=== PATIENT | female | born 1980 | race Caucasian/White ===

== ENCOUNTER → 2020-08-19 10:02 | Outpatient (BNVA) | payer OTHER, SELFPAY | PROVIDERS: Visit Provider Obstetrics & Gynecology | DX: Z76.89 Persons encountering health services in other specified circumstances (principal) ==

== ENCOUNTER → 2021-01-02 08:04 | Outpatient (BNVA) | payer OTHER, SELFPAY | PROVIDERS: PCP Internal Medicine; Visit Provider Obstetrics & Gynecology | DX: N92.1 Excessive and frequent menstruation with irregular cycle (principal); Z79.899 Other long term (current) drug therapy | CPT/HCPCS: 81025 ==

== ENCOUNTER 2021-07-26 09:00 | Outpatient (REF) | payer OTHER, SELFPAY ==
[2021-07-26 09:15] LABS: MANUAL DIFF FLAG NO
[2021-07-26 10:28] LABS: Basophils Absolute Auto 0.1 X10*3/uL (0.0-0.2); Basophils Percent Auto 1.2 % (0-2); Eosinophils Absolute Auto 0.1 X10*3/uL (0.0-0.4); Eosinophils Percent Auto 1.6 % (0-4); Hematocrit 44.8 % (37.0-47.0); Hemoglobin 15.2 g/dl (12.0-16.0); Imm Gran Abs Auto 0.02 X10*3/uL (0.00-0.03); Imm Gran Pct Auto 0.3 % (0.0-0.4); Lymphocytes Absolute Auto 2.2 X10*3/uL (1.2-4.9); Lymphocytes Percent Auto 30.9 % (20-40); Mean Corpuscular HGB Conc 33.9 g/dl (31.0-35.0); Mean Corpuscular Hemoglobin 30.1 pg (27.0-33.0); Mean Corpuscular Volume 88.7 fL (80.0-98.0); Mean Platelet Volume 9.6 fL (9.4-12.3); Monocytes Absolute Auto 0.6 X10*3/uL (0.1-1.2); Monocytes Percent Auto 8.8 % (2-11); Neutrophils Percent Auto 57.2 % (45-73); Platelet Count 526 X10*3/uL (160-400); Red Blood Count 5.05 X10*6/uL (4.20-5.50); Red Cell Distribution Width 13.1 % (11.0-16.0)
[2021-07-26 11:08] LABS: Free T4 (Free Thyroxine) 1.09 ng/dL (0.71-1.85); Thyroid Stimulating Hormone 1.23 uIU/mL (0.32-4.0); Vitamin D 25-OH Total 26.5 ng/mL (>30)
[2021-07-26 11:24] LABS: Alanine Aminotransferase 27 U/L (0-31); Albumin Level 4.5 g/dL (3.5-5.0); Alkaline Phosphatase 80 U/L (39-117); Anion Gap 16 (12-20); Aspartate Amino Transferase 25 U/L (5-31); Bilirubin Total 0.4 mg/dL (0.0-1.0); Blood Urea Nitrogen 13 mg/dL (9-16); Calcium 9.4 mg/dL (8.4-10.2); Carbon Dioxide 26 mmol/L (22-29); Chloride 101 mmol/L (96-108); Cholesterol 258 mg/dL; Estimated Glomerular Filt Rate > 60; Glucose Random 85 mg/dL (60-115); HDL Cholesterol 89 mg/dL; LDL Cholesterol Calculated 153 mg/dl; Potassium 3.8 mmol/L (3.3-5.1); Sodium 139 mmol/L (135-145); Total Protein 8.3 g/dL (6.5-8.0); Triglycerides 82 mg/dL
[2021-07-28 08:29] LABS: HBS Num1 47.78 mIU/mL (0-7.99); Hepatitis B Surface Antigen Negative (Negative); ~HepC Num1 0.08 S/CO (0.00-0.79); ~Hepatitis B Surface Antibody REACTIVE (Nonreactive); ~Hepatitis C Antibody Nonreactive (Nonreactive)
[2021-07-28 08:42] LABS: HBc Num1 0.05 S/CO (0.00-0.79); Hepatitis B Core Antibody Nonreactive (Nonreactive)
[2021-07-28 09:40] LABS: Folate > 20.0 ng/mL (> or = 4.0); Vitamin B12 374 pg/mL (200-900)
== END 2021-07-26 09:01 | disposition home or self-care (01) ==
LOC: HO.LAB 09:00
PROVIDERS: PCP Internal Medicine; Visit Provider Internal Medicine
DX: D75.839 Thrombocytosis, unspecified (principal); E78.00 Pure hypercholesterolemia, unspecified; R79.89 Other specified abnormal findings of blood chemistry; R94.5 Abnormal results of liver function studies; I10 Essential (primary) hypertension
CPT/HCPCS: 36415; 80053; 80061; 82306; 82607; 82746; 84439; 84443; 85025; 86704; 86706; 86803; 87340

== ENCOUNTER 2021-10-18 09:52 | Outpatient (REF) | payer OTHER, SELFPAY ==
[2021-10-18 10:17] LABS: MANUAL DIFF FLAG NO
[2021-10-18 11:59] LABS: Basophils Absolute Auto 0.1 X10*3/uL (0.0-0.2); Basophils Percent Auto 0.8 % (0-2); Eosinophils Absolute Auto 0.4 X10*3/uL (0.0-0.4); Eosinophils Percent Auto 4.5 % (0-4); Hematocrit 43.3 % (37.0-47.0); Hemoglobin 13.9 g/dl (12.0-16.0); Imm Gran Abs Auto 0.02 X10*3/uL (0.00-0.03); Imm Gran Pct Auto 0.3 % (0.0-0.4); Lymphocytes Absolute Auto 2.1 X10*3/uL (1.2-4.9); Lymphocytes Percent Auto 27.7 % (20-40); Mean Corpuscular HGB Conc 32.1 g/dl (31.0-35.0); Mean Corpuscular Hemoglobin 30.1 pg (27.0-33.0); Mean Corpuscular Volume 93.7 fL (80.0-98.0); Mean Platelet Volume 10.1 fL (9.4-12.3); Monocytes Absolute Auto 0.7 X10*3/uL (0.1-1.2); Monocytes Percent Auto 8.8 % (2-11); Neutrophils Absolute Auto 4.5 x10*3/uL (2.0-8.3); Neutrophils Percent Auto 57.9 % (45-73); Platelet Count 390 X10*3/uL (160-400); Red Blood Count 4.62 X10*6/uL (4.20-5.50); Red Cell Distribution Width 13.3 % (11.0-16.0); White Blood Count 7.7 X10*3/uL (4.8-10.8)
[2021-10-18 12:18] LABS: Alanine Aminotransferase 20 U/L (0-31); Alkaline Phosphatase 81 U/L (39-117); Anion Gap 12 (12-20); Aspartate Amino Transferase 21 U/L (5-31); Bilirubin Direct 0.2 mg/dL (0.0-0.5); Bilirubin Total 0.6 mg/dL (0.0-1.0); Blood Urea Nitrogen 13 mg/dL (9-16); Calcium 9.1 mg/dL (8.4-10.2); Carbon Dioxide 28 mmol/L (22-29); Chloride 103 mmol/L (96-108); Cholesterol 254 mg/dL; Estimated Glomerular Filt Rate > 60; Glucose Fasting 77 mg/dL (60-99); HDL Cholesterol 84 mg/dL; LDL Cholesterol Calculated 144 mg/dl; Potassium 4.5 mmol/L (3.3-5.1); Sodium 138 mmol/L (135-145); Total Protein 7.5 g/dL (6.5-8.0); Triglycerides 131 mg/dL
== END 2021-10-18 09:53 | disposition home or self-care (01) ==
LOC: HO.LAB 09:52
PROVIDERS: PCP Internal Medicine; Visit Provider Nurse Practitioner Family
DX: Z00.00 Encounter for general adult medical examination without abnormal findings (principal); E78.5 Hyperlipidemia, unspecified; R79.89 Other specified abnormal findings of blood chemistry; I10 Essential (primary) hypertension; E78.00 Pure hypercholesterolemia, unspecified; D75.839 Thrombocytosis, unspecified
CPT/HCPCS: 36415; 80048; 80061; 80076; 85025

== ENCOUNTER 2021-11-24 10:16 | Outpatient (REF) | payer OTHER, SELFPAY ==
[2021-11-27 11:00] LABS: HPV mRNA E6/E7 rflx Not Detected (Not Detected)
== END 2021-11-24 10:17 | disposition home or self-care (01) ==
LOC: HO.LNP 10:16
PROVIDERS: PCP Internal Medicine; Visit Provider Obstetrics & Gynecology
DX: Z01.419 Encounter for gynecological examination (general) (routine) without abnormal findings (principal)
CPT/HCPCS: 87624; 88142

== ENCOUNTER 2021-12-04 07:34 | Outpatient (REF) | payer OTHER, SELFPAY ==
--- NOTE | ~2021-12-04 | MM_ITS ---
EXAMINATION: MM SCREENING DIGITAL BREAST TOMOSYNTHESIS, BILATERAL CLINICAL INFORMATION: Screening. Asymptomatic. The lifetime risk of breast cancer based on the Tyrer-Cuzick Model is 11.2%. COMPARISON: Mammography: 06/12/2020 and 09/07/2018 TECHNIQUE: Digital breast tomosynthesis is performed in both the craniocaudal and mediolateral oblique views along with computer-aided detection (CAD). Synthesized 2D images are generated from the tomosynthesis. FINDINGS: The breasts are heterogeneously dense, which may obscure small masses (ACR BI-RADS breast composition Category c). There is a stable parenchymal pattern of the right breast without new abnormal dominant mass or suspicious grouping of microcalcifications. Within the left breast inferiorly approximately 3.5 cm from the nipple, without definite correlation on craniocaudal view is a region of architectural distortion for which spot compression film in mediolateral oblique projection and 90-degree mediolateral view are recommended. MM/MM tomosynthesis screening BI IMPRESSION: Left breast density for further evaluation, as described. ASSESSMENT: BI-RADS 0: Incomplete - Need Additional Imaging Evaluation. RECOMMENDATION: 1. Additional views of the left breast. 2. Targeted ultrasound if warranted after review of the additional views. 3. Radiology department staff will contact the patient for additional imaging. This patient's information was entered into a reminder system with a target due date for their next mammogram.
== END 2021-12-04 07:35 | disposition home or self-care (01) ==
LOC: HO.MAMMO 07:34
PROVIDERS: Visit Provider Obstetrics & Gynecology
DX: Z12.31 Encounter for screening mammogram for malignant neoplasm of breast (principal)
CPT/HCPCS: 77063; 77067

== ENCOUNTER 2021-12-22 13:26 | Outpatient (REF) | payer OTHER, SELFPAY ==
--- NOTE | ~2021-12-22 | MM_ITS ---
EXAMINATION: MM DIAGNOSTIC DIGITAL BREAST TOMOSYNTHESIS, LEFT CLINICAL INFORMATION: Recall from screening for question of architectural changes on synthesized left MLO view. COMPARISON: Mammography: 12/04/2021, 06/12/2020, 09/07/2018 (baseline). TECHNIQUE: Digital breast tomosynthesis is performed. 2D images are generated from the tomosynthesis. The following views are obtained: Spot MLO, standard ML. FINDINGS: There are scattered areas of fibroglandular density (ACR BI-RADS breast composition Category b). Breast tissue composition borders on heterogeneously dense. The additional views show no architectural changes in the area of recent concern. There is no developing density or mass. No significant changes from prior studies. Results are discussed with the patient at time of visit. MM/MM tomosynthesis added views L IMPRESSION: Additional views show no architectural abnormality or other interval changes from prior studies. ASSESSMENT: BI-RADS 1: Negative RECOMMENDATION: Routine annual mammography screening. This patient's information was entered into a reminder system with a target due date for their next mammogram.
== END 2021-12-22 13:27 | disposition home or self-care (01) ==
LOC: HO.MAMMO 13:26
PROVIDERS: PCP Internal Medicine; Visit Provider Internal Medicine
DX: N64.89 Other specified disorders of breast (principal)
CPT/HCPCS: 77061; 77065

== ENCOUNTER 2022-01-07 14:45 | Outpatient (REF) | payer OTHER, SELFPAY ==
[2022-01-07 16:26] LABS: Hematocrit 38.2 % (37.0-47.0); Hemoglobin 12.7 g/dl (12.0-16.0); Mean Corpuscular HGB Conc 33.2 g/dl (31.0-35.0); Mean Corpuscular Hemoglobin 30.4 pg (27.0-33.0); Mean Corpuscular Volume 91.4 fL (80.0-98.0); Mean Platelet Volume 10.1 fL (9.4-12.3); Platelet Count 433 X10*3/uL (160-400); Red Blood Count 4.18 X10*6/uL (4.20-5.50); Red Cell Distribution Width 13.1 % (11.0-16.0); White Blood Count 7.7 X10*3/uL (4.8-10.8)
[2022-01-07 17:22] LABS: HCG Quantitative < 2 mIU/mL; TSH reflex Free T4 1.37 uIU/mL (0.32-4.0)
[2022-01-08 05:14] LABS: CT PCR NOT DETECTED (Not Detect.); NG PCR NOT DETECTED (Not Detect.)
== END 2022-01-07 14:46 | disposition home or self-care (01) ==
LOC: HO.LAB 14:45
PROVIDERS: PCP Internal Medicine; Visit Provider Obstetrics & Gynecology
DX: N93.9 Abnormal uterine and vaginal bleeding, unspecified (principal)
CPT/HCPCS: 36415; 58100; 84443; 84702; 85027; 87491; 87591; 88305

== ENCOUNTER 2022-01-27 15:41 | Outpatient (REF) | payer OTHER, SELFPAY ==
--- NOTE | ~2022-01-27 | US_ITS ---
EXAMINATION: US PELVIS CLINICAL INFORMATION: Abnormal uterine and vaginal bleeding COMPARISON: Previous pelvic ultrasound February 2020 TECHNIQUE: Ultrasound of the pelvis is performed using both transabdominal and transvaginal transducers along with Doppler. Transvaginal imaging is performed due to inadequate visualization transabdominally. FINDINGS: The uterus is anteverted and measures 11.3 x 5.6 x 6 cm in dimension. This is increased in size from 8.3 x 4.7 x 4.9 cm on prior 2019 exam. Uterine echotexture is heterogeneous. The endometrium is difficult to define. Appearance is questionable for adenomyomatosis. Endometrial thickness is estimated at 0.6 cm. There are 2 focal lesions in the uterine fundus measuring 3.6 x 3.6 x 2.9 cm and 2.6 x 2.6 x 2.3 cm on questionable for fibroids or adenomyomas. These measure 2.4 x 2.1 x 2.3 cm and 1.8 x 1.9 x 2.1 cm and appear increased in size. The right ovary measures 2.2 x 1.7 x 1.3 cm. There is a small complex cyst in the right ovary measuring 7 x 8 mm. The left ovary is not seen. There is a small amount of fluid in the pelvis. US/US pelvic and transvaginal IMPRESSION: Enlarged heterogeneous uterus with ill-defined endometrium. Findings are questionable for adenomyomatosis. The uterus appears increased in size from previous exam. 2 focal fundal uterine lesions questionable for fibroids versus adenomyomas.
== END 2022-01-27 15:42 | disposition home or self-care (01) ==
LOC: HO.US 15:41
PROVIDERS: Visit Provider Obstetrics & Gynecology
DX: N93.9 Abnormal uterine and vaginal bleeding, unspecified (principal)
CPT/HCPCS: 76830; 76856

== ENCOUNTER → 2022-02-11 08:45 | Outpatient (BNVA) | payer OTHER, SELFPAY | PROVIDERS: PCP Internal Medicine; Visit Provider Obstetrics & Gynecology | DX: Z13.89 Encounter for screening for other disorder (principal) ==

== ENCOUNTER 2022-03-28 15:30 | Outpatient (REF) | payer OTHER, SELFPAY | END 2022-03-28 15:31 | disposition home or self-care (01) | LOC: HO.LNP 15:30 | PROVIDERS: Visit Provider Physician Assistant Medical | DX: L03.032 Cellulitis of left toe (principal) | CPT/HCPCS: 87071; 87205 ==

== ENCOUNTER 2022-04-22 17:12 | Emergency (ER) | payer OTHER, SELFPAY ==
[2022-04-22 17:56] VITALS: BP 146/93; PULSE 77; RESP 18; TEMP 37.3; O2SAT 98; BMI 25.9
[2022-04-22 20:10] LABS: MANUAL DIFF FLAG NO
[2022-04-22 20:14] LABS: UPreg QC Valid YES; Urine Pregnancy NEGATIVE (NEGATIVE)
[2022-04-22 20:15] LABS: Basophils Absolute Auto 0.1 X10*3/uL (0.0-0.2); Basophils Percent Auto 0.3 % (0-2); Hematocrit 42.9 % (37.0-47.0); Hemoglobin 14.4 g/dl (12.0-16.0); Imm Gran Abs Auto 0.06 X10*3/uL (0.00-0.03); Imm Gran Pct Auto 0.3 % (0.0-0.4); Lymphocytes Absolute Auto 1.1 X10*3/uL (1.2-4.9); Lymphocytes Percent Auto 5.8 % (20-40); Mean Corpuscular HGB Conc 33.6 g/dl (31.0-35.0); Mean Corpuscular Hemoglobin 29.1 pg (27.0-33.0); Mean Corpuscular Volume 86.8 fL (80.0-98.0); Mean Platelet Volume 9.2 fL (9.4-12.3); Monocytes Absolute Auto 0.9 X10*3/uL (0.1-1.2); Monocytes Percent Auto 4.7 % (2-11); Neutrophils Absolute Auto 17.2 x10*3/uL (2.0-8.3); Neutrophils Percent Auto 88.9 % (45-73); Platelet Count 425 X10*3/uL (160-400); Red Blood Count 4.94 X10*6/uL (4.20-5.50); Red Cell Distribution Width 14.1 % (11.0-16.0); White Blood Count 19.3 X10*3/uL (4.8-10.8)
[2022-04-22 20:27] LABS: Alanine Aminotransferase 14 U/L (0-31); Albumin Level 4.4 g/dL (3.5-5.0); Alkaline Phosphatase 104 U/L (39-117); Anion Gap 16 (12-20); Aspartate Amino Transferase 18 U/L (5-31); Bilirubin Total 0.5 mg/dL (0.0-1.0); Blood Urea Nitrogen 13 mg/dL (9-16); Calcium 9.4 mg/dL (8.4-10.2); Carbon Dioxide 22 mmol/L (22-29); Chloride 102 mmol/L (96-108); Creatinine Clr Calc Pharmacy 70.5; Estimated Glomerular Filt Rate > 60; Glucose Random 124 mg/dL (60-115); Potassium 4.2 mmol/L (3.3-5.1); Sodium 136 mmol/L (135-145); Total Protein 8.3 g/dL (6.5-8.0)
== END 2022-04-23 00:47 | disposition left against medical advice (07) ==
LOC: HO.ED 04-23 00:45
PROVIDERS: Emergency Provider Emergency Medicine; PCP Obstetrics & Gynecology
DX: R10.30 Lower abdominal pain, unspecified (principal)
CPT/HCPCS: 36415; 80053; 81025; 85025; 99281; 99283

== ENCOUNTER 2022-04-30 08:48 | Outpatient (REF) | payer OTHER, SELFPAY ==
[2022-04-30 09:01] LABS: MANUAL DIFF FLAG NO
[2022-04-30 09:30] LABS: Basophils Absolute Auto 0.1 X10*3/uL (0.0-0.2); Basophils Percent Auto 1.5 % (0-2); Eosinophils Absolute Auto 0.2 X10*3/uL (0.0-0.4); Eosinophils Percent Auto 3.1 % (0-4); Imm Gran Abs Auto 0.03 X10*3/uL (0.00-0.03); Imm Gran Pct Auto 0.5 % (0.0-0.4); Lymphocytes Absolute Auto 2.1 X10*3/uL (1.2-4.9); Lymphocytes Percent Auto 31.6 % (20-40); Mean Corpuscular HGB Conc 32.7 g/dl (31.0-35.0); Mean Corpuscular Hemoglobin 29.3 pg (27.0-33.0); Mean Corpuscular Volume 89.4 fL (80.0-98.0); Mean Platelet Volume 9.5 fL (9.4-12.3); Monocytes Absolute Auto 0.6 X10*3/uL (0.1-1.2); Monocytes Percent Auto 8.7 % (2-11); Neutrophils Absolute Auto 3.6 x10*3/uL (2.0-8.3); Neutrophils Percent Auto 54.6 % (45-73); Platelet Count 530 X10*3/uL (160-400); Red Blood Count 3.69 X10*6/uL (4.20-5.50); Red Cell Distribution Width 13.7 % (11.0-16.0); White Blood Count 6.5 X10*3/uL (4.8-10.8)
[2022-04-30 09:35] LABS: Hemoglobin 10.8 g/dl (12.0-16.0)
[2022-04-30 09:57] LABS: Alanine Aminotransferase 14 U/L (0-31); Alkaline Phosphatase 77 U/L (39-117); Anion Gap 14 (12-20); Aspartate Amino Transferase 16 U/L (5-31); Bilirubin Direct < 0.2 mg/dL (0.0-0.5); Bilirubin Total < 0.2 mg/dL (0.0-1.0); Blood Urea Nitrogen 16 mg/dL (9-16); Carbon Dioxide 24 mmol/L (22-29); Chloride 106 mmol/L (96-108); Cholesterol 219 mg/dL; Estimated Glomerular Filt Rate > 60; Glucose Random 94 mg/dL (60-115); HDL Cholesterol 66 mg/dL; LDL Cholesterol Calculated 132 mg/dl; Potassium 4.9 mmol/L (3.3-5.1); Sodium 139 mmol/L (135-145); Total Protein 7.1 g/dL (6.5-8.0); Triglycerides 105 mg/dL
[2022-05-05 08:32] LABS: CA-125 193 U/mL (<35)
== END 2022-04-30 08:49 | disposition home or self-care (01) ==
LOC: HO.LAB 08:48
PROVIDERS: Nurse Practitioner Family; PCP Internal Medicine; Visit Provider Obstetrics & Gynecology
DX: I10 Essential (primary) hypertension (principal); D75.839 Thrombocytosis, unspecified; E78.00 Pure hypercholesterolemia, unspecified; E78.5 Hyperlipidemia, unspecified
CPT/HCPCS: 36415; 80048; 80061; 80076; 85025; 86304

== ENCOUNTER 2022-05-19 11:03 | Outpatient (REF) | payer OTHER, SELFPAY ==
--- NOTE | ~2022-05-19 | MR_ITS ---
EXAMINATION: MR PELVIS WITHOUT AND WITH CONTRAST CLINICAL INFORMATION: Elevated CA 125. Ovarian cyst. COMPARISON: Previous pelvic ultrasounds most recent 01/27/2022. TECHNIQUE: Sagittal, axial and coronal sequences through the pelvis with and without contrast. The patient received 5.5 mL intravenous Gadavist contrast. FINDINGS: The uterus is enlarged measuring 11.3 x 7.5 x 8 cm in AP, transverse and longitudinal dimension. The endometrium does not appear thickened measuring 4-5 mm. The junctional zone is difficult to define. There are small high T2 foci seen centrally in the uterus surrounding the endometrium. Appearance is suggestive of adenomyomatosis. A focal uterine lesion is not appreciated. The left ovary measures 3.8 x 2.7 x 3.4 cm and contains a 2.3 x 3.2 x 2.9 cm simple cyst. The right ovary is not well visualized. No right adnexal mass is seen. The cervix is normal appearing. There is trace fluid in the pelvis. No ascites or adenopathy. Vascular structures are normal. No hernia. Bony structures are normal. MR/MR pelvis wo/w con IMPRESSION: Enlarged heterogeneous uterus suggestive of adenomyosis. No focal uterine lesion is seen. 2.3 x 3.2 x 2.9 cm simple left ovarian cyst. Trace fluid in the pelvis.
== END 2022-05-19 11:04 | disposition home or self-care (01) ==
LOC: HO.MRI 11:03
PROVIDERS: Visit Provider Obstetrics & Gynecology
DX: R97.1 Elevated cancer antigen 125 [CA 125] (principal)
CPT/HCPCS: 72197; A9585

== ENCOUNTER 2022-06-05 07:53 | Outpatient (REF) | payer OTHER, SELFPAY ==
[2022-06-11 09:02] LABS: CA-125 105 U/mL (<35)
== END 2022-06-05 07:54 | disposition home or self-care (01) ==
LOC: HO.LAB 07:53
PROVIDERS: PCP Internal Medicine; Visit Provider Obstetrics & Gynecology
DX: R97.1 Elevated cancer antigen 125 [CA 125] (principal)
CPT/HCPCS: 36415; 86304

== ENCOUNTER 2022-06-11 13:41 | Outpatient (REF) | payer OTHER, SELFPAY ==
--- NOTE | ~2022-06-11 | US_ITS ---
EXAMINATION: US PELVIS CLINICAL INFORMATION: Ovarian cyst and elevated labs. COMPARISON: None. TECHNIQUE: Ultrasound of the pelvis is performed using both transabdominal and transvaginal transducers along with Doppler. Transvaginal imaging is performed due to inadequate visualization transabdominally. FINDINGS: Uterus: The uterus is anteverted, anteflexed and measures 11.2 cm in length, 6.3 mL in AP and 6.9 cm in transverse dimension. The double wall endometrial thickness is 0.3 x 0.5 cm. The uterus is smooth in contour and heterogeneous. No visible fibroid. Previously visualized fibroid is not seen at this time. Adnexa: Both ovaries are visualized. There is normal color flow to the adnexa. There is no ovarian torsion. There is no pelvic ascites or fluid collection. Right ovary measures 2.2 x 1.4 x 1.1 cm and volume 1.8 mL. There is trace fluid surrounding the right ovary. Previously, the ovary measured 2.2 x 1.7 x 1.3 cm and volume 2.5 mL. Left ovary measures 2.2 x 1.8 x 1.6 cm and volume 3.3 mL; previously it measured 1.7 x 1.5 x 1.2 cm. Complex-appearing cyst measures 1.3 x 1.4 x 1.3 cm. There is minimal free fluid seen in cul-de-sac. US/US pelvic and transvaginal IMPRESSION: Heterogeneous enlarged uterus with no fibroids seen. Complex-appearing cyst left ovary measuring 1.4 c.m There is trace fluid surrounding right ovary and in the cul-de-sac.
== END 2022-06-11 13:42 | disposition home or self-care (01) ==
LOC: HO.US 13:41
PROVIDERS: Visit Provider Obstetrics & Gynecology
DX: N83.292 Other ovarian cyst, left side (principal); R78.9 Finding of unspecified substance, not normally found in blood
CPT/HCPCS: 76830; 76856

== ENCOUNTER 2022-07-08 08:21 | Outpatient (REF) | payer OTHER, SELFPAY ==
[2022-07-08 08:36] LABS: MANUAL DIFF FLAG NO
[2022-07-08 09:03] LABS: Basophils Absolute Auto 0.1 X10*3/uL (0.0-0.2); Basophils Percent Auto 1.5 % (0-2); Eosinophils Absolute Auto 0.5 X10*3/uL (0.0-0.4); Eosinophils Percent Auto 7.8 % (0-4); Hematocrit 32.8 % (37.0-47.0); Hemoglobin 10.4 g/dl (12.0-16.0); Imm Gran Abs Auto 0.02 X10*3/uL (0.00-0.03); Imm Gran Pct Auto 0.3 % (0.0-0.4); Lymphocytes Absolute Auto 1.9 X10*3/uL (1.2-4.9); Lymphocytes Percent Auto 29.8 % (20-40); Mean Corpuscular HGB Conc 31.7 g/dl (31.0-35.0); Mean Corpuscular Hemoglobin 25.9 pg (27.0-33.0); Mean Corpuscular Volume 81.6 fL (80.0-98.0); Mean Platelet Volume 9.6 fL (9.4-12.3); Monocytes Absolute Auto 0.6 X10*3/uL (0.1-1.2); Monocytes Percent Auto 9.2 % (2-11); Neutrophils Absolute Auto 3.3 x10*3/uL (2.0-8.3); Neutrophils Percent Auto 51.4 % (45-73); Platelet Count 485 X10*3/uL (160-400); Red Blood Count 4.02 X10*6/uL (4.20-5.50); Red Cell Distribution Width 15.3 % (11.0-16.0); White Blood Count 6.5 X10*3/uL (4.8-10.8)
[2022-07-08 09:27] LABS: Iron 31 mcg/dL (30-160); Percent Iron Saturation 6 % (15-50); Total Iron Binding Capacity 536 mcg/dL (228-428); Unsaturated Iron Binding 505 ug/dL
== END 2022-07-08 08:22 | disposition home or self-care (01) ==
LOC: HO.LAB 08:21
PROVIDERS: PCP Internal Medicine; Visit Provider Internal Medicine
DX: D64.9 Anemia, unspecified (principal)
CPT/HCPCS: 36415; 83540; 85025

== ENCOUNTER 2022-07-24 09:06 | Outpatient (REF) | payer OTHER, SELFPAY ==
[2022-07-24 09:38] LABS: Hematocrit 35.8 % (37.0-47.0); Hemoglobin 10.6 g/dl (12.0-16.0); Mean Corpuscular HGB Conc 29.6 g/dl (31.0-35.0); Mean Corpuscular Hemoglobin 24.2 pg (27.0-33.0); Mean Corpuscular Volume 81.7 fL (80.0-98.0); Mean Platelet Volume 9.3 fL (9.4-12.3); Platelet Count 591 X10*3/uL (160-400); Red Blood Count 4.38 X10*6/uL (4.20-5.50); Red Cell Distribution Width 17.2 % (11.0-16.0)
== END 2022-07-24 09:07 | disposition home or self-care (01) ==
LOC: HO.LAB 09:06
PROVIDERS: Visit Provider Obstetrics & Gynecology
DX: N93.9 Abnormal uterine and vaginal bleeding, unspecified (principal)
CPT/HCPCS: 36415; 85027

== ENCOUNTER → 2022-08-17 08:40 | Outpatient (BNV) | payer OTHER, SELFPAY | PROVIDERS: PCP Internal Medicine; Referring Provider Internal Medicine; Visit Provider Internal Medicine Medical Oncology | DX: D50.0 Iron deficiency anemia secondary to blood loss (chronic) (principal) | CPT/HCPCS: 99213 ==

== ENCOUNTER 2022-10-08 14:46 | Outpatient (REF) | payer OTHER, SELFPAY ==
--- NOTE | ~2022-10-08 | US_ITS ---
EXAMINATION: US PELVIS CLINICAL INFORMATION: Ovarian cysts. COMPARISON: Ultrasound pelvis 06/11/2022. TECHNIQUE: Ultrasound of the pelvis is performed using both transabdominal and transvaginal transducers along with Doppler. Transvaginal imaging is performed due to inadequate visualization transabdominally. FINDINGS: UTERUS: The uterus is anteverted, anteflexed and measures 11.1 cm in length, 6.4 cm AP and 6.5 cm in transverse dimension. The double wall endometrial thickness is 0.9 cm. The uterus is smooth in contour and has heterogeneous myometrium question adenomyomatosis. No visible fibroid. ADNEXA: Both ovaries are visualized. There is normal color flow to the adnexa. There is no ovarian torsion. There is no pelvic ascites or fluid collection. Right ovary measures 3.1 x 1.4 x 2.0 cm. Volume 4.5 mL. There is a dominant follicle measuring 1.1 x 1.5 cm. Previously right ovary measured 2.2 x 1.4 x 1.1 cm. Left ovary measures 2.8 x 1.6 x 2.0 cm and volume 4.7 mL. Previously left ovary measured 2.2 x 1.8 x 1.6 cm. There is no free fluid in the cul-de-sac. US/US pelvic and transvaginal IMPRESSION: Slightly heterogeneous uterine myometrium but no focal lesion seen. Endometrial thickness is 0.9 cm. 2.2 cm dominant follicle right ovary. The left ovary is unremarkable. There is no free fluid in the cul-de-sac.
== END 2022-10-08 14:47 | disposition home or self-care (01) ==
LOC: HO.US 14:46
PROVIDERS: PCP Internal Medicine; Visit Provider Obstetrics & Gynecology
DX: N83.299 Other ovarian cyst, unspecified side (principal)
CPT/HCPCS: 76830; 76856

== ENCOUNTER → 2022-11-25 09:59 | Outpatient (BNVA) | payer OTHER, SELFPAY | PROVIDERS: PCP Internal Medicine; Visit Provider Obstetrics & Gynecology | DX: Z13.89 Encounter for screening for other disorder (principal) ==

== ENCOUNTER 2022-12-10 08:07 | Outpatient (REF) | payer OTHER, SELFPAY ==
--- NOTE | ~2022-12-10 | MM_ITS ---
EXAMINATION: MM SCREENING DIGITAL BREAST TOMOSYNTHESIS, BILATERAL CLINICAL INFORMATION: Screening. Asymptomatic. The lifetime risk of breast cancer based on the Tyrer-Cuzick Model is 11.0%. COMPARISON: Mammography: December 22, 2021 and studies dating back to September 07, 2018 TECHNIQUE: Digital breast tomosynthesis is performed in both the craniocaudal and mediolateral oblique views along with computer-aided detection (CAD). Synthesized 2D images are generated from the tomosynthesis. FINDINGS: The breasts are heterogeneously dense, which may obscure small masses (ACR BI-RADS breast composition Category c). There are no significant masses, abnormal calcifications, or other abnormalities. MM/MM tomosynthesis screening BI IMPRESSION: No significant changes ASSESSMENT: BI-RADS 1: Negative RECOMMENDATION: Routine annual mammography screening. This patient's information was entered into a reminder system with a target due date for their next mammogram.
== END 2022-12-10 08:08 | disposition home or self-care (01) ==
LOC: HO.MAMMO 08:07
PROVIDERS: PCP Internal Medicine; Visit Provider Internal Medicine
DX: Z12.31 Encounter for screening mammogram for malignant neoplasm of breast (principal)
CPT/HCPCS: 77063; 77067

== ENCOUNTER 2023-02-02 08:01 | Outpatient (REF) | payer OTHER, SELFPAY ==
[2023-02-02 08:27] LABS: MANUAL DIFF FLAG NO
[2023-02-02 09:10] LABS: Basophils Absolute Auto 0.1 X10*3/uL (0.0-0.2); Basophils Percent Auto 1.3 % (0-2); Eosinophils Absolute Auto 0.2 X10*3/uL (0.0-0.4); Eosinophils Percent Auto 2.5 % (0-4); Hematocrit 41.7 % (37.0-47.0); Hemoglobin 13.7 g/dl (12.0-16.0); Imm Gran Abs Auto 0.02 X10*3/uL (0.00-0.03); Imm Gran Pct Auto 0.3 % (0.0-0.4); Lymphocytes Absolute Auto 2.1 X10*3/uL (1.2-4.9); Lymphocytes Percent Auto 27.5 % (20-40); Mean Corpuscular HGB Conc 32.9 g/dl (31.0-35.0); Mean Corpuscular Hemoglobin 30.2 pg (27.0-33.0); Mean Corpuscular Volume 91.9 fL (80.0-98.0); Mean Platelet Volume 9.5 fL (9.4-12.3); Monocytes Absolute Auto 0.7 X10*3/uL (0.1-1.2); Monocytes Percent Auto 8.7 % (2-11); Neutrophils Absolute Auto 4.6 x10*3/uL (2.0-8.3); Neutrophils Percent Auto 59.7 % (45-73); Platelet Count 618 X10*3/uL (160-400); Red Blood Count 4.54 X10*6/uL (4.20-5.50); Red Cell Distribution Width 13.1 % (11.0-16.0); White Blood Count 7.7 X10*3/uL (4.8-10.8)
[2023-02-02 10:04] LABS: Alanine Aminotransferase 20 U/L (0-31); Alkaline Phosphatase 84 U/L (39-117); Anion Gap 12 (12-20); Aspartate Amino Transferase 17 U/L (5-31); Bilirubin Total 0.3 mg/dL (0.0-1.0); Blood Urea Nitrogen 15 mg/dL (9-16); Calcium 9.1 mg/dL (8.4-10.2); Carbon Dioxide 24 mmol/L (22-29); Chloride 107 mmol/L (96-108); Cholesterol 202 mg/dL; Estimated Glomerular Filt Rate > 60; Glucose Fasting 92 mg/dL (60-99); HDL Cholesterol 66 mg/dL; Iron 63 mcg/dL (30-160); LDL Cholesterol Calculated 117 mg/dl; Percent Iron Saturation 19 % (15-50); Potassium 4.8 mmol/L (3.3-5.1); Sodium 138 mmol/L (135-145); Total Iron Binding Capacity 329 mcg/dL (228-428); Total Protein 7.1 g/dL (6.5-8.0); Triglycerides 96 mg/dL; Unsaturated Iron Binding 266 ug/dL
[2023-02-02 10:33] LABS: Folate 14.1 ng/mL (> or = 4.0); Vitamin B12 676 pg/mL (200-900); Vitamin D 25-OH Total 26.1 ng/mL (>30)
[2023-02-03 04:22] LABS: HBS Num1 35.87 mIU/mL (0-7.99); HBc Num1 0.07 S/CO (0.00-0.79); HBsAGNum1 0.27 S/CO (0.00-0.99); Hepatitis B Core Antibody Nonreactive (Nonreactive); Hepatitis B Surface Antigen Negative (Negative); ~Hepatitis B Surface Antibody REACTIVE (Nonreactive)
[2023-02-04 05:33] LABS: Mumps Virus IgG Antibody <9.00 AU/mL; Rubella IgG Antibody 2.22 Index; Varicella IgG Antibody <135.00 index
[2023-02-04 22:33] LABS: TS Negative Control Passed; TS Panel A 6; TS Panel B 7; TS Positive Control Passed; TSpotTB Borderline (Negative)
== END 2023-02-02 08:02 | disposition home or self-care (01) ==
LOC: HO.LAB 08:01
PROVIDERS: PCP Internal Medicine; Visit Provider Internal Medicine
DX: Z01.84 Encounter for antibody response examination (principal); E55.9 Vitamin D deficiency, unspecified; E53.8 Deficiency of other specified B group vitamins; E78.00 Pure hypercholesterolemia, unspecified; D64.9 Anemia, unspecified; Z11.1 Encounter for screening for respiratory tuberculosis
CPT/HCPCS: 36415; 80053; 80061; 82306; 82607; 82746; 83540; 85025; 86481; 86704; 86706; 86735; 86762; 86765; 86787; 87340

== ENCOUNTER → 2023-03-04 09:06 | Outpatient (BNVA) | payer OTHER, SELFPAY | PROVIDERS: PCP Internal Medicine; Visit Provider Obstetrics & Gynecology ==

== ENCOUNTER 2023-03-10 14:40 | Outpatient (REF) | payer OTHER, SELFPAY ==
--- NOTE | ~2023-03-10 | US_ITS ---
EXAMINATION: US PELVIS CLINICAL INFORMATION: Uterine hypertrophy; the last menstrual period was on 03/10/2023. COMPARISON: None available. TECHNIQUE: Ultrasound of the pelvis is performed using both transabdominal and transvaginal transducers along with Doppler. Transvaginal imaging is performed due to inadequate visualization transabdominally. FINDINGS: Uterus: The uterus is anteverted and anteflexed. The uterus measures 11.7 x 6.2 x 6.4 cm. The double wall endometrial thickness is 0.6 mm. The uterus is smooth in contour and again has heterogeneous myometrial echogenicity. No visible fibroid. Adnexa: Both ovaries are visualized. There is normal color flow to the adnexa. There is no ovarian torsion. There is no pelvic ascites or fluid collection. There is a small amount of nonspecific free fluid in the cul-de-sac. Right ovary measures 2.1 x 1.0 x 1.1 cm, volume 1.2 mL. Left ovary measures 2.0 x 0.8 x 1.3 cm, volume 1.1 mL. US/US pelvic and transvaginal IMPRESSION: 1. Again, there is a heterogeneous uterine myometrium, without focal lesion demonstrated. 2. There is a small amount of nonspecific free fluid within the cul-de-sac.
== END 2023-03-10 14:41 | disposition home or self-care (01) ==
LOC: HO.US 14:40
PROVIDERS: PCP Internal Medicine; Visit Provider Obstetrics & Gynecology
DX: N85.2 Hypertrophy of uterus (principal)
CPT/HCPCS: 76830; 76856

== ENCOUNTER 2023-04-07 12:17 | Outpatient (AMB) | payer OTHER, SELFPAY ==
[2023-04-07 12:24] VITALS: BP 114/70; BMI 26.4
--- NOTE | 2023-04-07 12:24 | A.OFFVIS_ITS ---
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 Pelvic ultrasound showed the following: Uterus: The uterus is anteverted and anteflexed. The uterus measures 11.7 x 6.2 x 6.4 cm. The double wall endometrial thickness is 0.6 mm.? The uterus is smooth in contour and again has heterogeneous myometrial echogenicity. ? No visible fibroid. Adnexa: Both ovaries are visualized. There is normal color flow to the adnexa. There is no ovarian torsion. There is no pelvic ascites or fluid collection. There is a small amount of nonspecific free fluid in the cul-de-sac. Right ovary measures 2.1 x 1.0 x 1.1 cm, volume 1.2 mL. Left ovary measures 2.0 x 0.8 x 1.3 cm, volume 1.1 mL. [facility] Medical History Asthma Endometrial hyperplasia History of anemia Hypercholesterolemia Pure hyperglyceridemia Rash due to allergy Vitamin D insufficiency Surgical History No pertinent past surgical history Family History Paternal Uncle Myocardial infarct Bipolar 1 disorder Mental health disorder Paternal Grandfather Stomach cancer Maternal Grandfather Lung cancer Mother Pancreatic cancer Father Essential hypertension Social History Household Members: Family Housing: Apartment Alcohol intake: current Alcohol intake frequency: holidays/special occasions only Patient Tobacco Use Status: Never used Tobacco e-Cigarette/Vaping Use: Never Used Second Hand Smoke Exposure: No service: No Current occupational status: employed Current occupational exposures/hazards: No Sexual orientation: Straight/Heterosexual Gender identity: Female Cognitive needs: No Hearing needs: No Vision needs: Yes (glasses) Female Reproductive History Menstrual Age of Menarche: 9 Date of last menstrual period: 03/18/23 Date of last pap smear: 11/25/21 Review of Systems Const All systems reviewed & are unremarkable except as noted in HPI and below Reports as per HPI and Reports no additional complaints GI Reports no additional complaints Reports no additional complaints Physical Exam Vital Signs: Last Vital Signs BP 114/70 04/07/23 12:24 BMI result Body Mass Index 26.4 Assessment & Plan Assessment & Plan (1) Enlarged uterus: Code(s): N85.2 - Hypertrophy of uterus Plan: Discussed with the patient the results ultrasound showing no evidence of any pathology the patient was reassured. All questions answered, the patient verbalized understanding Coding Level of Care Code Est Pt Level 3 (09549) Diagnoses Enlarged uterus N85.2
== END 2023-04-07 14:44 | disposition home or self-care (01) ==
LOC: HO.HWS 12:19
PROVIDERS: PCP Internal Medicine; Visit Provider Obstetrics & Gynecology
DX: N85.2 Hypertrophy of uterus (principal)
CPT/HCPCS: 99213

== ENCOUNTER → 2023-04-07 12:17 | Outpatient (BNVA) | payer OTHER, SELFPAY | PROVIDERS: PCP Internal Medicine; Visit Provider Obstetrics & Gynecology ==

== ENCOUNTER 2023-06-07 06:35 | Day surgery (SDC) | payer OTHER, SELFPAY ==
--- NOTE | 2023-06-04 08:57 | HO.ANESPROP2 ---
Documented by User: Kasia Quiros NP 06/04/23 08:59 HPI - Anesthesia Eval Consult details Narrative: 43yo F for Upper Endoscopy and Colonoscopy PMFSH Active Problems Active Problems: All Active Problems (Updated 06/04/23 @ 06:33 by Vibha Minaya RN) Enlarged uterus (Acute) Immunization due (Acute) Family history of pancreatic cancer (Acute) Iron deficiency anemia (Acute) Normocytic anemia (Acute) Elevated CA-125 (Acute) Iron deficiency anemia due to chronic blood loss (Acute) Microscopic hematuria (Acute) Seasonal allergic reaction (Acute) Tinea pedis (Acute) Complex ovarian cyst (Acute) Abnormal uterine bleeding (AUB) (Acute) Hyperlipidemia (Acute) Physical exam (Acute) Breast cancer screening by mammogram (Acute) Hypertension (Acute) LFT elevation (Acute) Thrombocytosis (Acute) Metrorrhagia (Acute) Well woman exam (Acute) Asthma (Acute) Hypercholesterolemia (Acute) Rash due to allergy (Acute) Past Medical History Medical History HTN (hypertension) GERD (gastroesophageal reflux disease) Endometrial hyperplasia Hypercholesterolemia Rash due to allergy History of anemia Pure hyperglyceridemia Vitamin D insufficiency Asthma Family History Family History Paternal Uncle Myocardial infarct Bipolar 1 disorder Mental health disorder Paternal Grandfather Stomach cancer Maternal Grandfather Lung cancer Mother Pancreatic cancer Father Essential hypertension Surgical History Surgical History No pertinent past surgical history Social History Social History Household Members: Family Housing: Apartment Alcohol intake: current Alcohol intake frequency: holidays/special occasions only Patient Tobacco Use Status: Never used Tobacco e-Cigarette/Vaping Use: Never Used Second Hand Smoke Exposure: No Use of substances other than those prescribed or required for medical reasons: No Advance Directives: No Advance Directives Information Provided: Yes service: No Current occupational status: employed Current occupational exposures/hazards: No Sexual orientation: Straight/Heterosexual Gender identity: Female Cognitive needs: No Hearing needs: No Vision needs: Yes (glasses) Meds Allergies Allergy/AdvReac Type Severity Reaction Status Date / Time pravastatin AdvReac Unknown myalgias Verified 05/20/23 08:57 Home Medications Medication Instructions Recorded Confirmed Last Taken Type multivitamin 1 tab PO DAILY 08/17/22 05/20/23 Unknown History famotidine 20 mg tablet 20 mg PO DAILY 01/28/23 05/20/23 Unknown History Exam Exam Date and Time: June 04, 2023 0857 Pertinent Lab Results Pertinent Lab Results: Laboratory Tests 05/20/23 08:50 WBC 6.6 Hgb 14.4 Hct 43.5 Plt Count 405 H D Sodium 137 Potassium 4.2 Chloride 104 Carbon Dioxide 27 BUN 15 Creatinine 0.78 Assessment and Plan Assessment Anesthesia Assessment: Chart Reviewed Documented by User: Zena Dexter MD 06/07/23 07:46 PMFSH Active Problems Active Problems: All Active Problems (Updated 06/07/23 @ 07:20 by Zena Dexter MD) Enlarged uterus (Acute) Immunization due (Acute) Family history of pancreatic cancer (Acute) Elevated CA-125 (Acute) Iron deficiency anemia due to chronic blood loss (Acute) Microscopic hematuria (Acute) Seasonal allergic reaction (Acute) Tinea pedis (Acute) Complex ovarian cyst (Acute) Abnormal uterine bleeding (AUB) (Acute) Hyperlipidemia (Acute) Breast cancer screening by mammogram (Acute) Hypertension (Acute) ?H/o LFT elevation (Acute)- last LFTs 05/20/23 wnl Thrombocytosis (Acute) Metrorrhagia - on medroxyprogesterone Asthma - no attacks for over 5 years Rash due to allergy (Acute) GERD controlled with meds HTN Past Medical History Medical History HTN (hypertension) GERD (gastroesophageal reflux disease) Endometrial hyperplasia Hypercholesterolemia Rash due to allergy History of anemia Pure hyperglyceridemia Vitamin D insufficiency Asthma Family History Family History Paternal Uncle Myocardial infarct Bipolar 1 disorder Mental health disorder Paternal Grandfather Stomach cancer Maternal Grandfather Lung cancer Mother Pancreatic cancer Father Essential hypertension Family history of problems with anesthesia: No Surgical History Surgical History No pertinent past surgical history History of Problems with Anesthesia: No Social History Social History Household Members: Family Housing: Apartment Alcohol intake: current Alcohol intake frequency: holidays/special occasions only Patient Tobacco Use Status: Never used Tobacco e-Cigarette/Vaping Use: Never Used Second Hand Smoke Exposure: No Use of substances other than those prescribed or required for medical reasons: No Advance Directives: No Advance Directives Information Provided: Yes service: No Current occupational status: employed Current occupational exposures/hazards: No Sexual orientation: Straight/Heterosexual Gender identity: Female Cognitive needs: No Hearing needs: No Vision needs: Yes (glasses) Meds Allergies Allergy/AdvReac Type Severity Reaction Status Date / Time pravastatin AdvReac Unknown myalgias Verified 05/20/23 08:57 Home Medications Medication Instructions Recorded Confirmed Last Taken Type multivitamin 1 tab PO DAILY 08/17/22 05/20/23 Unknown History famotidine 20 mg tablet 20 mg PO DAILY 01/28/23 05/20/23 Unknown History Exam Height,Weight and Vital Signs: Height 4 ft 9 in Weight 55.338 kg Vital Signs Temp Pulse Resp BP Pulse Ox O2 Del Method 06/07/23 07:05 98.3 F 85 16 134/87 97 Room Air Pertinent Lab Results Pertinent Lab Results: Laboratory Tests 05/20/23 08:50 WBC 6.6 Hgb 14.4 Hct 43.5 Plt Count 405 H D Sodium 137 Potassium 4.2 Chloride 104 Carbon Dioxide 27 BUN 15 Creatinine 0.78 Lab Results 06/07/23 Range/Units 06:47 Urine Test NEGATIVE (NEGATIVE) Airway Mallampati Class: II TM Dist: >3cm Neck ROM: Full Loose/Missing/Broken Teeth: No (Notches on top incisors. Denies cracked, broken, loose or missing teeth) Heart: RRR Lungs: CTAB Assessment and Plan Assessment Anesthesia Assessment: Anesthesia Plan Discussed Final Anesthetic Review Family History of Problems with Anesthesia: No History of Problems with Anesthesia: No NPO: Yes ASA Class: II Final Preanesthetic Review: No Changes in Pt Med Stat, Meds/Allgs Chart Reviewed, Consent Obtained/Reviewed and Anes Risks/Benef Reviewed Patient Risk: Low Procedure Risk: Low Assessment/Block/Sedation in SS: Assess/Block/Sedation-SS Anesthetic Plan Anesthetic Plan: MAC: Disposition: Standard PACU
--- OUTSIDE RECORDS SUMMARY | 2023-06-07 06:37 | XMS_ITS | Patient Health Record ---
Author Name Unknown Organization [facility] Address [address] [place] [id number] Care Team Providers Care Plastic Surgery Technician Name Role Phone Shanta Arthur Primary Care Provider Kayode Mathew Unavailable [phone] ALLERGIES Allergen (clinical drug ingredient) Drug/Non Drug Allergy documented on EMR Reaction Allergy Type Onset Date Status pravastatin Pravastatin Unknown Drug Allergy Act gladys REASON FOR REFERRAL No Information MEDICATIONS Medication SIG (Take, Route, Frequency, Duration) Notes Start Date End Date Status Famotidine 20 MG 1 Orally Every morning and every evening for 30 day(s) Active Multivitamin Active Loratadine 10 MG TAKE 1 TABLET BY MOUTH EVERY DAY Oral for 90 Active medroxyPROGESTERone Acetate 10 MG TAKE 1 TABLET DAILY FROM DAY 15 TO 24 OF CYCLE EVERY MONTH,DAY 1 BEING 1ST DAY OF MENSES Oral for 90 Active Ferrous Sulfate 325 (65 Fe) MG TAKE 1 TA BLET BY MOUTH TWICE DAILY Oral for 90 Active Vitamin D Active Vitamin C 500 MG TAKE 1 TABLET BY MOUTH TWICE DAILY Oral for 30 Active amLODIPine Besylate 5 MG TAKE 1 TABLET B Y MOUTH EVERY DAY Oral for 90 Active SOCIAL HISTORY Tobacco Use: Social History Observation Description Date Details (start date - stop date) Never Smoker NA - NA Sex Assigned At : Social History Observation Description Sex Assigned At Unknown Tobacco Use/Smoking Question Answer Notes Patient is a nonsmoker Alcohol Screen Question Answer Notes Did you have a drink contain ing alcohol in the past year? Yes How often did you have a dri nk containing alcohol in the past year? Never (0 point) How many drinks did you have on a typical day when you were drinking in the past year? 1 or 2 drinks (0 point) How often did you have 6 or more drinks on one occasion in the past year? Never (0 point) Points 0 Interpretation Negative PROBLEMS Problem Type ICD Code Onset Dates Problem Status W/U Status Risk SNOMED Code Notes Problem Gastroesophageal reflux disease, unspecified whether esophagitis present (K21.9) Active confirmed 208466019 Problem Screening for colon cancer (Z12.11) Active confirmed [id number] Encounters Encounter Location Date Provider Diagnosis [facility] [address] [place] [phone] 06/07/2023 Kayode Paz [facility] [address] [place] [address] 12/03/2022 Kayode Paz Gastroesophageal ref lux disease, unspecified whether esophagitis present K21.9 and Screening for colon cancer Z12.11 ASSESSMENTS Encounter Date Diagnosis Assessment Notes Treatment Notes Treatment Clinical Notes 12/03/2022 Gastroesophageal ref lux disease, unspecified whether esophagitis present (ICD-10 - K21.9) 12/03/2022 Screening for colon cancer (ICD-10 - Z12.11) Stop the Iron(Ferrous sulfate) for 1 week before the procedures. PLAN OF TREATMENT Future Test Test Name Order Date UPPER GI ENDOSCOPY 12/03/2022 COLONOSCOPY 12/03/2022 Next Appt Details Provider Name:Kayode Paz , 06/07/2023 07:30:00 AM, [address] [place] [address] , [place], [place], [phone], Insurance Providers Payer Name Payer Address Payer Phone Subscriber Number Group Number Insured Name Patient Relationship to Insured Coverage Start Date Coverage End Date [facility] [address] [place] [phone] [id number] CANO YEISON Self - patient is the insured MEDICAL (GENERAL) HISTORY Medical History History ICD Code Denies CO,DM,CVA,Lung disease,renal dise ase Hypertension Hypercholesterolemia GERD Anemia due to her menses-sees Dr. Moses and Dr. Wagner Surgical History Surgery Date(Month/Year)
--- OUTSIDE RECORDS SUMMARY | 2023-06-07 06:37 | XMS_ITS | Continuity of Care Document ---
Author Name Unknown Organization [facility] Address [address] [place] [id number]- Care Team Providers Care Tax Examining Technician Name Role Phone Ayana Sargent MD Primary Care Physician [phone] Encounter [facility] Date(s): 06/24/22 - 07/24/22 [facility] Oncology [address] [place] [id number] Attending Physician: Harshad Sullivan Admitting Physician: Harshad Sullivan Referring Physician: AdmtrHarshad Allergies, Adverse Reactions, Alerts No Known Medication Allergies Medications acetaminophen-oxyCODONE 325 mg-5 mg oral tablet 1, tablet, By Mouth, Every 6 hours, PRN, # 7 tablet, Refills 0, Tot. Refills 0, Maintenance, Pain ,Severe, 04/23/22 19:28:00 EDT, Route to Pharmacy Electronically, [facility]/pharmacy #[id number] Tablet, Partialfill upon patient request if the prescription is fo... Start Date: 04/23/22 Status: Ordered Amlodipine By Mouth, Daily, 0 Refills, Maintenance, 04/23/22 12:26:00 EDT, Partial fill upon patient request if the prescription is for a schedule II opioid drug. Start Date: 04/23/22 Status: Ordered famotidine 20 mg oral tablet 20 mg, 1, tablet, By Mouth, Daily, as needed, Refills 0, Maintenance, 06/24/22 8:40:00 EDT, Partialfill upon patient request if the prescription is for a schedule II opioid drug. Start Date: 06/24/22 Status: Ordered ibuprofen 400 mg oral tablet 400 mg, 1, tablet, By Mouth, Every 6 hours, PRN, # 12 tablet, Refills 0, Tot. Refills 0, Maintenance, Pain , Moderate, 04/23/22 19:28:00 EDT, Route to Pharmacy Electronically, [facility]/pharmacy #[id number], Partial fill upon patient request if the prescription i... Start Date: 04/23/22 Status: Ordered loratadine 10 mg oral tablet 10 mg, 1, tablet, By Mouth, Daily, # 90 tablet, Refills 0, Maintenance, 06/24/22 8:38:00 EDT, Partial fill upon patient request if the prescription is for a schedule II opioid drug. Start Date: 06/24/22 Status: Ordered Progesterone See Instructions, 10mg x 10 days, 0 Refills, Maintenance, 06/24/22 8:43:00 EDT, Partial fill upon patient request if the prescription is for a schedule II opioid drug. Start Date: 06/24/22 Status: Ordered Problem List Condition Confirmation Course Effective Dates Status Health Status Informant Anemia Confirmed Active Asthma Confirmed Active Endometrial hyperplasia Confirmed Active Hypercholesterolemia Confirmed Active Pure hyperglyceridemia Confirmed Active Vitamin D deficiency Confirmed Active Social History Social History Type Response Smoking Status Never (less than 100 in lifetime) entered on: 06/24/22 Sex Note * Event Display: Ultrasound Pelvis, Non-BH Authored Date: * Event Display: Ultrasound Pelvis, Non-BH Authored Date: * Event Display: Non BH Lab Results Authored Date: * Event Display: Non BH Lab Results Authored Date: * Event Display: MRI Pelvis, Non- BH Authored Date: * Event Display: MRI Pelvis, Non- BH Authored Date: * Event Display: MRI Pelvis, Non- BH Authored Date: * Event Display: Laboratory Result Scanned Authored Date: * Event Display: Ultrasound Pelvis, Non-BH Authored Date: * Event Display: Ultrasound Pelvis, Non-BH Authored Date: US Pelvis * Event Display: Ultrasound Pelvis Authored Date: Patient Care team information Care Team Related Persons Name: BENEDICT CANO Address: home [address] [place] [address]
--- OUTSIDE RECORDS SUMMARY | 2023-06-07 06:37 | XMS_ITS | Continuity of Care Document ---
Author Name Unknown Organization [facility] Address [address] [place] [address]- Care Team Providers Care Sales Apprentice Name Role Phone Ayana Sargent MD Primary Care Physician [phone] Encounter [facility] Date(s): 05/06/22 - 06/05/22 [facility] [address] [place] [id number] Allergies, Adverse Reactions, Alerts No Known Medication Allergies Medications acetaminophen-oxyCODONE 325 mg-5 mg oral tablet 1, tablet, By Mouth, Every 6 hours, PRN, # 7 tablet, Refills 0, Tot. Refills 0, Maintenance, Pain ,Severe, 04/23/22 19:28:00 EDT, Route to Pharmacy Electronically, [facility]/pharmacy #[id number] Tablet, Partialfill upon patient request if the prescription is fo... Start Date: 04/23/22 Status: Ordered Amlodipine By Mouth, Daily, 0 Refills, Maintenance, 04/23/22 12:26:00 EDT, Partial fill upon patient request if the prescription is for a schedule II opioid drug. Start Date: 04/23/22 Status: Ordered ibuprofen 400 mg oral tablet 400 mg, 1, tablet, By Mouth, Every 6 hours, PRN, # 12 tablet, Refills 0, Tot. Refills 0, Maintenance, Pain , Moderate, 04/23/22 19:28:00 EDT, Route to Pharmacy Electronically, [facility]/pharmacy #[id number], Partial fill upon patient request if the prescription i... Start Date: 04/23/22 Status: Ordered Care Team Personnel Name: Ayana Sargent MD Address: [address] [place] [id number]
--- OUTSIDE RECORDS SUMMARY | 2023-06-07 06:37 | XMS_ITS | Continuity of Care Document ---
Author Name Unknown Organization [facility] Address [address] [place] [address]- Care Team Providers Care Occupational Therapy Program Director Name Role Phone Ayana Sargent MD Primary Care Physician [phone] Encounter [facility] Date(s): 05/06/22 - 06/24/22 [facility] [address] [place] [id number] Attending Physician: Rosalinda Villasenor MD Admitting Physician: Rosalinda Villasenor MD Referring Physician: Juan Jose Wagner MD Allergies, Adverse Reactions, Alerts No Known Medication Allergies Medications acetaminophen-oxyCODONE 325 mg-5 mg oral tablet 1, tablet, By Mouth, Every 6 hours, PRN, # 7 tablet, Refills 0, Tot. Refills 0, Maintenance, Pain ,Severe, 04/23/22 19:28:00 EDT, Route to Pharmacy Electronically, [facility]/pharmacy #[id number] Tablet, Partialfill upon patient request if the [...] 04/23/22 19:28:00 EDT, Route to Pharmacy Electronically, [facility]/pharmacy #[id number], Partial fill upon patient request if the [...] 100 in lifetime) entered on: 06/24/22 Sex Patient Care team information Personnel Name: Ayana Sargent MD Address: Address: [address] [place] [id number]
[2023-06-07 07:05] VITALS: BP 134/87; PULSE 85; RESP 16; TEMP 36.8; O2SAT 97; BMI 26.4
[2023-06-07 07:13] LABS: UPreg QC Valid YES; Urine Pregnancy NEGATIVE (NEGATIVE)
[2023-06-07 08:31] VITALS: BP 125/78; PULSE 98; RESP 16; TEMP 36.3; O2SAT 99
--- NOTE | 2023-06-07 08:35 | P.BOP_ITS ---
Brief Operative Note Date of Service: 06/07/23 Pre-op diagnosis: GERD, Screening Post-op diagnosis: other (Small hiatal hernia, Internal hemorrhoids) Procedure: EGD with biopsies, Colonoscopy to the cecum Surgeon: Kayode Paz Anesthesia: MAC Was an Doper Operator used for this Procedure?: No Estimated blood loss (mL): 2.0 Pathology: other (A. EG Junction at 35cm) Condition: stable Disposition: PACU
[2023-06-07 08:46] VITALS: BP 137/71; PULSE 70; RESP 16; TEMP 36.3; O2SAT 99
[2023-06-07 08:59] VITALS: BP 137/84; PULSE 71; RESP 16; TEMP 36.3; O2SAT 98
--- NOTE | 2023-06-07 09:16 | OP_ITS ---
DATE OF SERVICE: 06/07/2023 SURGEON: Kayode Paz MD INDICATIONS: The patient presents for evaluation of gastroesophageal reflux and colorectal cancer screening. Full consent has been obtained from her for this, including risks of bleeding and perforation. PREOPERATIVE DIAGNOSIS: POSTOPERATIVE DIAGNOSIS: PROCEDURE PERFORMED: ESTIMATED BLOOD LOSS: COMPLICATIONS: ANESTHESIA: Monitored anesthesia care. ASSISTANTS: SPECIMENS: PREOPERATIVE DIAGNOSES: 1. Gastroesophageal reflux. 2. Colorectal cancer screening. POSTOPERATIVE DIAGNOSES: 1. Gastroesophageal reflux. 2. Colorectal cancer screening. 3. Small hiatal hernia. 4. Internal hemorrhoids. PROCEDURES PERFORMED: 1. Esophagogastroduodenoscopy with biopsies. 2. Colonoscopy to the cecum. DESCRIPTION OF PROCEDURE: Patient was placed in the left lateral decubitus position. The Olympus video gastroscope was passed in the posterior oropharynx and upper esophagus under direct vision. The scope was passed slowly into the distal esophagus. The gastroesophageal junction appeared at 35 cm. There was some minimal irregularity consistent with reflux, but no esophagitis nor definitive Sanders mucosa. The scope entered the stomach. There was a small hiatal hernia. The scope was advanced to the pylorus and the duodenum was cannulated to the descending portion. The duodenum including the bulb appeared normal without mass or ulceration. The scope was withdrawn back to the stomach. The gastric antrum and body appeared normal with good peristalsis. The scope was retroflexed visualizing the proximal stomach carefully, which appeared normal, without any sign of mass or ulceration. Scope was straightened and withdrawn back in the esophagus. Biopsies were obtained the EG junction at 35 cm. Proximal to this, the esophageal mucosa appeared normal. The scope was withdrawn from the patient. She was turned around for the colonoscopy. The digital rectal exam revealed no abnormalities. The Olympus video pediatric colonoscope was entered into the rectum and advanced easily to the cecum. Once in the cecum, I did identify normal-appearing cecal pouch with appendiceal orifice and a normal-appearing ileocecal valve. The entire cecum and ileocecal valve appeared normal. There was transillumination of light deep in the right lower quadrant. The scope was slowly withdrawn assessing all mucosal surfaces carefully. Preparation was excellent. I did not visualize any sign of polyps, colitis, nor angiodysplasia. In the rectum, scope was retroflexed, visualizing small internal hemorrhoids, but no other pathology. The rectal mucosa appeared normal. The scope was straightened and withdrawn the patient. She tolerated both procedures well and was returned to the recovery area in stable condition. IMPRESSION: 1. Small hiatal hernia, gastroesophageal reflux. 2. Internal hemorrhoids. PLAN: The results of the biopsies will be checked. I would recommend a repeat colonoscopy in 10 years for further screening. She currently reports she is using famotidine twice a day and is doing well with that without any significant heartburn or reflux symptoms. She will see me on a p.r.n. basis. MD STEPHEN Ortiz/LONG / [id number]
== END 2023-06-07 09:29 | disposition home or self-care (01) ==
PROVIDERS: Nurse Practitioner; PCP Internal Medicine; Visit Provider Internal Medicine
PROC: (CPT 45378; principal; 2023-06-07 07:30)
DX: Z12.11 Encounter for screening for malignant neoplasm of colon (principal); K64.8 Other hemorrhoids; K21.9 Gastro-esophageal reflux disease without esophagitis; K44.9 Diaphragmatic hernia without obstruction or gangrene; R23.4 Changes in skin texture; I10 Essential (primary) hypertension; E78.00 Pure hypercholesterolemia, unspecified; Z79.899 Other long term (current) drug therapy
CPT/HCPCS: 45378; 43239; 81025; 88305

== ENCOUNTER 2023-06-15 16:12 | Outpatient (AMB) | payer OTHER, SELFPAY ==
[2023-06-15 16:16] VITALS: BP 126/84; BMI 27.0
--- NOTE | 2023-06-15 16:16 | MHC.PC.OV ---
Vital Signs 06/15/23 16:16 Height 4 ft 9 in Weight 125 lb BMI 27.0 BP 126/84 Blood Pressure Location Lt brachial Position Sitting Intake Visit Reasons: 4M follow up Intake Note: Patient here for a 4 month follow up Stainless Steel Finisher Required: No Accompanied by: Self / Same As Patient Allergies pravastatin Adverse Reaction (Unknown, Verified 06/15/23 16:52) myalgias Medication List - Last Reconciled 06/15/23 by Shanta Garcia MD amlodipine 5 mg PO DAILY 90 days ascorbic acid (vitamin C) (Vitamin C) 500 mg PO BID famotidine 20 mg PO DAILY ferrous sulfate (Iron (ferrous sulfate)) 325 mg PO BID loratadine 10 mg PO DAILY medroxyprogesterone (Provera) 10 mg PO DAILY 10 days multivitamin 1 tab PO DAILY Tobacco use date assessed: 01/28/23 Dental Screening Dental Screen Date: 06/15/23 Did you have a dental visit in the last 12 months?: Yes Did you have a dental problem in the last 6 months where you did not have access to dental care?: No Was dental information given to patient?: Patient has dentist HPI HPI Comments History of Present Illness Details This is a 43-year-old female with hypertension and GERD that comes today for follow-up on her conditions. Blood pressure stable. GERD stable with medications. He has T spot borderline and chest x-ray will be order. Denies any night sweats, fever or cough. Does not recall being exposed to tuberculosis. [facility] Medical History (Updated 06/16/23 @ 07:53 by Shanta Garcia MD) HTN (hypertension) GERD (gastroesophageal reflux disease) Endometrial hyperplasia Hypercholesterolemia Rash due to allergy History of anemia Pure hyperglyceridemia Vitamin D insufficiency Asthma Surgical History No pertinent past surgical history Family History Paternal Uncle Myocardial infarct Bipolar 1 disorder Mental health disorder Paternal Grandfather Stomach cancer Maternal Grandfather Lung cancer Mother Pancreatic cancer Father Essential hypertension Social History Household Members: Family Housing: Apartment Alcohol intake: current Alcohol intake frequency: holidays/special occasions only Patient Tobacco Use Status: Never used Tobacco e-Cigarette/Vaping Use: Never Used Second Hand Smoke Exposure: No service: No Current occupational status: employed Current occupational exposures/hazards: No Sexual orientation: Straight/Heterosexual Gender identity: Female Cognitive needs: No Hearing needs: No Vision needs: Yes (glasses) Female Reproductive History Menstrual Age of Menarche: 9 Questionnaire Thrive Questionnaire Date Thrive assessed: 01/28/23 SHAYY-7 AMB Questionnaire SHAYY-7 Date SHAYY - 7 assessed: 01/28/23 Source: Developed by Drs. Kayode Waite, Glo Schwab, Demarcus Yi and colleagues, with an educational renee from [employer]. Review of Systems Const All systems reviewed & are unremarkable except as noted in HPI and below Eyes Reports no additional complaints, Denies change in vision and Denies other visual disturbances Card Denies chest pain at rest, Denies chest pain with activity, Denies edema, Denies irregular heart rhythm, Denies claudication, Denies dyspnea, Denies dyspnea on exertion, Denies orthopnea, Denies paroxysmal nocturnal dyspnea and Denies slow heart rate Resp Denies cough, Denies dyspnea and Denies dyspnea on exertion GI Denies abdominal pain, Denies change in bowel habits, Denies excessive flatus, Denies nausea and Denies vomiting Denies urinary incontinence, Denies urinary hesitancy and Denies urinary urgency Musc Denies abnormal gait, Denies atrophy, Denies deformity and Denies limited range of motion Skin/Breast Denies bleeding lesions, Denies changing lesions and Denies rash Neuro Denies abnormal gait and Denies lack of coordination Physical exam (Primary Care) Vital Signs: Last Vital Signs BP 126/84 06/15/23 16:16 BMI result Body Mass Index 27.0 Tobacco/Smoking Status: Tobacco use Status Tobacco use date assessed 01/28/23 06/15/23 16:20 Patient Tobacco Use Status Never used Tobacco 06/15/23 16:20 e-Cigarette/Vaping Use Never Used 06/15/23 16:20 Thrive Assessment: Date of Thrive Assessment Date Thrive assessed 01/28/23 06/15/23 16:20 Eyes General: appearance normal, both eyes and all related structures Eyelids: Yes eyelids normal Conjunctivae: conjunctivae normal Neck Neck: Yes normal visual inspection and Yes supple Resp Effort & Inspection: normal respiratory effort Auscultation: clear to auscultation bilaterally Cardio Jugular venous distension: no JVD Rate: regular rate Rhythm: regular rhythm Heart sounds: S1 normal heart sound present and S2 normal heart sound present Extrem General: Yes full ROM Office Procedures Flu Questionnaire Does the patient have a severe egg allergy?: No Immunizations flu vacc [id number] 6mos up(PF) 60 mcg(15 mcgx4)/0.5 mL IM syringe Performing Provider: Shanta Garcia MD [facility] Documented (not given) by: SANTOS Baez on 06/15/23 16:22 Reason Not Given: Patient Refused Assessment and Plan Assessment & Plan (1) Hypertension: Code(s): I10 - Essential (primary) hypertension Plan: Continue amlodipine. Blood pressure goal is equal or less than 130/80. (2) GERD (gastroesophageal reflux disease): Code(s): K21.9 - Gastro-esophageal reflux disease without esophagitis Plan: Continue PPIs. 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 Orders: Orders Influenza [id number] Immunization 06/15/23 Z23 - Encounter for immunization NE nerve conduction velocity 06/15/23 R20.2 - Paresthesia of skin XR chest 2V 06/15/23 Z22.7 - Latent tuberculosis Medications: Discontinued ferrous sulfate (Iron (ferrous sulfate)) Discontinued Reason: No Longer Medically Relevant 325 mg PO BID 60 tabs 2RF Coding Level of Care Code Est Pt Level 3 (95477) Diagnoses Hypertension I10 GERD (gastroesophageal reflux disease) K21.9 Latent tuberculosis Z22.7 Time Spent (min) 19
== END 2023-06-15 17:03 | disposition home or self-care (01) ==
PROVIDERS: PCP Internal Medicine; Visit Provider Internal Medicine
DX: I10 Essential (primary) hypertension (principal); K21.9 Gastro-esophageal reflux disease without esophagitis; Z22.7 Latent tuberculosis
CPT/HCPCS: 99213

== ENCOUNTER 2023-06-19 08:59 | Outpatient (REF) | payer OTHER, SELFPAY ==
--- NOTE | ~2023-06-19 | XR_ITS ---
EXAMINATION: XR CHEST 2 VIEWS CLINICAL INFORMATION: Latent tuberculosis. COMPARISON: None. TECHNIQUE: Frontal and lateral views of the chest were obtained. FINDINGS: The heart, great vessels, pulmonary vasculature and mediastinum are normal. The lungs show no focal infiltrate, effusion or pneumothorax. No mass, nodule or thoracic lymphadenopathy is noted. There is no acute osseous abnormality. XR/XR chest 2V IMPRESSION: No active cardiopulmonary disease.
== END 2023-06-19 09:00 | disposition home or self-care (01) ==
LOC: HO.XRAY 08:59
PROVIDERS: PCP Internal Medicine; Visit Provider Internal Medicine
DX: Z22.7 Latent tuberculosis (principal)
CPT/HCPCS: 71046

== ENCOUNTER 2023-07-22 09:57 | Outpatient (REF) | payer OTHER, SELFPAY ==
--- NOTE | 2023-07-22 10:00 | EMG_ITS ---
Bilateral median and ulnar motor and sensory studies were performed. Bilateral radial sensory studies were performed. Bilateral median and lateral antecubital brachial sensory studies were performed and paraspinal muscles were tested with a needle. IMPRESSION: 1. [id number] bilateral median neuropathy across carpal tunnel. 2. Mild bilateral ulnar neuropathy across cubital tunnel. MD THERESA Wagner/LONG / [id number]
== END 2023-07-22 09:58 | disposition home or self-care (01) ==
LOC: HO.NEURO 09:57
PROVIDERS: PCP Internal Medicine; Visit Provider Internal Medicine
DX: R20.2 Paresthesia of skin (principal)
CPT/HCPCS: 95886; 95913

== ENCOUNTER 2023-09-21 09:09 | Outpatient (AMB) | payer OTHER, SELFPAY ==
--- NOTE | 2023-09-21 09:11 | MHC.OFFVIS ---
Intake Intake Visit Reasons: New Pt - B/L hand pain Intake Note: Markel is a 43 year old right hand dominant female who presents today as a new patient for a evaluation of her bilateral hand pain, EMG was done at [facility] on 07/22/23. Patient reports her symptoms started about a year ago. She states that her right hand is worse than the left hand. SHe states that her off and on numbness is on the left pointer finger and in her right middle finger. Allergies pravastatin Adverse Reaction (Unknown, Verified 09/21/23 09:13) myalgias HPI New Pt - B/L hand pain HPI Details 43-year-old right hand dominant female who presents in the office today, as a new patient, for an evaluation of bilateral hand pain. The patient had an EMG performed on 07/22/2023. She states her symptoms began around a year ago. She states her right hand is worse then her left hand. She reports numbness and tingling in the bilateral index and middle digits. She states when she is writing and typing she has to stop due to numbness. [facility] Medical History (Updated 09/21/23 @ 09:31 by Renetta Wright) HTN (hypertension) GERD (gastroesophageal reflux disease) Endometrial hyperplasia Hypercholesterolemia Rash due to allergy History of anemia Pure hyperglyceridemia Vitamin D insufficiency Asthma Surgical History No pertinent past surgical history Family History Paternal Uncle Myocardial infarct Bipolar 1 disorder Mental health disorder Paternal Grandfather Stomach cancer Maternal Grandfather Lung cancer Mother Pancreatic cancer Father Essential hypertension Social History Household Members: Family Housing: Apartment Alcohol intake: current Alcohol intake frequency: holidays/special occasions only Patient Tobacco Use Status: Never used Tobacco e-Cigarette/Vaping Use: Never Used Second Hand Smoke Exposure: No service: No Current occupational status: employed Current occupational exposures/hazards: No Sexual orientation: Straight/Heterosexual Gender identity: Female Cognitive needs: No Hearing needs: No Vision needs: Yes (glasses) Female Reproductive History Menstrual Age of Menarche: 9 Review of Systems Const All systems reviewed & are unremarkable except as noted in HPI and below Physical Exam Const General: cooperative and no acute distress Orientation/consciousness: patient oriented x3 Resp Effort & Inspection: normal respiratory effort and able to speak in complete sentences Cardio Peripheral pulses: Peripheral pulses 2+ throughout Skin General skin exam: no rashes or lesions noted Neuro General: patient oriented x3 Extrem Other: Bilateral hands: Normal to inspection. No ecchymosis, erythema, or edema. Able to perform full finger flexion, extension, abduction, adduction, finger cross, okay sign, and thumbs up without deficit. Able to make a closed fist. Numbness and tingling reported intermittently in the index and middle fingers bilaterally. Positive Tinel?s. Capillary refill is brisk. Radial pulse intact. Assessment & Plan Assessment & Plan (1) Right carpal tunnel syndrome: Code(s): G56.01 - Carpal tunnel syndrome, right upper limb (2) Left carpal tunnel syndrome: Code(s): G56.02 - Carpal tunnel syndrome, left upper limb Plan Ms. Garcia is a 43-year-old right hand dominant female who presents in the office today, as a new patient, for an evaluation of bilateral hand pain. The patient had an EMG performed on 07/22/2023. She states her symptoms began around a year ago. She states her right hand is worse then her left hand. She reports numbness and tingling in the bilateral index and middle digits. She states when she is writing and typing she has to stop due to numbness. We discussed surgical intervention of a carpal tunnel release. We would start with the right hand due to this being the most problematic. She would like to think about possible intervention. She was provided with my card while in the office today and will call the office should she wish to move forward. Follow up will be PRN, or sooner if needed. EMG of the bilateral hands, obtained on 07/22/2023, revealed: 1. [id number] bilateral median neuropathy across carpal tunnel. 2. Mild bilateral ulnar neuropathy across cubital tunnel. Patient Instructions: Scribed for Delmy Macdonald PA-C by Renetta Wright medical insurance collector, on 09/21/2023 at 9:20 am, EST. Coding Level of Care Code New Pt Level 4 (35878) Diagnoses Right carpal tunnel syndrome G56.01 Left carpal tunnel syndrome G56.02
== END 2023-09-21 09:54 | disposition home or self-care (01) ==
PROVIDERS: PCP Internal Medicine; Visit Provider Physician Assistant
DX: G56.03 Carpal tunnel syndrome, bilateral upper limbs (principal)
CPT/HCPCS: 99203

== ENCOUNTER → 2023-09-21 09:09 | Outpatient (BNVA) | payer OTHER, SELFPAY | PROVIDERS: PCP Internal Medicine; Visit Provider Physician Assistant ==

== ENCOUNTER 2023-12-16 09:06 | Outpatient (REF) | payer OTHER, SELFPAY | END 2023-12-16 09:07 | disposition home or self-care (01) | LOC: HO.MAMMO 09:06 | PROVIDERS: PCP Internal Medicine; Visit Provider Internal Medicine | DX: Z12.31 Encounter for screening mammogram for malignant neoplasm of breast (principal) | CPT/HCPCS: 77063; 77067 ==

== ENCOUNTER → 2023-12-16 09:15 | Outpatient (BNV) | payer OTHER, SELFPAY | PROVIDERS: PCP Internal Medicine; Visit Provider Radiology Diagnostic Radiology | DX: Z12.31 Encounter for screening mammogram for malignant neoplasm of breast (principal) | CPT/HCPCS: 77063; 77067 ==

== ENCOUNTER 2024-01-13 12:48 | Outpatient (AMB) | payer OTHER, SELFPAY ==
[2024-01-13 13:09] VITALS: BP 130/80; BMI 27.0
--- NOTE | 2024-01-13 13:09 | A.OFFPC_ITS ---
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 Accompanied by: Self / Same As Patient Allergies pravastatin Adverse Reaction (Unknown, Verified 01/13/24 13:16) myalgias Medication List - Last Reconciled 01/13/24 by Shanta Garcia MD amlodipine 5 mg PO DAILY 90 days famotidine 20 mg PO DAILY loratadine 10 mg PO DAILY medroxyprogesterone (Provera) 10 mg PO DAILY 10 days multivitamin 1 tab PO DAILY Ventolin HFA 90 mcg/actuation (albuterol sulfate) 2 puffs inhalation Q4-6H PRN 30 days NS Tobacco use date assessed: 01/13/24 Dental Screening Dental Screen Date: 01/13/24 Did you have a dental visit in the last 12 months?: Yes Did you have a dental problem in the last 6 months where you did not have access to dental care?: No Was dental information given to patient?: Patient has dentist HPI HPI Comments History of Present Illness Details This is a 43-year-old female with hypertension GERD comes today complaining of left side rib pain that started few months ago when she hurt the area with a table. The pain went away but restarted 4-5 days ago. It is tender to palpation. No rash. No chest pain or shortness of breath. No cough. Blood pressure stable. GERD well control with medication. She also complains of chronic fatigue that has been present for over a month. Has latent tuberculosis and went to [facility] which said that the levels are so low that she does not require treatment. [facility] Medical History (Updated 01/13/24 @ 13:29 by Shanta Garcia MD) HTN (hypertension) GERD (gastroesophageal reflux disease) Endometrial hyperplasia Hypercholesterolemia Rash due to allergy History of anemia Pure hyperglyceridemia Vitamin D insufficiency Asthma Surgical History No pertinent past surgical history Family History Paternal Uncle Myocardial infarct Bipolar 1 disorder Mental health disorder Paternal Grandfather Stomach cancer Maternal Grandfather Lung cancer Mother Pancreatic cancer Father Essential hypertension Social History Household Members: Family Housing: Apartment Alcohol intake: current Alcohol intake frequency: holidays/special occasions only Patient Tobacco Use Status: Never used Tobacco e-Cigarette/Vaping Use: Never Used Second Hand Smoke Exposure: No service: No Current occupational status: employed Current occupational exposures/hazards: No Sexual orientation: Straight/Heterosexual Gender identity: Female Cognitive needs: No Hearing needs: No Vision needs: Yes (glasses) Female Reproductive History Menstrual Age of Menarche: 9 Questionnaire PHQ-9 Over the last 2 weeks, how often have you been bothered by any of the following problems? 1. Little interest or pleasure in doing things: not at all 2. Feeling down, depressed, or hopeless: not at all 3. Trouble falling or staying asleep, or sleeping too much: not at all 4. Feeling tired or having little energy: more than half the days 5. Poor appetite or overeating: not at all 6. Feeling bad about yourself - or that you are a failure or have let yourself or your family down: not at all 7. Trouble concentrating on things, such as reading the newspaper or watching television: not at all 8. Moving or speaking so slowly that other people could have noticed. Or the opposite - being so fidgety or restless that you have been moving around a lot more than usual: not at all 9. Thoughts that you would be better off or of hurting yourself in some way: not at all Total score: 2 Depression Screening Interpretation: Negative Depression Screening Done: Yes 12035 - PHQ-9 Billing: Yes Source: Developed by Drs. Kayode Waite, Glo Schwab, Demarcus Yi and colleagues, with an educational renee from [employer]. Thrive Questionnaire Date Thrive assessed: 01/13/24 I am a: Patient What is your living situation today?: I have a steady place to live Within the past 12 months, did the food you bought not last and you didn't have the money to get more?: Never true Within the past 12 months, did you worry whether your food would run out before you got money to buy more?: Never true Do you have trouble paying for medicines?: No Do you have trouble getting transportation to medical appointments?: No Do you have trouble paying your heating and electricity bill?: No Do you have trouble taking care of your child, family member or friend?: No Do you have trouble with day-to-day activities such as bathing, preparing meals, shopping, managing finances, etc.?: No Are you currently unemployed and looking for a job?: No Are you interested in more education?: No Please select the resources that you would like help with: None Currently or been in a relationship where the following occur: no concerns reported THRIVE Score: 0 AUDIT C Alcohol Use Questionnaire (AUDIT-C) 1. How often do you have a drink containing alcohol?: Monthly or less 2. How many drinks containing alcohol do you have on a typical day when you are drinking?: 1 or 2 3. How often do you have six or more drinks on one occasion?: Never Total Score: 1 Score Reviewed/Action Taken: No SHAYY-7 AMB Questionnaire SHAYY-7 Date SHAYY - 7 assessed: 01/13/24 Feeling nervous, anxious, or on edge: 0 = Not at all Not being able to stop or control worryin = Not at all Worrying too much about different things: 0 = Not at all Trouble relaxin = Not at all Being so restless that it is hard to sit still: 0 = Not at all Becoming easily annoyed or irritable: 0 = Not at all Feeling afraid as if something awful might happen: 0 = Not at all Total SHAYY-7 score (0-4 normal; 5-9 mild; 10-14 moderate; 15-21 severe): 0 Source: Developed by Drs. Kayode Waite, Glo Schwab, Demarcus Yi and colleagues, with an educational renee from [employer]. SHAYY-7 Assessment Billing SHAYY-7 Assessment Tool: SHAYY-7 Assessment 96183 Review of Systems Const All systems reviewed & are unremarkable except as noted in HPI and below Eyes Reports no additional complaints, Denies change in vision and Denies other visual disturbances Card Denies chest pain at rest, Denies chest pain with activity, Denies edema, Denies irregular heart rhythm, Denies claudication, Denies dyspnea, Denies dyspnea on exertion, Denies orthopnea, Denies paroxysmal nocturnal dyspnea and Denies slow heart rate Resp Denies cough, Denies dyspnea and Denies dyspnea on exertion GI Denies abdominal pain, Denies change in bowel habits, Denies excessive flatus, Denies nausea and Denies vomiting Denies urinary incontinence, Denies urinary hesitancy and Denies urinary urgency Physical exam (Primary Care) Vital Signs: Last Vital Signs BP 130/80 01/13/24 13:09 BMI result Body Mass Index 27.0 Tobacco/Smoking Status: Tobacco use Status Tobacco use date assessed 01/13/24 01/13/24 13:13 Patient Tobacco Use Status Never used Tobacco 01/13/24 13:13 e-Cigarette/Vaping Use Never Used 01/13/24 13:13 PHQ-9: PHQ-9 Score PHQ-9: Total score 2 01/13/24 13:13 Depression Screening Interpretation: Negative Thrive Assessment: Date of Thrive Assessment Date Thrive assessed 01/13/24 01/13/24 13:13 Currently or been in a relationship where the following occur: no concerns reported Chest Chest palpation & inspection: abnormal inspection of the chest swelling and lo calized rib tenderness with anteroposterior compression Resp Effort & Inspection: normal respiratory effort Auscultation: clear to auscultation bilaterally Cardio Jugular venous distension: no JVD Rate: regular rate Rhythm: regular rhythm Heart sounds: S1 normal heart sound present and S2 normal heart sound present Extrem General: Yes full ROM Assessment and Plan Assessment & Plan (1) Rib pain: Code(s): R07.81 - Pleurodynia Plan: X-ray ordered. (2) Fatigue: Code(s): R53.83 - Other fatigue Plan: Labs ordered. (3) GERD (gastroesophageal reflux disease): Code(s): K21.9 - Gastro-esophageal reflux disease without esophagitis Plan: Continue famotidine. (4) Hypertension: Code(s): I10 - Essential (primary) hypertension Plan: Continue amlodipine. Blood pressure goal is equal or less than 130/80. Orders: Orders XR chest 2V Today R07.81 - Pleurodynia IRON PROFILE Today D64.9 - Anemia, unspecified Lipid Panel Today E78.5 - Hyperlipidemia, unspecified XR ribs LT 2V Today R07.81 - Pleurodynia Complete Blood Count Auto Diff Today D64.9 - Anemia, unspecified Vitamin B12 and Folate Today E53.8 - Deficiency of other specified B group vitamins Comprehensive [place]. Panel Fast Today E78.5 - Hyperlipidemia, unspecified Thyroid Stimulating Hormone Today R53.83 - Other fatigue Medications: Refilled Ventolin HFA 90 mcg/actuation (albuterol sulfate) 2 puffs inhalation Q4-6H 30 days PRN 18 grams 3RF shortness of breath or wheezing NS J45.909 - Unspecified asthma, uncomplicated Coding Level of Care Code Est Pt Level 4 (62489) Diagnoses Rib pain R07.81 Fatigue R53.83 GERD (gastroesophageal reflux disease) K21.9 Hypertension I10 Additional Codes SHAYY-7 Assessment Billing - SHAYY-7 Assessment Tool: SHAYY-7 Assessment 23308 ([id number]) Time Spent (min) 20
== END 2024-01-13 13:27 | disposition home or self-care (01) ==
PROVIDERS: PCP Internal Medicine; Visit Provider Internal Medicine
DX: R07.81 Pleurodynia (principal); R53.83 Other fatigue; K21.9 Gastro-esophageal reflux disease without esophagitis; I10 Essential (primary) hypertension
CPT/HCPCS: 99214

== ENCOUNTER 2024-01-14 09:18 | Outpatient (REF) | payer OTHER, SELFPAY ==
--- NOTE | ~2024-01-14 | XR_ITS ---
EXAMINATION: XR RIBS, LEFT CLINICAL INFORMATION: Pain COMPARISON: None available. TECHNIQUE: 3 views of the left ribs were obtained. FINDINGS: Lungs are clear. No consolidation, pneumothorax, or pleural effusion. The cardiomediastinal silhouette and pulmonary vasculature are normal. Osseous structures are unremarkable. Ribs are intact. No fractures are identified. XR/XR ribs LT 2V IMPRESSION: Unremarkable examination.
--- NOTE | ~2024-01-14 | XR_ITS ---
EXAMINATION: XR chest 2V CLINICAL INFORMATION: Reason for Exam R07.81 - Pleurodynia COMPARISON: 06/19/2023 TECHNIQUE: 2 views of the chest FINDINGS: Clear lungs. No pneumothorax or pleural effusion. Normal cardiomediastinal silhouette. XR/XR chest 2V Impression: * Clear lungs.
== END 2024-01-14 09:19 | disposition home or self-care (01) ==
LOC: HO.XRAY 09:18
PROVIDERS: PCP Internal Medicine; Visit Provider Internal Medicine
DX: R07.81 Pleurodynia (principal)
CPT/HCPCS: 71046; 71100

== ENCOUNTER 2024-02-02 07:30 | Outpatient (AMB) | payer OTHER, SELFPAY ==
--- NOTE | 2024-02-02 07:38 | A.OFFPC_ITS ---
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: No Accompanied by: Self / Same As Patient Allergies pravastatin Adverse Reaction (Unknown, Verified 02/02/24 08:01) myalgias Medication List - Last Reconciled 02/02/24 by Shanta Garcia MD amlodipine 5 mg PO DAILY 90 days famotidine 20 mg PO DAILY loratadine 10 mg PO DAILY medroxyprogesterone (Provera) 10 mg PO DAILY 10 days multivitamin 1 tab PO DAILY Ventolin HFA 90 mcg/actuation (albuterol sulfate) 2 puffs inhalation Q4-6H PRN 30 days NS Tobacco use date assessed: 01/13/24 Dental Screening Dental Screen Date: 01/13/24 HPI HPI Comments History of Present Illness Details This is a 43-year-old female that comes for her physical exam. Last mammogram was December 2023. Last colonoscopy was 2022 and was normal and next colonoscopy should be in 10 years. Last Pap smear was 2021 with negative HPV. Denies any chest pain or shortness of breath. Complains of allergic rhinitis. [facility] Medical History (Updated 01/13/24 @ 13:29 by Shanta Garcia MD) HTN (hypertension) GERD (gastroesophageal reflux disease) Endometrial hyperplasia Hypercholesterolemia Rash due to allergy History of anemia Pure hyperglyceridemia Vitamin D insufficiency Asthma Surgical History No pertinent past surgical history Family History Paternal Uncle Myocardial infarct Bipolar 1 disorder Mental health disorder Paternal Grandfather Stomach cancer Maternal Grandfather Lung cancer Mother Pancreatic cancer Father Essential hypertension Social History Household Members: Family Housing: Apartment Alcohol intake: current Alcohol intake frequency: holidays/special occasions only Patient Tobacco Use Status: Never used Tobacco e-Cigarette/Vaping Use: Never Used Second Hand Smoke Exposure: No service: No Current occupational status: employed Current occupational exposures/hazards: No Sexual orientation: Straight/Heterosexual Gender identity: Female Cognitive needs: No Hearing needs: No Vision needs: Yes (glasses) Female Reproductive History Menstrual Age of Menarche: 9 Questionnaire Thrive Questionnaire Date Thrive assessed: 01/13/24 SHAYY-7 AMB Questionnaire SHAYY-7 Date SHAYY - 7 assessed: 01/13/24 Source: Developed by Drs. Kayode Waite, Glo Schwab, Demarcus Yi and colleagues, with an educational renee from [email or web address]. Review of Systems Const All systems reviewed & are unremarkable except as noted in HPI and below Eyes Reports no additional complaints, Denies change in vision and Denies other visual disturbances Card Denies chest pain at rest, Denies chest pain with activity, Denies edema, Denies irregular heart rhythm, Denies claudication, Denies dyspnea, Denies dyspnea on exertion, Denies orthopnea, Denies paroxysmal nocturnal dyspnea and Denies slow heart rate Resp Denies cough, Denies dyspnea and Denies dyspnea on exertion GI Denies abdominal pain, Denies change in bowel habits, Denies excessive flatus, Denies nausea and Denies vomiting Denies urinary incontinence, Denies urinary hesitancy and Denies urinary urgency Physical exam (Primary Care) Vital Signs: Last Vital Signs BP 126/80 02/02/24 07:39 BMI result Body Mass Index 27.3 Tobacco/Smoking Status: Tobacco use Status Tobacco use date assessed 01/13/24 02/02/24 07:45 Patient Tobacco Use Status Never used Tobacco 02/02/24 07:45 e-Cigarette/Vaping Use Never Used 02/02/24 07:45 Thrive Assessment: Date of Thrive Assessment Date Thrive assessed 01/13/24 02/02/24 07:45 Const Orientation/consciousness: patient oriented x3 HENMT Head: Yes normal to inspection, Yes normocephalic and Yes atraumatic Ears: external ears normal Eyes General: appearance normal, both eyes and all related structures Eyelids: Yes eyelids normal Conjunctivae: conjunctivae normal Neck Neck: Yes normal visual inspection and Yes supple Resp Effort & Inspection: normal respiratory effort Auscultation: clear to auscultation bilaterally Cardio Jugular venous distension: no JVD Rate: regular rate Rhythm: regular rhythm Heart sounds: S1 normal heart sound present and S2 normal heart sound present GI Inspection: Yes normal to inspection Palpation (GI): Soft to palpation and nontender Auscultation: normal bowel sounds Skin General skin exam: no rashes or lesions noted Neuro General: patient oriented x3 and no focal motor deficits Extrem General: Yes full ROM Psych Appearance: grossly normal Assessment and Plan Assessment & Plan (1) Physical exam: Comment: Hx of pap and biopsy in 09/2020. Last exam 2 years ago, due. Last dental exam 4 years ago, due. COVID IZ X 2. Declines flu for now. Pt missed her mammogram since she was in [place]. She will call to r/s. Pt missed her abdominal US for elevated LFT's. She will call to r/s. PPD today. Pt to get labs done, as well. Code(s): Z00.00 - Encounter for general adult medical examination without abnormal findings Plan: Repeat in a year. Orders: Orders Comprehensive [place]. Panel Fast Today Z00.00 - Encounter for general adult medical examination without abnormal findings Vitamin D 25-OH Total Today E55.9 - Vitamin D deficiency, unspecified Lipid Panel Today E78.5 - Hyperlipidemia, unspecified Complete Blood Count Auto Diff Today D64.9 - Anemia, unspecified IRON PROFILE Today D64.9 - Anemia, unspecified Medications: Changed From loratadine 10 mg PO DAILY 90 tabs 0RF To loratadine 10 mg PO DAILY 90 days 90 tabs 3RF Refilled Ventolin HFA 90 mcg/actuation (albuterol sulfate) 2 puffs inhalation Q4-6H 30 days PRN 18 grams 3RF shortness of breath or wheezing NS J45.909 - Unspecified asthma, uncomplicated Coding Level of Care Code Est Pt Prev Care 40-64y(47418) Diagnoses Physical exam Z00.00 Time Spent (min) 31
[2024-02-02 07:39] VITALS: BP 126/80; BMI 27.3
== END 2024-02-02 08:12 | disposition home or self-care (01) ==
PROVIDERS: Visit Provider Internal Medicine
DX: Z00.00 Encounter for general adult medical examination without abnormal findings (principal)
CPT/HCPCS: 99396

== ENCOUNTER 2024-02-08 08:14 | Outpatient (REF) | payer OTHER, SELFPAY ==
[2024-02-08 08:30] LABS: MANUAL DIFF FLAG NO
[2024-02-08 09:05] LABS: Basophils Absolute Auto 0.1 X10*3/uL (0.0-0.2); Basophils Percent Auto 1.5 % (0-2); Eosinophils Absolute Auto 0.5 X10*3/uL (0.0-0.4); Eosinophils Percent Auto 7.6 % (0-4); Hemoglobin 12.9 g/dl (12.0-16.0); Imm Gran Abs Auto 0.04 X10*3/uL (0.00-0.03); Imm Gran Pct Auto 0.6 % (0.0-0.4); Lymphocytes Absolute Auto 2.1 X10*3/uL (1.2-4.9); Lymphocytes Percent Auto 32.5 % (20-40); Mean Corpuscular HGB Conc 32.3 g/dl (31.0-35.0); Mean Corpuscular Hemoglobin 27.2 pg (27.0-33.0); Mean Corpuscular Volume 84.2 fL (80.0-98.0); Mean Platelet Volume 9.4 fL (9.4-12.3); Monocytes Absolute Auto 0.6 X10*3/uL (0.1-1.2); Monocytes Percent Auto 8.8 % (2-11); Neutrophils Absolute Auto 3.2 x10*3/uL (2.0-8.3); Platelet Count 445 X10*3/uL (160-400); Red Blood Count 4.75 X10*6/uL (4.20-5.50); Red Cell Distribution Width 14.6 % (11.0-16.0); White Blood Count 6.6 X10*3/uL (4.8-10.8)
[2024-02-08 09:43] LABS: Alanine Aminotransferase 27 U/L (0-31); Albumin Level 4.1 g/dL (3.5-5.0); Alkaline Phosphatase 94 U/L (39-117); Anion Gap 13 (12-20); Aspartate Amino Transferase 19 U/L (5-31); Bilirubin Total 0.2 mg/dL (0.0-1.0); Blood Urea Nitrogen 17 mg/dL (9-16); Carbon Dioxide 23 mmol/L (22-29); Chloride 106 mmol/L (96-108); Cholesterol 237 mg/dL (<200); Estimated Glomerular Filt Rate > 60; Glucose Fasting 101 mg/dL (60-99); HDL Cholesterol 71 mg/dL (>40); Iron 32 mcg/dL (30-160); LDL Cholesterol Calculated 140 mg/dL (<100); Percent Iron Saturation 8 % (15-50); Potassium 4.2 mmol/L (3.3-5.1); Sodium 138 mmol/L (135-145); Total Iron Binding Capacity 402 mcg/dL (228-428); Total Protein 7.6 g/dL (6.5-8.0); Triglycerides 134 mg/dL (<150); Unsaturated Iron Binding 370 ug/dL
[2024-02-08 09:46] LABS: Vitamin D 25-OH Total 27.8 ng/mL (>30)
[2024-02-08 10:27] LABS: Folate 13.1 ng/mL (> or = 4.0); Vitamin B12 581 pg/mL (200-900)
[2024-02-09 08:23] LABS: Mumps Virus IgG Antibody <9.00 AU/mL
== END 2024-02-08 08:15 | disposition home or self-care (01) ==
LOC: HO.LAB 08:14
PROVIDERS: PCP Internal Medicine; Visit Provider Internal Medicine
DX: Z00.00 Encounter for general adult medical examination without abnormal findings (principal); E55.9 Vitamin D deficiency, unspecified; E53.8 Deficiency of other specified B group vitamins; E78.5 Hyperlipidemia, unspecified; R53.83 Other fatigue; D64.9 Anemia, unspecified
CPT/HCPCS: 36415; 80053; 80061; 82306; 82607; 82746; 83540; 84443; 85025; 86735; 86762; 86765

== ENCOUNTER 2024-02-14 09:03 | Outpatient (AMB) | payer OTHER, SELFPAY ==
--- NOTE | 2024-02-14 09:35 | AM.OFFVISNUR ---
Intake Intake Visit Reasons: MMR vaccine Allergies pravastatin Adverse Reaction (Unknown, Verified 02/02/24 08:01) myalgias Immunizations M-M-R II (PF) 1,000-12,500 TCID50/0.5 mL subcutaneous solution Performing Provider: Shanta Garcia MD [facility] Administered by: Eh Shoemaker RN on 02/14/24 09:30 Dose Route Admin Location Dispensed Lot Number Expiration Date [employer] 0.5 mL subcut Left Arm 0.5 mL [id number] 11/24/24 5840-0993-67 [employer] D VIS Given Date VIS Provided VIS Publication Date 02/14/24 Single Vaccine 21 Eligibility Eligibility Date Funding Source Not [facility] Eligible 02/14/24 Private Administration Comments: patient consented for MMR vaccine. Tolerated well. Coding Assessment & Plan Assessment & Plan Orders: Orders MMR Immunization Today Z23 - Encounter for immunization Medications: New M-M-R II (PF) (measles,mumps,rubella vacc(PF)) 0.5 mL subcut ONCE 1 ea 0RF NS Z23 - Encounter for immunization
== END 2024-02-14 09:37 | disposition home or self-care (01) ==
PROVIDERS: PCP Internal Medicine; Visit Provider Internal Medicine
DX: Z23 Encounter for immunization (principal)
CPT/HCPCS: 90471; 90707

== ENCOUNTER 2024-03-07 08:26 | Outpatient (AMB) | payer OTHER, SELFPAY ==
[2024-03-07 08:32] VITALS: BP 128/86; BMI 26.8
--- NOTE | 2024-03-07 08:32 | A.OFFVIS_ITS ---
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 No complaints. Last Pap/HPV negative in 12/02 Last Mammogram BI-RADS 1 in 01/04 Last screening colonoscopy was in 06/05, the recommendation was to repeat in 10 years [facility] Medical History HTN (hypertension) GERD (gastroesophageal reflux disease) Endometrial hyperplasia Hypercholesterolemia Rash due to allergy History of anemia Pure hyperglyceridemia Vitamin D insufficiency Asthma Surgical History No pertinent past surgical history Family History Paternal Uncle Myocardial infarct Bipolar 1 disorder Mental health disorder Paternal Grandfather Stomach cancer Maternal Grandfather Lung cancer Mother Pancreatic cancer Father Essential hypertension Social History Household Members: Family Housing: Apartment Alcohol intake: current Alcohol intake frequency: holidays/special occasions only Patient Tobacco Use Status: Never used Tobacco e-Cigarette/Vaping Use: Never Used Second Hand Smoke Exposure: No service: No Current occupational status: employed Current occupational exposures/hazards: No Sexual orientation: Straight/Heterosexual Gender identity: Female Cognitive needs: No Hearing needs: No Vision needs: Yes (glasses) Female Reproductive History Menstrual Age of Menarche: 9 Date of last menstrual period: 12/27/23 Date of last pap smear: 11/25/21 History of abnormal pap smear: Yes History of STI: No Date of Mammogram: 12/16/23 History of abnormal mammogram: No Review of Systems Const All systems reviewed & are unremarkable except as noted in HPI and below Card Reports as per HPI Resp Reports as per HPI GI Reports as per HPI and Reports no additional complaints Reports as per HPI Physical Exam Vital Signs: Last Vital Signs BP 128/86 03/07/24 08:32 BMI result Body Mass Index 26.8 Const General: cooperative, healthy appearing and comfortable Chest Chest palpation & inspection: normal inspection of the chest and normal pal pation of entire chest wall Breast/axilla inspection: normal inspection of the breasts and normal inspection of the axillae Breast/axilla palpation: normal palpation of the breasts, normal palpation of the axillae and no axillary lymphadenopathy Resp Effort & Inspection: normal respiratory effort Auscultation: clear to auscultation bilaterally Percussion: percussion normal Cardio Palpation: normal PMI Rate: regular rate Rhythm: regular rhythm Heart sounds: no murmurs and no rubs Peripheral pulses: Peripheral pulses 2+ throughout GI Inspection: Yes normal to inspection Palpation (GI): Soft to palpation, nontender, no guarding, not rigid and No hepatosplenomegaly present Percussion: Yes normal to percussion Auscultation: normal bowel sounds Rectal Exam - Female: deferred General: Yes bladder normal to palpation External Female Exam: No lesion Speculum Exam - Vagina: normal appearance of the vagina, normal palpation, normal vaginal discharge and not erythematous Speculum Exam - Cervix: normal appearance of the cervix and normal palpation Bimanual exam- vagina & uterus: normal bimanual exam, normal palpation, uterine size normal, bladder normal to palpation, consistency normal and normal palpation Bimanual Exam- Adnexa, other: normal adnexae, no masses and no tenderness Assessment & Plan Assessment & Plan (1) Well woman exam: Code(s): Z01.419 - Encounter for gynecological examination (general) (routine) without abnormal findings Category: Medical Plan: Cotesting not indicated this year. Instructions given the patient to schedule next screening Mammogram in 01/05. Counseled the patient about the recommended dietary allowance of 1000 mg of Calcium & 600 IU of vitamin D. The patient was instructed to perform monthly self-breast exams and to schedule an annual exam in a year; All questions answered and the patient verbalized understanding. Instructed the patient to schedule annual exam in a year (2) Abnormal uterine bleeding (AUB): Comment: 2 myomas History of endometrial hyperplasia in 2014 Now on cyclic Provera, last H&H Anemia Code(s): N93.9 - Abnormal uterine and vaginal bleeding, unspecified Category: Medical Plan: GC and chlamydia taken CBC, TSH, prolactin, FSH/LH, HCG, and pelvic ultrasound ordered. Discussed with the patient the different causes of abnormal bleeding including thyroid disorders, uterine and ovarian pathology, endometrial hy perplasia, carcinoma and other potential causes. Discussed with the patient the work up including CBC (to r/o anemia), TSH, prolactin, pelvic Ultrasound, endometrial biopsy to r/o endometrial pathology. All questions answered and the patient verbalized understanding. Instructed the patient to schedule an appointment for an endometrial biopsy in 2 weeks. Orders: Orders TSH reflex Free T4 Today N93.9 - Abnormal uterine and vaginal bleeding, unspecified HCG Quantitative Today N93.9 - Abnormal uterine and vaginal bleeding, unspecified US pelvic and transvaginal Today N93.9 - Abnormal uterine and vaginal bleeding, unspecified Complete Blood Count no Diff Today N93.9 - Abnormal uterine and vaginal bleeding, unspecified Prolactin Today N93.9 - Abnormal uterine and vaginal bleeding, unspecified Lutenizing Hormone Today N93.9 - Abnormal uterine and vaginal bleeding, unspecified Follicle Stimulating Hormone Today N93.9 - Abnormal uterine and vaginal bleeding, unspecified Coding Level of Care Code Est Pt Prev Care 40-64y(45239) Diagnoses Well woman exam Z01.419 Abnormal uterine bleeding (AUB) N93.9
--- OUTSIDE RECORDS SUMMARY | 2024-03-09 08:01 | XMS_ITS | Continuity of Care Document ---
Author Organization Formerly [facility] Address [address] [place] [id number]- Care Team Providers Care Assistant Plant Manager Name Role Phone Gene Garcia MD, Lisa Primary Care Physician [place] [facility] [place]23 [place] 12/02/23 Formerly [facility] [address] [address] Attending Physician: Harshad Sullivan Admitting Physician: Harshad Sullivan Referring Physician: [id number] Allergies, Adverse Reactions, Alerts No Known Medication Allergies Medications acetaminophen-oxyCODONE 325 mg-5 mg oral tablet 1, tablet, By Mouth, Every 6 hours, PRN, # 7 tablet, Refills 0, Tot. Refills 0, Maintenance, Pain ,Severe, 04/23/22 19:28:00 EDT, Route to Pharmacy Electronically, [facility]/pharmacy #[id number] Tablet, Partialfill upon patient request if the [...] 04/23/22 19:28:00 EDT, Route to Pharmacy Electronically, [facility]/pharmacy #[id number], Partial fill upon patient request if the [...] on: 06/24/22 Sex Patient Care team information Care Team Personnel Name: Gene Garcia MD , Shanta Vargas Position: Reference Physician Member Role: PCP Address: Address: [address] [place] [address]- Care Team Related Persons Name: BENEDICT CANO Address: home [address] [place] [address]
--- OUTSIDE RECORDS SUMMARY | 2024-03-09 08:01 | XMS_ITS | Patient Health Record ---
Author Organization [facility] Address [address] [place] [address] Care Team Providers Care Compliance Attorney Name Role Phone Shanta Arthur Primary Care Provider Kayode Mathew Unavailable [phone] ALLERGIES Allergen (clinical drug ingredient) Drug/Non Drug Allergy documented on EMR Reaction Allergy Type Onset Date Status pravastatin Pravastatin Unknown Drug Allergy Act gladys RESULTS Component Value Reference Range Notes Ur Preg Test Reviewed date:06/07/2023 06:07:35 PM Interpretation: Performing Lab:[facility], [address] [place] [phone] Notes/Report: Urine NEGATIVE NEGATIVE This test was developed to detect early . False negative results may occur after the 5th - 7th week of when using this test method. If clinically indicated, consider a serum hCG. Pathology Reviewed date:06/13/2023 07:30:44 PM Interpretation: Performing Lab:[facility], [address] [place] [phone] Notes/Report: REASON FOR REFERRAL No Information MEDICATIONS Medication [...] unspecified whether esophagitis present (K21.9) Active confirmed 784217620 Problem Screening for colon cancer (Z12.11) Active confirmed [id number] Problem Gastroesophageal reflux disease (K21.9) Active confirmed Gastroesophagea l reflux disease (909943333) Encounters Encounter Location Date Provider Diagnosis [facility] [place] [address] [place] [phone] 06/07/2023 Kayode Paz Encounter for screen ing colonoscopy Z12.11 ; Other hemorrhoids K64.8 ; Gastroesophageal reflux disease K21.9 and Hiatal hernia K44.9 ASSESSMENTS Encounter Date Diagnosis Assessment Notes Treatment Notes Treatment Clinical Notes 06/07/2023 Encounter for screen ing colonoscopy (ICD-10 - Z12.11) 06/07/2023 Other hemorrhoids (ICD-10 - K64.8) 06/07/2023 Gastroesophageal ref lux disease (ICD-10 - K21.9) 06/07/2023 Hiatal hernia (ICD-1 0 - K44.9) PLAN OF TREATMENT Future Test Test Name Order Date UPPER GI ENDOSCOPY 12/03/2022 COLONOSCOPY 12/03/2022 Insurance Providers Payer Name Payer Address Payer Phone Subscriber Number Group Number Insured Name Patient Relationship to Insured Coverage Start Date Coverage End Date [facility] [address] [place] [phone] [id number] JASPER CANO Self - patient is the insured MEDICAL (GENERAL) HISTORY Medical History History ICD Code Denies DE,DM,CVA,Lung disease,renal dise ase Hypertension Hypercholesterolemia GERD Anemia due to her menses-sees Dr. Moses and Dr. Wagner Surgical History Surgery Date(Month/Year)
== END 2024-03-07 08:50 | disposition home or self-care (01) ==
LOC: HO.HWS 08:26
PROVIDERS: PCP Internal Medicine; Visit Provider Obstetrics & Gynecology
DX: Z01.419 Encounter for gynecological examination (general) (routine) without abnormal findings (principal); N93.9 Abnormal uterine and vaginal bleeding, unspecified
CPT/HCPCS: 99396

== ENCOUNTER 2024-03-07 08:26 | Outpatient (REF) | payer OTHER, SELFPAY ==
[2024-03-07 09:26] LABS: Hematocrit 40.3 % (37.0-47.0); Mean Corpuscular HGB Conc 32.3 g/dl (31.0-35.0); Mean Corpuscular Hemoglobin 27.3 pg (27.0-33.0); Mean Corpuscular Volume 84.5 fL (80.0-98.0); Mean Platelet Volume 9.5 fL (9.4-12.3); Platelet Count 403 X10*3/uL (160-400); Red Blood Count 4.77 X10*6/uL (4.20-5.50); Red Cell Distribution Width 15.8 % (11.0-16.0); White Blood Count 6.5 X10*3/uL (4.8-10.8)
[2024-03-07 10:21] LABS: HCG Quantitative < 2 mIU/mL; TSH reflex Free T4 1.12 uIU/mL (0.32-4.0)
[2024-03-09 08:56] LABS: Follicle Stimulating Hormone 67.4 mIU/mL; Lutenizing Hormone 18.6 mIU/mL
== END 2024-03-07 08:27 | disposition home or self-care (01) ==
LOC: HO.LAB 08:26
PROVIDERS: PCP Internal Medicine; Visit Provider Obstetrics & Gynecology
DX: Z01.419 Encounter for gynecological examination (general) (routine) without abnormal findings (principal); N93.9 Abnormal uterine and vaginal bleeding, unspecified
CPT/HCPCS: 36415; 83001; 83002; 84146; 84443; 84702; 85027

== ENCOUNTER 2024-03-07 09:30 | Outpatient (REF) | payer OTHER, SELFPAY ==
[2024-03-07 18:20] LABS: CT PCR NOT DETECTED (Not Detect.); NG PCR NOT DETECTED (Not Detect.)
== END 2024-03-07 09:31 | disposition home or self-care (01) ==
LOC: HO.LNP 09:30
PROVIDERS: Visit Provider Obstetrics & Gynecology
DX: N93.9 Abnormal uterine and vaginal bleeding, unspecified (principal)
CPT/HCPCS: 0353U

== ENCOUNTER 2024-03-27 16:06 | Outpatient (REF) | payer OTHER, SELFPAY ==
--- NOTE | ~2024-03-27 | US_ITS ---
EXAMINATION: US PELVIS CLINICAL INFORMATION: Abnormal bleeding, last menstrual period January 04. COMPARISON: 03/10/2023. TECHNIQUE: Ultrasound of the pelvis is performed using both transabdominal and transvaginal transducers along with Doppler. Transvaginal imaging is performed due to inadequate visualization transabdominally. FINDINGS: The uterus is anteverted and measures 7.8 x 5.4 x 5.6 cm. The uterus appears diffusely enlarged, bulky and heterogeneous with uterine volume of 123.5 mL. There is loss of the normal definition of the myometrial-endometrial definition. Appearance of uterus raises concern for adenomyosis versus fibroid change. Gynecologic consultation and possible additional imaging with MRI recommended. No significant free fluid. Right ovary measures 1.7 x 0.9 x 1.0 cm, volume 0.8 mL. Left ovary measures 1.9 x 1.2 x 1.4 cm, volume 1.7 mL. Bilateral ovaries are grossly unremarkable, although visualization is limited due to bowel gas. US/US pelvic and transvaginal IMPRESSION: 1. The uterus appears diffusely enlarged, bulky and heterogeneous with uterine volume of 123.5 mL. There is loss of the normal definition of the myometrial-endometrial junction. Appearance of uterus raises concern for adenomyosis versus fibroid change. Gynecologic consultation and possible additional imaging with MRI recommended. 2. Bilateral ovaries are grossly unremarkable, although visualization is limited due to bowel gas.
== END 2024-03-27 16:07 | disposition home or self-care (01) ==
LOC: HO.US 16:06
PROVIDERS: PCP Internal Medicine; Visit Provider Obstetrics & Gynecology
DX: N93.9 Abnormal uterine and vaginal bleeding, unspecified (principal)
CPT/HCPCS: 76830; 76856

== ENCOUNTER 2024-04-25 14:57 | Outpatient (AMB) | payer OTHER, SELFPAY ==
--- NOTE | 2024-04-25 15:00 | MHC.OFFVIS ---
Vital Signs 04/25/24 15:04 BP 140/60 H Intake Visit Reasons: Ultra sound follow up / EMB Allergies pravastatin Adverse Reaction (Unknown, Verified 04/25/24 15:00) myalgias HPI Comments Details: Presenting for EMB [facility] Medical History HTN (hypertension) GERD (gastroesophageal reflux disease) Endometrial hyperplasia Hypercholesterolemia Rash due to allergy History of anemia Pure hyperglyceridemia Vitamin D insufficiency Asthma Surgical History No pertinent past surgical history Family History Paternal Uncle Myocardial infarct Bipolar 1 disorder Mental health disorder Paternal Grandfather Stomach cancer Maternal Grandfather Lung cancer Mother Pancreatic cancer Father Essential hypertension Social History Household Members: Family Housing: Apartment Alcohol intake: current Alcohol intake frequency: holidays/special occasions only Patient Tobacco Use Status: Never used Tobacco e-Cigarette/Vaping Use: Never Used Second Hand Smoke Exposure: No service: No Current occupational status: employed Current occupational exposures/hazards: No Sexual orientation: Straight/Heterosexual Gender identity: Female Cognitive needs: No Hearing needs: No Vision needs: Yes (glasses) Female Reproductive History Menstrual Age of Menarche: 9 Review of Systems Const All systems reviewed & are unremarkable except as noted in HPI and below Reports as per HPI and Reports no additional complaints GI Reports no additional complaints Reports no additional complaints Physical Exam Vital Signs: Last Vital Signs BP 140/60 H 04/25/24 15:04 Office Procedures Endometrial Biopsy Details: The patient was counseled regarding the indication and benefits of endometrial sampling to rule out endometrial pathology including not limited to endometrial hyperplasia or endometrial cancer and others; The alternatives (Either do nothing vs. hysteroscopy D&C) & the risks were discussed with the patient including but not limited: pain, uterine perforation, bleeding, infection, possible injury to bladder, bowel, ureter, possible need for blood transfusion with all its possible risks. The patient verbalized understanding all questions answered and signed consent. Urine test done in the office was negative The patient was placed into the dorsal lithotomy position; a speculum was inserted in the vagina. Using aseptic technique for the procedure, the cervix was cleansed with Betadine. The anterior lip of the cervix was grasped with a single tooth tenaculum. The uterus was sounded to 7 cm with a 4 mm Pipelle was used. Tissues samples were obtained and placed in formalin, in a patient labeled container and sent to the pathology department. At the end of the procedure, there was minimal bleeding noted The patient tolerated the procedure well and was discharged in good condition with the following instructions: Nothing in the vagina until the bleeding stops. No sex until the bleeding stops, to call if any of the following occurs: fever (>100.4), flu-like symptoms, abdominal pain, heavy bleeding, four smelling vaginal discharge. The patient was instructed to schedule a Follow up appointment in 2 weeks to discuss pathology results of the biopsy and treatment options. This note was generated with a voice recognition program. Some errors may have been overlooked during the review of this note. Sometimes these errors may affect the content or meaning of a given sentence. [id number] Biopsy Results AMB Test Urine AMB Test Urine Negative Last Edit by SANTOS Fagan on 04/25/24 15:06 Results Reviewed Results Reviewed: Laboratory Last Values Tst Clinic Negative 04/25/24 15:06 Assessment & Plan Assessment & Plan (1) Abnormal uterine bleeding (AUB): Comment: 2 myomas History of endometrial hyperplasia in 2014 Now on cyclic Provera, last H&H Anemia Code(s): N93.9 - Abnormal uterine and vaginal bleeding, unspecified Category: Medical Plan: EMB done, see procedure note Orders: Orders AMB HCG Urine Test Today Z32.02 - Encounter for test, result negative AMB Endometrial Biopsy Today N93.9 - Abnormal uterine and vaginal bleeding, unspecified Coding Level of Care Code Procedure Only Diagnoses Abnormal uterine bleeding (AUB) N93.9 CPT Codes Endometrial Biopsy - CPT: 73573-[id number] Biopsy ([id number])
[2024-04-25 15:04] VITALS: BP 140/60
== END 2024-04-25 15:35 | disposition home or self-care (01) ==
LOC: HO.HWS 14:57
PROVIDERS: PCP Internal Medicine; Visit Provider Obstetrics & Gynecology
DX: N93.9 Abnormal uterine and vaginal bleeding, unspecified (principal); Z32.02 Encounter for pregnancy test, result negative
CPT/HCPCS: 58100

== ENCOUNTER 2024-04-25 14:57 | Outpatient (REF) | payer OTHER, SELFPAY | END 2024-04-25 14:58 | disposition home or self-care (01) | LOC: HO.LNP 14:57 | PROVIDERS: PCP Internal Medicine; Visit Provider Obstetrics & Gynecology | DX: N93.9 Abnormal uterine and vaginal bleeding, unspecified (principal) | CPT/HCPCS: 58100; 81025; 88305 ==

== ENCOUNTER 2024-05-01 11:09 | Outpatient (AMB) | payer OTHER, SELFPAY ==
[2024-05-01 11:26] VITALS: BP 126/82; BMI 26.7
--- NOTE | 2024-05-01 11:26 | A.OFFVIS_ITS ---
Vital Signs 05/01/24 11:26 Height 4 ft 9 in Weight 123 lb 7.342 oz BMI 26.7 BP 126/82 Intake Visit Reasons: pre op Statistician Required: No Information Interpreted: non-clinical & clinical Expressive Art Therapist: Expressive Art Therapist Present Accompanied by: Self / Same As Patient Allergies pravastatin Adverse Reaction (Unknown, Verified 04/25/24 15:00) myalgias Is last menstrual period known: Yes Last menstrual period: 07/11/20 Post menopausal: No Patient : No Do you need a note to return to daycare/school/sports/work: Yes (for surgery on wednesday) HPI Comments Details: The patient is presenting after endometrial biopsy. The patient has no complaints, no vaginal bleeding, no feverishness chills or abdominal pain. The endometrial biopsy pathology report showed the following: Endometrium, biopsy: Superficial strips of benign inactive endometrium with focal squamous morulae, and benign endocervical glandular and squamous epithelium (see comment). Comment: No atypia or carcinoma is seen in this specimen, however squamous morulae may be seen in benign or neoplastic processes. Clinical follow-up is warranted [facility] Medical History HTN (hypertension) GERD (gastroesophageal reflux disease) Endometrial hyperplasia Hypercholesterolemia Rash due to allergy History of anemia Pure hyperglyceridemia Vitamin D insufficiency Asthma Surgical History No pertinent past surgical history Family History Paternal Uncle Myocardial infarct Bipolar 1 disorder Mental health disorder Paternal Grandfather Stomach cancer Maternal Grandfather Lung cancer Mother Pancreatic cancer Father Essential hypertension Social History Household Members: Family Housing: Apartment Alcohol intake: current Alcohol intake frequency: holidays/special occasions only Patient Tobacco Use Status: Never used Tobacco e-Cigarette/Vaping Use: Never Used Second Hand Smoke Exposure: No Patient : No service: No Current occupational status: employed Current occupational exposures/hazards: No Sexual orientation: Straight/Heterosexual Gender identity: Female Cognitive needs: No Hearing needs: No Vision needs: Yes (glasses) Female Reproductive History Menstrual Age of Menarche: 9 Date of last menstrual period: 07/11/20 Total pregnancies: 2 Full term: 2 Review of Systems Card Reports as per HPI and Reports no additional complaints Resp Reports as per HPI and Reports no additional complaints GI Reports as per HPI and Reports no additional complaints Reports as per HPI Physical Exam Vital Signs: Last Vital Signs BP 126/82 05/01/24 11:26 BMI result Body Mass Index 26.7 Const General: cooperative, healthy appearing and comfortable Resp Effort & Inspection: normal respiratory effort Auscultation: clear to auscultation bilaterally Percussion: percussion normal Cardio Palpation: normal PMI Rate: regular rate Rhythm: regular rhythm Heart sounds: no murmurs and no rubs Peripheral pulses: Peripheral pulses 2+ throughout GI Inspection: Yes normal to inspection Palpation (GI): Soft to palpation, nontender, no guarding, not rigid and No hepatosplenomegaly present Percussion: Yes normal to percussion Auscultation: normal bowel sounds Rectal Exam - Female: deferred Assessment & Plan Assessment & Plan (1) Abnormal uterine bleeding (AUB): Comment: sq morules on emb 2 myomas History of endometrial hyperplasia in 2014 Code(s): N93.9 - Abnormal uterine and vaginal bleeding, unspecified Category: Medical Plan: Discussed with the patient the results of EMB pathology showing squamous morules and its possible association with endometrial hyperplasia and/or malignancy, recommended hysteroscopy D&C possible polypectomy to rule out endometrial pathology including hyperplasia or malignancy given the current pathology and history of endometrial hyperplasia in 2014. Discussed with the patient the procedure , all benefits and risks including but not limited to inability to complete the procedure , insufficient endometrial tissue for a complete evaluation of the endometrial cavity , bleeding, infection, possible need for blood transfusion with all its risk ( HIV,syphilis, Hepatitis, anaphylaxis shock, others..), injury to bladder, rectum, possible need for laparoscopy/laparotomy or hysterectomy. The patient verbalized understanding and signed the consent. Instructions given the patient to stay NPO after midnight the day prior to the procedure and to take only the specific medication (s) discussed the morning of the surgical procedure and to schedule a 2 week postoperative appointment Coding Level of Care Code Est Pt Level 3 (51164) Diagnoses Abnormal uterine bleeding (AUB) N93.9
== END 2024-05-01 13:11 | disposition home or self-care (01) ==
PROVIDERS: PCP Internal Medicine; Visit Provider Obstetrics & Gynecology
DX: N93.9 Abnormal uterine and vaginal bleeding, unspecified (principal)
CPT/HCPCS: 99213

== ENCOUNTER → 2024-05-01 11:09 | Outpatient (BNVA) | payer OTHER, SELFPAY | PROVIDERS: PCP Internal Medicine; Visit Provider Obstetrics & Gynecology ==

== ENCOUNTER 2024-05-12 11:25 | Day surgery (SDC) | payer OTHER, SELFPAY ==
[2024-05-10 09:10] VITALS: BMI 26.6
--- NOTE | 2024-05-10 13:09 | HO.ANESPROP2 ---
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) GERD (gastroesophageal reflux disease) (Acute) Latent tuberculosis (Acute) Paresthesia (Acute) Enlarged uterus (Acute) Immunization due (Acute) Family history of pancreatic cancer (Acute) Iron deficiency anemia (Acute) Normocytic anemia (Acute) Elevated CA-125 (Acute) Iron deficiency anemia due to chronic blood loss (Acute) Microscopic hematuria (Acute) Seasonal allergic reaction (Acute) Tinea pedis (Acute) Complex ovarian cyst (Acute) Abnormal uterine bleeding (AUB) (Acute) Hyperlipidemia (Acute) Physical exam (Acute) Breast cancer screening by mammogram (Acute) Hypertension (Acute) LFT elevation (Acute) Thrombocytosis (Acute) Metrorrhagia (Acute) Well woman exam (Acute) Asthma (Acute) Hypercholesterolemia (Acute) Rash due to allergy (Acute) Past Medical History Medical History HTN (hypertension) GERD (gastroesophageal reflux disease) Endometrial hyperplasia Hypercholesterolemia Rash due to allergy History of anemia Pure hyperglyceridemia Vitamin D insufficiency Asthma Family History Family History Paternal Uncle Myocardial infarct Bipolar 1 disorder Mental health disorder Paternal Grandfather Stomach cancer Maternal Grandfather Lung cancer Mother Pancreatic cancer Father Essential hypertension Family history of problems with anesthesia: No Surgical History Surgical History History of D&C History of Problems with Anesthesia: No Social History Social History Household Members: Family Housing: Apartment Alcohol intake: current Alcohol intake frequency: holidays/special occasions only Patient Tobacco Use Status: Never used Tobacco e-Cigarette/Vaping Use: Never Used Second Hand Smoke Exposure: No Use of substances other than those prescribed or required for medical reasons: No Are you DNR?: No Advance Directives: No Advance Directives Information Provided: Yes Recently lost weight without trying: No service: No Current occupational status: employed Current occupational exposures/hazards: No Sexual orientation: Straight/Heterosexual Gender identity: Female Cognitive needs: No Hearing needs: No Vision needs: Yes (glasses) Meds Allergies Allergy/AdvReac Type Severity Reaction Status Date / Time pravastatin AdvReac Unknown myalgias Verified 05/12/24 12:25 Home Medications ?Medication ?Instructions ?Recorded ?Confirmed ?Last Taken ?Type multivitamin 1 tab PO DAILY 08/17/22 05/12/24 Unknown History famotidine 20 mg tablet 20 mg PO DAILY 01/28/23 05/12/24 Unknown History Exam Height,Weight and Vital Signs: Height 4 ft 9 in Weight 55.792 kg Pertinent Lab Results Pertinent Lab Results: Laboratory Tests 03/07/24 09:16 WBC 6.5 Hgb 13.0 Hct 40.3 Plt Count 403 H Assessment and Plan Assessment Anesthesia Assessment: Chart Reviewed Final Anesthetic Review Family History of Problems with Anesthesia: No History of Problems with Anesthesia: No Documented by User: Faviola Garcia MD 05/12/24 13:22 [facility] Past Medical History Medical History HTN (hypertension) GERD (gastroesophageal reflux disease) Endometrial hyperplasia Hypercholesterolemia Rash due to allergy History of anemia Pure hyperglyceridemia Vitamin D insufficiency Asthma Family History Family History Paternal Uncle Myocardial infarct Bipolar 1 disorder Mental health disorder Paternal Grandfather Stomach cancer Maternal Grandfather Lung cancer Mother Pancreatic cancer Father Essential hypertension Surgical History Surgical History History of D&C Social History Social History Household Members: Family Housing: Apartment Alcohol intake: current Alcohol intake frequency: holidays/special occasions only Patient Tobacco Use Status: Never used Tobacco e-Cigarette/Vaping Use: Never Used Second Hand Smoke Exposure: No Use of substances other than those prescribed or required for medical reasons: No Are you DNR?: No Advance Directives: No Advance Directives Information Provided: Yes Recently lost weight without trying: No service: No Current occupational status: employed Current occupational exposures/hazards: No Sexual orientation: Straight/Heterosexual Gender identity: Female Cognitive needs: No Hearing needs: No Vision needs: Yes (glasses) Meds Allergies Allergy/AdvReac Type Severity Reaction Status Date / Time pravastatin AdvReac Unknown myalgias Verified 05/12/24 12:25 Home Medications ?Medication ?Instructions ?Recorded ?Confirmed ?Last Taken ?Type multivitamin 1 tab PO DAILY 08/17/22 05/12/24 Unknown History famotidine 20 mg tablet 20 mg PO DAILY 01/28/23 05/12/24 Unknown History Exam Airway Mallampati Class: II TM Dist: >3cm Neck ROM: Full Loose/Missing/Broken Teeth: No Heart: RRR Lungs: CTA Assessment and Plan Assessment Anesthesia Assessment: Anesthesia Plan Discussed Final Anesthetic Review NPO: Yes ASA Class: II Final Preanesthetic Review: Meds/Allgs Chart Reviewed, Consent Obtained/Reviewed and Anes Risks/Benef Reviewed Patient Risk: Low Procedure Risk: Low Anesthetic Plan Anesthetic Plan: GA Disposition: Standard PACU
--- OUTSIDE RECORDS SUMMARY | 2024-05-12 11:27 | XMS_ITS ---
Author Organization [facility] Address [address] [place] [address] Care Team Providers Care Sliver Lap Tender Name Role Phone Shanta Arthur Primary Care Provider Kayode Mathew Unavailable [phone] ALLERGIES Allergen (clinical drug ingredient) Drug/Non Drug Allergy documented on EMR Reaction Allergy Type Onset Date Status pravastatin Pravastatin Unknown Drug Allergy Act gladys REASON FOR VISIT Patient presents today for a SCREENING COLON MEDICATIONS Medication SIG (Take, Route, Frequency, Duration) Notes Start Date End Date Status Loratadine 10 MG TAKE 1 TABLET BY MOUTH EVERY DAY Oral for 90 Active medroxyPROGESTERone Acetate 10 MG TAKE 1 TABLET DAILY FROM DAY 15 TO 24 OF CYCLE EVERY MONTH,DAY 1 BEING 1ST DAY OF MENSES Oral for 90 Active Famotidine 20 MG 1 Orally Every morning and every evening for 30 day(s) 12/03/2022 Active Ferrous Sulfate 325 (65 Fe) MG TAKE 1 TA BLET BY MOUTH TWICE DAILY Oral for 90 Active Vitamin C 500 MG TAKE 1 TABLET BY MOUTH TWICE DAILY Oral for 30 Active Multivitamin Active Famotidine 20 MG 1 Orally Once a day as needed Active Vitamin D Active amLODIPine Besylate 5 MG TAKE 1 [...] unspecified whether esophagitis present (K21.9) Active confirmed [id number] Problem Screening for colon cancer (Z12.11) Active confirmed [id number] VITAL SIGNS BMI 27.05 kg/m2 12/03/2022 Blood pressure systolic 000 mm Hg 12/04/19 Blood pressure diastolic 00 mm Hg 023 Height 57 in 12/03/2022 Temperature 97.8 degrees Fahrenheit 12/04/19 Weight 125 lbs 12/03/2022 Encounters Encounter Location Date Provider Diagnosis [facility] [address] [place] [address] 12/03/2022 Kayode Paz Gastroesophageal ref lux disease, unspecified whether esophagitis present K21.9 and Screening for colon cancer Z12.11 ASSESSMENTS Encounter Date Diagnosis Assessment Notes Treatment Notes Treatment Clinical Notes 12/03/2022 Gastroesophageal ref lux disease, unspecified whether esophagitis present (ICD-10 - K21.9) 12/03/2022 Screening for colon cancer (ICD-10 - Z12.11) Stop the Iron(Ferrous sulfate) for 1 week before the procedures. PLAN OF TREATMENT Medication Medication Name Sig Start Date Stop Date Notes Famotidine 20 MG 1 Orally Every morni ng and every evening for 30 day(s) 12/03/2022 Treatment Notes Assessment Notes Screening for colon cancer Stop the Iron (Ferrous sulfate) for 1 week before the procedures. Future Test Test Name Order Date UPPER GI ENDOSCOPY 12/03/2022 COLONOSCOPY 12/03/2022 Next Appt Details Follow Up: prn, Reason: Progress Notes * Examination Category Sub-Category Detail Notes General Examination GENERAL APPEARANCE: pleasant , well nourished, well developed, in no acute distress HEAD: EYES: sclera non-icteric EARS: NOSE: THROAT: NECK/THYROID: no cervical lymphade nopathy, neck supple HEART: S1, S2 normal CHEST: LUNGS: clear to auscultatio n bilaterally ABDOMEN: normal bowel sounds, no guarding or rigidity, no guarding or rigidity, no masses palpable, soft, nontender, nondistended NEUROLOGIC: alert and oriented SKIN: nonjaundiced, no spi constance angiomata EXTREMITIES: no edema PERIPHERAL PULSES: BACK: BREASTS: MUSCULOSKELETAL: MALE GENITOURINARY: LYMPH NODES: RECTAL EXAM: FEMALE GENITOURINARY: ORAL CAVITY: mucosa moist
--- OUTSIDE RECORDS SUMMARY | 2024-05-12 11:27 | XMS_ITS ---
Author Organization [facility] Address [address] [place] [address] Care Team Providers Care Director Of Dietary Name Role Phone Shanta Arthur Primary Care Provider Unavailab Kayode Mayer Unavailable [phone] REASON FOR VISIT screening colon PROBLEMS Problem Type ICD Code Onset Dates Problem Status W/U Status Risk SNOMED Code Notes Problem Gastroesophageal reflux disease (K21.9) Active confirmed Gastroesophagea l reflux disease (038398871) Encounters Encounter Location Date Provider Diagnosis [facility] [place] Outpatient [address] [place] [id number] 06/07/2023 Kayode Paz Encounter for screen ing [...] (ICD-1 0 - K44.9) PLAN OF TREATMENT No Information
--- OUTSIDE RECORDS SUMMARY | 2024-05-12 11:28 | XMS_ITS | Patient Health Record ---
Author Organization [facility] Address [address] [place] [address] Care Team Providers Care Line Up Machine Operator Name Role Phone Shanta Arthur Primary Care Provider Kayode Mathew Unavailable [phone] ALLERGIES Allergen (clinical drug ingredient) Drug/Non Drug Allergy documented on EMR Reaction Allergy Type Onset Date Status pravastatin Pravastatin Unknown Drug Allergy Act gladys RESULTS Component Value Reference Range Notes Ur Preg Test Reviewed date:06/07/2023 06:07:35 PM Interpretation: Performing Lab:[facility], [address] [place] [phone] Notes/Report: Urine NEGATIVE NEGATIVE This test was developed to detect early . False negative results may occur after the 5th - 7th week of when using this test method. If clinically indicated, consider a serum hCG. Pathology Reviewed date:06/13/2023 07:30:44 PM Interpretation: Performing Lab:[facility], [address] [place] [phone] Notes/Report: REASON FOR REFERRAL No Information MEDICATIONS [...] unspecified whether esophagitis present (K21.9) Active confirmed [id number] Problem Screening for colon cancer (Z12.11) Active confirmed [id number] Problem Gastroesophageal reflux disease (K21.9) Active confirmed Gastroesophagea l reflux disease (286037411) Encounters Encounter Location Date Provider Diagnosis [facility] [address] [place] [id number] 06/07/2023 Kayode Paz Encounter for screen ing [...] Insured Coverage Start Date Coverage End Date [facility] [address] [place] [address] [phone] [id number] JASPER CANO Self - patient is the insured MEDICAL (GENERAL) HISTORY Medical History History ICD Code Denies DE,DM,CVA,Lung disease,renal dise ase Hypertension Hypercholesterolemia GERD Anemia due to her menses-sees Dr. Moses and Dr. Wagner Surgical History Surgery Date(Month/Year)
[2024-05-12 12:22] LABS: UPreg QC Valid YES; Urine Pregnancy NEGATIVE (NEGATIVE)
[2024-05-12 12:29] VITALS: BP 146/94; PULSE 66; RESP 16; TEMP 37.3; O2SAT 97; BMI 27.0
[2024-05-12] MEDS: Lactated Ringers 1,000 ML 100 ML IVCONT (12:59)
--- NOTE | 2024-05-12 13:11 | MHC.SHP ---
Pre-Procedural Eval Section A - 24 Hr Update-Section A only Date of Service: 05/12/24 The patient is an INPATIENT: No Changes since office visit: No Cold of Flu in the past 2 weeks, No New Medical Problems, No Changes in Medication and No Patient answered all questions The patient has been examined within 24 hours of the surgical procedure. The History & Physical has been completed within 30 days and I have reviewed it.: Yes Section B - Complete if H&P > 30 days Chief Complaint: Abnormal uterine and vaginal bleeding, unspecified Allergies: Allergies Allergy/AdvReac Type Severity Reaction Status Date / Time pravastatin AdvReac Unknown myalgias Verified 05/12/24 12:25 Plan Diagnosis/Plan: Unchanged I have reviewed the history and physical and performed a pertinent physical examination on my patient. No changes have occurred unless specified. Time Spent With Patient Time: Total time managing care of this patient today ____ minutes.
--- NOTE | 2024-05-12 14:02 | P.BOP_ITS ---
Brief Operative Note Date of Service: 05/12/24 Pre-op diagnosis: Abnormal uterine bleeding, squamous morules on EMB pathology Post-op diagnosis: same (Normal endometrial cavity) Procedure: Hysteroscopy D&C Surgeon: Juan Jose Wagner MD Anesthesia: GLMA Was an Md Do Resident Ur[facility] used for this Procedure?: No Estimated blood loss (mL): 0 Pathology: other (Endometrial Scrapping) Condition: stable Disposition: PACU
--- NOTE | 2024-05-12 14:03 | W.PM.OPN ---
Operative Note Operative Note Date of Service: 05/12/24 Narrative: Preop Diagnosis: Abnormal uterine bleeding, squamous morules on EMB pathology Operation: Diagnostic Hysteroscopy, Dilataion & Curettage Post Op Diagnosis: Normal endometrial and endocervical cavity, no evidence of pathology QBL: Minimal Anesthesia: GLMA Surgeon: Juan Jose Wagner MD Community Product Specialist: None Complication: None Pathology: Endometrial Scrapings Procedure: The patient was put in the dorsal lithotomy position, scrubbed, and draped in the usual manner. A sterile speculum was inserted in the patient's vagina. The anterior lip of the cervix was grasped with a single tooth tenaculum. The cervix was dilated up to 5 mm, then the scope was inserted in the patient's uterus. Inspection revealed normal endocervical & endometrial cavity with no evidence of pathology. The scope was taken out of the uterine cavity , then sharp curetting was carried on with no complications. At the end of the procedure, all instruments were taken out of the patient uterine and vaginal cavity. The single tooth tenaculum was removed and homeostasis was assured using pressure. The patient tolerated the procedure well and was transferred to the PACU in a stable condition.
[2024-05-12 14:07] VITALS: BP 134/79; PULSE 76; RESP 18; TEMP 36.5; O2SAT 100
[2024-05-12 14:12] VITALS: BP 129/81; PULSE 72; RESP 18; O2SAT 100
[2024-05-12 14:17] VITALS: BP 135/85; PULSE 63; RESP 18; O2SAT 98
[2024-05-12 14:22] VITALS: BP 137/86; PULSE 72; RESP 18; O2SAT 98
[2024-05-12 14:37] VITALS: BP 138/83; PULSE 63; RESP 18; TEMP 36.6; O2SAT 98
== END 2024-05-12 15:25 | disposition home or self-care (01) ==
PROVIDERS: PCP Internal Medicine; Visit Provider Obstetrics & Gynecology
PROC: 0UDB8ZZ Extraction of Endometrium, Via Natural or Artificial Opening Endoscopic (ICD-10-PCS; CPT 58558; principal; 2024-05-12 13:00)
DX: N85.00 Endometrial hyperplasia, unspecified (principal); N93.9 Abnormal uterine and vaginal bleeding, unspecified; I10 Essential (primary) hypertension; E55.9 Vitamin D deficiency, unspecified; E78.00 Pure hypercholesterolemia, unspecified; J45.909 Unspecified asthma, uncomplicated; K21.9 Gastro-esophageal reflux disease without esophagitis; Z88.8 Allergy status to other drugs, medicaments and biological substances; Z79.899 Other long term (current) drug therapy
CPT/HCPCS: 58558; 81025; 88305; C1769; J1100; J1885; J2250; J2405; J2704; J3010

== ENCOUNTER → 2024-05-12 11:25 | Outpatient (BNV) | payer OTHER, SELFPAY | PROVIDERS: PCP Internal Medicine; Visit Provider Obstetrics & Gynecology | DX: N93.9 Abnormal uterine and vaginal bleeding, unspecified (principal) | CPT/HCPCS: 58558 ==

== ENCOUNTER 2024-06-01 11:27 | Outpatient (AMB) | payer OTHER, SELFPAY ==
--- OUTSIDE RECORDS SUMMARY | 2024-06-01 11:29 | XMS_ITS ---
Author Organization [facility] Address [address] [place] [address] Care Team Providers Care Painter Spring Name Role Phone Shanta Arthur Primary Care Provider Kayode Mathew Unavailable [phone] ALLERGIES Allergen (clinical drug ingredient) Drug/Non Drug [...] unspecified whether esophagitis present (K21.9) Active confirmed [id number] Problem Screening for colon cancer (Z12.11) Active confirmed [id number] VITAL SIGNS BMI 27.05 kg/m2 12/03/2022 Blood pressure systolic 000 mm Hg 12/04/19 Blood pressure diastolic 00 mm Hg 023 Height 57 in 12/03/2022 Temperature 97.8 degrees Fahrenheit 12/04/19 Weight 125 lbs 12/03/2022 Encounters Encounter Location Date Provider Diagnosis [facility] [address] [place] [address] 12/03/2022 Kayode Paz Gastroesophageal ref lux disease, [...]
--- OUTSIDE RECORDS SUMMARY | 2024-06-01 11:29 | XMS_ITS ---
Author Organization [facility] Address [address] [place] [address] Care Team Providers Care Home Improvement Installer Name Role Phone Shanta Arthur Primary Care Provider Unavailab Kayode Mayer Unavailable [phone] REASON FOR VISIT screening colon PROBLEMS Problem Type ICD Code Onset Dates Problem Status W/U Status Risk SNOMED Code Notes Problem Gastroesophageal reflux disease (K21.9) Active confirmed Gastroesophagea l reflux disease (962861454) Encounters Encounter Location Date Provider Diagnosis [facility] [place] [address] [place] [id number] 06/07/2023 Kayode Paz Encounter for screen ing [...]
--- OUTSIDE RECORDS SUMMARY | 2024-06-01 11:30 | XMS_ITS | Patient Health Record ---
Author Organization [facility] Address [address] [place] [address] Care Team Providers Care Route Vending Machine Servicer Name Role Phone Shanta Arthur Primary Care Provider Kayode Mathew Unavailable [phone] ALLERGIES Allergen (clinical drug ingredient) Drug/Non Drug Allergy documented on EMR Reaction Allergy Type Onset Date Status pravastatin Pravastatin Unknown Drug Allergy Act gladys RESULTS Component Value Reference Range Notes Ur Preg Test Reviewed date:06/07/2023 06:07:35 PM Interpretation: Performing Lab:[facility], [address] [place] [phone] Notes/Report: Urine NEGATIVE NEGATIVE This test was developed to detect early . False negative results may occur after the 5th - 7th week of when using this test method. If clinically indicated, consider a serum hCG. Pathology Reviewed date:06/13/2023 07:30:44 PM Interpretation: Performing Lab:[facility], [address] [place] [phone] Notes/Report: REASON FOR REFERRAL No Information MEDICATIONS [...] unspecified whether esophagitis present (K21.9) Active confirmed [id number] Problem Screening for colon cancer (Z12.11) Active confirmed 084309465 Problem Gastroesophageal reflux disease (K21.9) Active confirmed Gastroesophagea l reflux disease (571489151) Encounters Encounter Location Date Provider Diagnosis [facility] Out[place] [address] [place] [id number] 06/07/2023 Kayode Paz Encounter for screen ing [...] Insured Coverage Start Date Coverage End Date [facility] [address] [place] [address] [phone] [id number] JASPER CANO Self - patient is the insured MEDICAL (GENERAL) HISTORY Medical History History ICD Code Denies [place],DM,CVA,Lung disease,renal dise ase Hypertension Hypercholesterolemia GERD Anemia due to her menses-sees Dr. Moses and Dr. Wagner Surgical History Surgery Date(Month/Year)
--- NOTE | 2024-06-01 11:32 | A.OFFVIS_ITS ---
Vital Signs 06/01/24 11:34 Height 4 ft 9 in Weight 124 lb BMI 26.8 Intake Visit Reasons: post op Traveling Freight Agent Required: No Information Interpreted: non-clinical & clinical Accompanied by: Self / Same As Patient Allergies pravastatin Adverse Reaction (Unknown, Verified 05/12/24 12:25) myalgias HPI Comments Details: The patient is presenting post hysteroscopy D&C no complaints minimal vaginal bleeding no feverishness chills or abdominal pain. The pathology showed the following: Endometrium, curettage: Scant superficial strips of benign endometrium; abundant blood; no atypia identified Office EMB showed the following: Endometrium, biopsy: Superficial strips of benign inactive endometrium with focal squamous morulae, and benign endocervical glandular and squamous epithelium (see comment). Comment: No atypia or carcinoma is seen in this specimen, however squamous morulae may be seen in benign or neoplastic processes. Clinical follow-up is warranted The following workup was done.: H&H= 13/40.3 TSH, prolactin, hCG, GC and chlamydia were negative. FSH/LH are elevated in the menopausal range 67.4/18.6 Co testing was done in 11/30 was negative. Mammogram in 01/04 was BI-RADS 1. Pelvic ultrasound showed the following: The uterus is anteverted and measures 7.8 x 5.4 x 5.6 cm. The uterus appears diffusely enlarged, bulky and heterogeneous with uterine volume of 123.5 mL. There is loss of the normal definition of the myometrial-endometrial definition. Appearance of uterus raises concern for adenomyosis versus fibroid change. Gynecologic consultation and possible additional imaging with MRI recommended. No significant free fluid. Right ovary measures 1.7 x 0.9 x 1.0 cm, volume 0.8 mL. Left ovary measures 1.9 x 1.2 x 1.4 cm, volume 1.7 mL. Bilateral ovaries are grossly unremarkable, although visualization is limited due to bowel gas. [facility] Medical History HTN (hypertension) GERD (gastroesophageal reflux disease) Endometrial hyperplasia Hypercholesterolemia Rash due to allergy History of anemia Pure hyperglyceridemia Vitamin D insufficiency Asthma Surgical History History of D&C Family History Paternal Uncle Myocardial infarct Bipolar 1 disorder Mental health disorder Paternal Grandfather Stomach cancer Maternal Grandfather Lung cancer Mother Pancreatic cancer Father Essential hypertension Social History Household Members: Family Housing: Apartment Alcohol intake: current Alcohol intake frequency: holidays/special occasions only Patient Tobacco Use Status: Never used Tobacco e-Cigarette/Vaping Use: Never Used Second Hand Smoke Exposure: No service: No Current occupational status: employed Current occupational exposures/hazards: No Sexual orientation: Straight/Heterosexual Gender identity: Female Cognitive needs: No Hearing needs: No Vision needs: Yes (glasses) Female Reproductive History Menstrual Age of Menarche: 9 Review of Systems Const All systems reviewed & are unremarkable except as noted in HPI and below Reports as per HPI and Reports no additional complaints GI Reports no additional complaints Reports no additional complaints Physical Exam Vital Signs: BMI result Body Mass Index 26.8 Assessment & Plan Assessment & Plan (1) Abnormal uterine bleeding (AUB): Comment: FSH/ LH elevated Code(s): N93.9 - Abnormal uterine and vaginal bleeding, unspecified Category: Medical Plan: Discussed with the patient the results of the work up done including endometrial pathology and elevated FSH/LH and the options of treatment including but not limited to cyclic Progesterone, Mirena IUD, and hysterectomy. All pros, cons, risks and benefits of each option were discussed with the patient and the patient decided to go ahead with cyclic Provera, so a more detailed discussion re: Progesterone treatment including mechanism of action, benefits (regular menses, endometrial protection form unopposed estrogen and reduction in the risk of endometrial hyperplasia and/or cancer ...), risks (Thrombosis, mood changes, weight gain, breast soreness, ? increased breast ca, others). Instructions were given to take the medication 1 tablet daily starting day 15-24 (prescription sent last visit) and to discontinue medication if patient has negative withdrawal bleed after 10 day course of progesterone and to schedule a 6 months follow-up appointment; patient verbalized understanding and agreed with the plan. Coding Level of Care Code Est Pt Level 3 (45494) Diagnoses Abnormal uterine bleeding (AUB) N93.9
[2024-06-01 11:34] VITALS: BMI 26.8
== END 2024-06-01 12:00 | disposition home or self-care (01) ==
LOC: HO.HWS 11:27
PROVIDERS: PCP Internal Medicine; Visit Provider Obstetrics & Gynecology
DX: N93.9 Abnormal uterine and vaginal bleeding, unspecified (principal)
CPT/HCPCS: 99213

== ENCOUNTER → 2024-06-01 11:27 | Outpatient (BNVA) | payer OTHER, SELFPAY | PROVIDERS: PCP Internal Medicine; Visit Provider Obstetrics & Gynecology ==

== ENCOUNTER 2024-08-07 07:57 | Outpatient (AMB) | payer OTHER, SELFPAY ==
[2024-08-07 08:02] VITALS: BP 118/76; BMI 26.8
--- NOTE | 2024-08-07 08:02 | A.OFFPC_ITS ---
Vital Signs 08/07/24 08:02 Height 4 ft 9 in Weight 124 lb BMI 26.8 BP 118/76 Blood Pressure Location Lt brachial Position Sitting Intake Visit Reasons: bp Intake Note: Patient here for a follow up BP Fly Raiser Lockstitch Required: No Accompanied by: Self / Same As Patient Allergies pravastatin Adverse Reaction (Unknown, Verified 08/07/24 08:20) myalgias Medication List - Last Reconciled 08/07/24 by Shanta Garcia MD amlodipine 5 mg PO DAILY 90 days famotidine 20 mg PO DAILY loratadine 10 mg PO DAILY 90 days medroxyprogesterone (Provera) 10 mg PO DAILY 10 days multivitamin 1 tab PO DAILY Ventolin HFA 90 mcg/actuation (albuterol sulfate) 2 puffs inhalation Q4-6H PRN 30 days NS Tobacco use date assessed: 01/13/24 Dental Screening Dental Screen Date: 08/07/24 Did you have a dental visit in the last 12 months?: No Did you have a dental problem in the last 6 months where you did not have access to dental care?: No Was dental information given to patient?: Patient has dentist HPI HPI Comments History of Present Illness Details The patient is a 44-year-old female presenting with hypertension, fatigue, and snoring. Her hypertension appears to be well managed, with a current blood pressure reading of 118/76 mmHg. She is on amlodipine 5 mg once daily for hypertension management. The patient reports experiencing fatigue, w hich she associates with recent weight gain and potential menopausal changes. She experiences fatigue despite getting approximately eight hours of sleep; however, she notes feeling particularly tired on occasions when her sleep is interrupted. She is in the menopausal stage, with a recent blood test confirming this diagnosis. She has previously attempted hormone therapy with Provera for 10 days during which there was no return of menstruation. Additionally, the patient's reports increased snoring, along with episodes where she appears to have difficulty breathing during sleep, leading to morning fatigue and borderline elevated blood pressure upon waking. The patient denies any significant daytime sleepiness but mentions moments of fatigue while seated or after lunch, although it is not frequent. The patient's asthma is mild and well- controlled, rarely requiring the use of a rescue inhaler (albuterol) less than once a month. She denies any recent chest pain, shortness of breath, fever, or coughing. [facility] Medical History HTN (hypertension) GERD (gastroesophageal reflux disease) Endometrial hyperplasia Hypercholesterolemia Rash due to allergy History of anemia Pure hyperglyceridemia Vitamin D insufficiency Asthma Surgical History History of D&C Family History Paternal Uncle Myocardial infarct Bipolar 1 disorder Mental health disorder Paternal Grandfather Stomach cancer Maternal Grandfather Lung cancer Mother Pancreatic cancer Father Essential hypertension Social History Household Members: Family Housing: Apartment Alcohol intake: current Alcohol intake frequency: holidays/special occasions only Patient Tobacco Use Status: Never used Tobacco e-Cigarette/Vaping Use: Never Used Second Hand Smoke Exposure: No service: No Current occupational status: employed Current occupational exposures/hazards: No Sexual orientation: Straight/Heterosexual Gender identity: Female Cognitive needs: No Hearing needs: No Vision needs: Yes (glasses) Female Reproductive History Menstrual Age of Menarche: 9 Questionnaire Thrive Questionnaire Date Thrive assessed: 01/13/24 AUDIT C Alcohol Use Questionnaire (AUDIT-C) 2. How many drinks containing alcohol do you have on a typical day when you are drinking?: 1 or 2 3. How often do you have six or more drinks on one occasion?: Never Total Score: 0 SHAYY-7 AMB Questionnaire SHAYY-7 Date SHAYY - 7 assessed: 01/13/24 Source: Developed by Drs. Kayode Waite, Glo Schwab, Demarcus Yi and colleagues, with an educational renee from [employer]. Review of Systems Const All systems reviewed & are unremarkable except as noted in HPI and below Card Denies chest pain at rest, Denies chest pain with activity, Denies edema, Denies irregular heart rhythm, Denies claudication, Denies dyspnea, Denies dyspnea on exertion, Denies orthopnea, Denies paroxysmal nocturnal dyspnea and Denies slow heart rate Resp Denies cough, Denies dyspnea and Denies dyspnea on exertion GI Denies abdominal pain, Denies change in bowel habits, Denies excessive flatus, Denies nausea and Denies vomiting Denies urinary incontinence, Denies urinary hesitancy and Denies urinary urgency Neuro Denies behavioral changes and Denies lack of coordination Psych Denies behavioral changes Physical exam (Primary Care) Vital Signs: Last Vital Signs BP 118/76 08/07/24 08:02 BMI result Body Mass Index 26.8 Tobacco/Smoking Status: Tobacco use Status Tobacco use date assessed 01/13/24 08/07/24 08:04 Patient Tobacco Use Status Never used Tobacco 08/07/24 08:04 e-Cigarette/Vaping Use Never Used 08/07/24 08:04 Thrive Assessment: Date of Thrive Assessment Date Thrive assessed 01/13/24 08/07/24 08:04 Resp Effort & Inspection: normal respiratory effort Auscultation: clear to auscultation bilaterally Cardio Jugular venous distension: no JVD Rate: regular rate Rhythm: regular rhythm Heart sounds: S1 normal heart sound present and S2 normal heart sound present Extrem General: Yes full ROM Office Procedures Flu Questionnaire Does the patient have a severe egg allergy?: No Immunizations Fluarix Triv [id number] (PF) 45 mcg (15 mcg x 3)/0.5 mL IM syringe Performing Provider: Shanta Garcia MD [place] [facility] [place] [facility] Documented (not given) by: SANTOS Baez on 08/07/24 08:35 Reason Not Given: Patient Refused Coding Level of Care Code Est Pt Level 4 (02468) Complex EM visit Add On G2211 Diagnoses Daytime somnolence R40.0 Mild asthma J45.909 GERD (gastroesophageal reflux disease) K21.9 Essential (primary) hypertension I10 Time Spent (min) 21 Assessment & Plan Assessment & Plan (1) Daytime somnolence: Code(s): R40.0 - Somnolence Category: Medical (2) Mild asthma: Code(s): J45.909 - Unspecified asthma, uncomplicated Category: Medical (3) GERD (gastroesophageal reflux disease): Code(s): K21.9 - Gastro-esophageal reflux disease without esophagitis Category: Medical (4) Essential (primary) hypertension: Code(s): I10 - Essential (primary) hypertension Category: Medical Plan - Hypertension: Continue current medication regimen of amlodipine 5 mg once daily. - Fatigue and Snoring: Arrange for a home-based sleep study to evaluate for po ssible sleep apnea. - Menopause: Currently not on hormone therapy, given cessation of Provera due to lack of menstruation return. Monitor symptoms related to menopause. - Asthma: No changes necessary; continue with current medications and rescue inhaler as needed. - Allergic Reaction: Pravastatin previously discontinued due to muscle pain; avoid in future prescriptions. Patient was informed and verbally consented to the use of an ambient scribe for clinic note documentation during this visit. During the visit, we discussed the current management of hypertension, which remains stable with a reading of 118/76 mmHg. We explored the possible causes of fatigue and the impact of menopause, noting a recent blood test that confirmed the menopause diagnosis. Given reports of snoring and associated fatigue, I recommended a home sleep study to assess for sleep apnea. I emphasized the importance of this evaluation, considering the noted difficulty in breathing during sleep and its potential contribution to daytime fatigue and slightly elevated blood pressure upon waking. We reviewed the patient's asthma, confirming its stability and the infrequency of inhaler use. We also discussed the previous allergic reaction to pravastatin, underscoring the need to avoid this medication going forward. I detailed the planned sleep study procedure, ensuring the patient understands the steps involved and how it may provide insight into her symptoms. Orders: Orders Comprehensive [place]. Panel Fast 6 Months I10 - Essential (primary) hypertension Influenza [id number] Immunization Today Z23 - Encounter for immunization Lipid Panel 6 Months E78.5 - Hyperlipidemia, unspecified RT home sleep study Today R40.0 - Somnolence Patient Instructions: - Continue taking amlodipine 5 mg daily for hypertension. - Schedule and complete the home sleep study as instructed. - Monitor for any new symptoms or changes in current symptoms related to menopause and fatigue. - Use the albuterol inhaler as needed for asthma symptoms, but continue to monitor. - Avoid pravastatin due to previous allergic reaction. - Report any significant changes in health or worsening of fatigue.
== END 2024-08-07 08:30 | disposition home or self-care (01) ==
PROVIDERS: PCP Internal Medicine; Visit Provider Internal Medicine
DX: R40.0 Somnolence (principal); J45.909 Unspecified asthma, uncomplicated; K21.9 Gastro-esophageal reflux disease without esophagitis; I10 Essential (primary) hypertension; Z23 Encounter for immunization

== ENCOUNTER → 2024-08-07 07:57 | Outpatient (BNVA) | payer OTHER, SELFPAY | PROVIDERS: PCP Internal Medicine; Visit Provider Internal Medicine | DX: I10 Essential (primary) hypertension (principal); R53.83 Other fatigue; R06.83 Snoring; R40.0 Somnolence; J45.909 Unspecified asthma, uncomplicated; K21.9 Gastro-esophageal reflux disease without esophagitis; Z78.0 Asymptomatic menopausal state; Z79.899 Other long term (current) drug therapy; Z28.21 Immunization not carried out because of patient refusal | CPT/HCPCS: 90471 ==

== ENCOUNTER → 2024-09-20 08:03 | Outpatient (REF) | payer OTHER, SELFPAY ==
--- OUTSIDE RECORDS SUMMARY | 2024-09-20 08:05 | XMS_ITS ---
Author Organization [facility] Address [address] [place] [address] Care Team Providers Care Streetcar Repairer Helper Name Role Phone Shanta Arthur Primary Care Provider Unavailab Kayode Mayer Unavailable [phone] REASON FOR VISIT screening colon PROBLEMS Problem Type ICD Code Onset Dates Problem Status W/U Status Risk SNOMED Code Notes Problem Gastroesophageal reflux disease (K21.9) Active confirmed Gastroesophagea l reflux disease (749136520) Encounters Encounter Location Date Provider Diagnosis [facility] Outpatient [address] [place] [id number] 06/07/2023 Kayode Paz Encounter for screen ing [...]
--- OUTSIDE RECORDS SUMMARY | 2024-09-20 08:05 | XMS_ITS | Patient Health Record ---
Author Organization [facility] Address [address] [place] [address] Care Team Providers Care Heavy Equipment Operator/Paver Name Role Phone Shanta Arthur Primary Care Provider Kayode Mathew Unavailable [phone] ALLERGIES Allergen (clinical drug ingredient) Drug/Non Drug [...] unspecified whether esophagitis present (K21.9) Active confirmed 511818766 Problem Screening for colon cancer (Z12.11) Active confirmed 565826995 Problem Gastroesophageal reflux disease (K21.9) Active confirmed Gastroesophagea l reflux disease (925289006) PLAN OF TREATMENT Future Test Test Name Order Date UPPER GI ENDOSCOPY 12/03/2022 COLONOSCOPY 12/03/2022 Insurance Providers Payer Name Payer Address Payer Phone Subscriber Number Group Number Insured Name Patient Relationship to Insured Coverage Start Date Coverage End Date [facility] [address] [place] [phone] [id number] JASPER CANO Self - patient is the insured MEDICAL (GENERAL) HISTORY Medical History History ICD Code Denies DC,DM,CVA,Lung disease,renal dise ase Hypertension Hypercholesterolemia GERD Anemia due to her menses-sees Dr. Moses and Dr. Wagner Surgical History Surgery Date(Month/Year)
--- OUTSIDE RECORDS SUMMARY | 2024-09-20 08:05 | XMS_ITS | Data Portability ---
Author Organization [facility]EN[facility]y [facility], [address] Address [address] [place] [address] Care Team Providers Care Consumer Loan Processor Name Role Phone TERENCE ARMIJO Primary Care Provider Assessment No assessment recorded. Plan of Treatment Reminders Order Date Submit Date Provider Last Modified By Organization Details Last Modified Time Details Appointments None recorded. Lab None recorded. Referral None recorded. Procedures None recorded. Surgeries None recorded. Imaging None recorded. Medication Orders cephalexin [address] [facility] #[id number], [address] [place], [address], 09:59:32 Patient TargetsNo targets recorded. Patient Instructions Encounter Date Encounter Id Patient Instructions Last Modified By Organization Details Last Modified Time 03/17/2023 [id number] cellulitis: care instructions [email or web address] Not available 03/17/2023 09:59:30 Based on your presentation and exam today, I am diagnosing you with cellulitis. I am going to prescribe you and antibiotic to cover this infection. Please be sure to complete the full course of this antibiotic to prevent antibiotic resistance. I suggest with any antibiotic that you take Florastor or another probiotic. This help re-colonize you body with the good bacteria. It might take 3-4 days for the antibiotic to start working - so don't panic if your infection gradually worsens over the next 48 hours before it gets better. The following are my recommendations to help you feel better and aid in resolving this infection: 1. No creams or lotions on the affected area - so no Antibiotic ointment. 2. Warm Epsen Salt Soaks - 2 or 3 x daily. This will help move the infection to the surface of the skin. 3. Take Ibuprofen or Tylenol if you do not have any allergies to these medications. If you take a blood thinner you should not take NSAIDS like Ibuprofen. These medication will help with the inflammation in your respiratory tract which should help the cough. 4. Do no squeeze or pick at the area. This can worsen the infection. The following are warning signs to look out for that would suggest the infection is worsening. This would mean you should be seen again: 1. Fever > 100.5 2. Redness is spreading to double the size in 24 hours 3. Increased swelling and pain. 4. Inability to move a joint 5. Swollen lymph nodes that are tender Thank you for using [facility] today, please don't hesitate to call or reach out to us if you have any questions or concerns. Not available 03/17/2023 09:59:29 Reason for Referral None Reported. Problems Name Problem SNOMED Code Status Onset Date Resolution Date Notes Provider Name and Address Organization Details Recorded Time Hypertensive disorder 19094998 Active 2022 COREY DEPINTO null, [place] - [facility] 3 09:33:48 Gastroesophage al reflux disease 230921001 Active 2022 COREY DEPINTO null, [place] - [facility] 3 09:34:00 Anemia 778702993 Active 2022 COREY DEPINTO null, [place] - [facility] 3 09:34:35 Notes:enlarged uterus Problem Notes None recorded. Medical Equipment None Reported. Allergies Allergen ID Allergen Name Allergen Category Reaction Reaction Severity Criticality Documentation Date Start Date Code Code System Note Provider Name and Address Organization Details Recorded Time 542275 pravastat in medicatio n myalgias (muscle pain) Not available Not available 03/17/2023 67565 RxNorm COREY DEPINTO null, [place] - [facility] 3 09:31:32 Medications Name Sig Start Date Stop Date Status Note LastModified by Organization Details LastModified Time medroxyprog esterone 10 mg tablet TAKE 1 TABLET DAILY FOR 10 DAYS,STAR T FROM DAY 15-24 CYCLICALL Y EVERY MONTH,DAY 1= 1ST DAY OF MENSES active Not Available Not Available No t Available Vitamin C 500 mg tablet TAKE 1 TABLET BY MOUTH TWICE DAILY active Not Available Not Available No t Available amlodipine 5 mg tablet TAKE 1 TABLET BY MOUTH EVERY DAY active Not Available Not Available No t Available oxycodone-a cetaminophe n 5 mg-325 mg tablet TAKE 1 TABLET BY MOUTH EVERY 6 HOURS NEEDED FOR PAIN 03/17 completed Not Available Not Available Not Available famotidine 20 mg tablet TAKE 1 TABLET BY MOUTH ORALLY EVERY MORNING FOR 30 DAYS active Not Available Not Available No t Available cephalexin 500 mg capsule Take 1 capsule 4 times a day by oral route. 2022 active Not Available Not Available Not Avai lable ferrous sulfate 325 mg (65 mg iron) tablet TAKE 1 TABLET BY MOUTH TWICE DAILY active Not Available Not Available No t Available ibuprofen 400 mg tablet TAKE 1 TABLET BY MOUTH EVERY 6 HOURS NEEDED FOR PAIN active Not Available Not Available No t Available clotrimazol e 1 % topical cream APPLY TO AFFECTED AREA TWICE A DAY NEEDED TINEA PEDIS 03/17 completed Not Available Not Available Not Available loratadine 10 mg tablet TAKE 1 TABLET BY MOUTH ONCE DAILY active Not Available Not Available No t Available hydrochloro thiazide 12.5 mg tablet TAKE 1 TABLET BY MOUTH EVERY MORNING 03/17 completed Not Available Not Available Not Available Vitals Date Recorded Body height Body mass index (BMI) Body weight Oxygen saturation Oxygen saturation in Arterial blood by Pulse oximetry Heart rate Respiratory rate Body temperature Systolic blood pressure Diastolic blood pressure Provider Name and Address Organization Details Last Updated DateTime 3 144.78 cm 26.4 kg/m2 34346.2 7 g 99 % 99 % 66 /min 18 /min 97.9 [degF] 141 mm[Hg] 91 mm[Hg] COREY Godoy [facility] 09:36:30 Social History Question Answer Notes LastModified by Organizat ion Details LastModified Time Tobacco Smoking Status Never Smoker [facility]ENETTA Flynn [facility] 03/17/2023 09:35:02 What Is Your Level Of Alcohol Consumption? Occasional Information not available 03/17/2023 How Many Times Per Week Do You Consume Alcohol? Less Than 1 Time Per Week Information not available 03/17/2023 Do You Use Any Illicit Or Recreational Drugs? No Information not available 03/17/2023 Have You Recently Traveled Abroad? No Information not available 03/17/2023 Do You Or Have You Ever Used Any Other Forms Of Tobacco Or Nicotine? No Information not available 03/17/2023 Sex: Unknown Functional Status None recorded. Mental Status None recorded. Family History Relationship Description Onset Age of this Age Resolved Age Notes LastModified by Organization Details LastModified Time Father No current problems or disability Not available 03/17 09:34:48 Mother No current problems or disability Not available 03/17 09:34:48 Medical History No medical history recorded. Gynecological History Statement/Question Response Date of LMP 02/18/2023 Is there any chance of ? No LMP Definite Obstetrics History GPAL:G 0 P 0 0 0 0 Immunizations Vaccine Type Date Status Note Provider Nam e and Address Organization Details Recorded Time COVID-19, mRNA, LNP-S, PF, 30 mcg/0.3 mL dose 05/28/2021 completed RENETTA Flynn [facility] 03/17/2023 09:31:17 COVID-19, mRNA, LNP-S, PF, 30 mcg/0.3 mL dose 06/18/2021 completed RENETTA Flynn - [facility] 03/17/2023 09:31:17 Past Encounters Encounter ID Performer Location Encounter Start Date Encounter Closed Date Diagnosis/Indication Diagnosis SNOMED-CT Code Diagnosis ICD10 Code Diagnosis Note [id number] [address] [facility] [place] [address] 12/20/2020 15:19:12 12/20/2020 17:15:25 [id number] [address] [facility] [place] [address] 12/23/2018 10:16:14 12/23/2018 11:14:51 [id number] RENETTA SORIA [address] [facility] [place] [address] 03/17/2023 08:33:26 03/17/2023 10:00:05 Cellulitis 107273341 L03.90 Health Concerns Section Related Observation LastModified by Organization Detai ls LastModified Time None Recorded Concern Status LastModified by Organization Details LastModified Time None Recorded Advance Directives Directive None Recorded Payers Encounter Date Sequence Insurance Name Policy Number Policy Dooley Covered Member ID Dooley Member ID Guarantor Name 12/20/2020 1 [facility] [id number] Markel Garcia [id number] Markel Garcia 03/17/2023 1 [facility] [id number] Markel Garcia [id number] Markel Garcia Notes Date Note Type Note Provider Name and Address Organization Details Recorded Time 03/17/2023 text/html Skin Redness UCReported bypatient.Locatio n:right arm Quality:painful;e rythematous Severity:mild Duration:2 days Onset:gradual onset Symptoms:no fever; no nausea; no vomiting; no swellingNotes:The patient reports she got bit by a mosquito yesterday on the arm. The patient states that it was ok but she woke up this morning with a large red area. Today it has worsened and now it is hot. No pain just mild burning. Skin is not raised. No rashes just redness. No creams or lotions. No benedryl. She reports that she has not had MRSA. RENETAT SORIA [address] [place], [address], [place] - [facility] 03/18/2023 18:58:17 OBGyn Episode No OBEpisode recorded.
== END ==
LOC: HO.SL 08:03
PROVIDERS: PCP Internal Medicine; Visit Provider Internal Medicine
DX: G47.33 Obstructive sleep apnea (adult) (pediatric) (principal); R40.0 Somnolence; R06.83 Snoring
CPT/HCPCS: 95806

== ENCOUNTER → 2024-09-20 08:16 | Outpatient (BNV) | payer OTHER, SELFPAY | PROVIDERS: PCP Internal Medicine; Visit Provider Internal Medicine | DX: G47.33 Obstructive sleep apnea (adult) (pediatric) (principal) | CPT/HCPCS: 95806 ==

== ENCOUNTER 2024-10-10 09:51 | Outpatient (AMB) | payer OTHER, SELFPAY ==
--- NOTE | 2024-10-10 09:54 | A.OFFVIS_ITS ---
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 Sewing Machine Operator Required: No Allergies pravastatin Adverse Reaction (Unknown, Verified 10/10/24 10:24) myalgias Medication List - Last Reconciled 10/10/24 by Jamshid Parry MD amlodipine 5 mg PO DAILY 90 days CPAP As directed famotidine 20 mg PO DAILY loratadine 10 mg PO DAILY PRN medroxyprogesterone (Provera) 10 mg PO DAILY 10 days multivitamin 1 tab PO DAILY Ventolin HFA 90 mcg/actuation (albuterol sulfate) 2 puffs inhalation Q4-6H PRN 30 days NS Do you need a note to return to daycare/school/sports/work: No HPI HPI sleep apnea: Details: 44 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 SHE HAS HISTORY OF LOUD SNORING AT NIGHT FOR QUITE A FEW YEARS, BUT IT WAS WORSE IN THE LAST 2 YEARS. HER FAMILY MEMBERS ALSO DESCRIBES THAT SHE DOES HAVE SOME GASPING SOUNDS DURING THE NIGHT. SHE GIVES HISTORY OF FREQUENT AWAKENINGS AT NIGHT AND ALSO HAS EXPERIENCED BRAIN FOG AND SLEEPINESS DURING THE MORNING HOURS, MORE PROMINENT IN THE LAST 2 YEARS. SHE DOES NOT HAVE HISTORY OF ANY RECENT WEIGHT GAIN. SHE DOES HAVE SYMPTOMS OF MILD ALLERGIC RHINITIS AND SOMETIMES TIGHT FEELING IN THE CHEST/ MILD ASTHMA AFTER BEING EXPOSED TO CERTAIN PAPER PRODUCTS, PRINTER INK, HOUSEHOLD DUST ETC.. SHE HAS TO USE VENTOLIN INHALER ONCE IN A WHILE. SHE IS NONSMOKER . HER PCP DR. MARIA G MADERA HAS ALREADY ORDERED HOME-BASED SLEEP STUDY, WHICH WAS DONE ON 09/20/2024, AND IT IS POSITIVE FOR RATHER SEVERE OBSTRUCTIVE SLEEP APNEA. PATIENT IS REFERRED FOR MANAGEMENT OF SLEEP APNEA. [facility] Medical History HTN (hypertension) GERD (gastroesophageal reflux disease) Endometrial hyperplasia Hypercholesterolemia Rash due to allergy History of anemia Pure hyperglyceridemia Vitamin D insufficiency Asthma Surgical History History of D&C Family History Paternal Uncle Myocardial infarct Bipolar 1 disorder Mental health disorder Paternal Grandfather Stomach cancer Maternal Grandfather Lung cancer Mother Pancreatic cancer Father Essential hypertension Social History Household Members: Family Housing: Apartment Alcohol intake: current Alcohol intake frequency: holidays/special occasions only Patient Tobacco Use Status: Never used Tobacco e-Cigarette/Vaping Use: Never Used Second Hand Smoke Exposure: No service: No Current occupational status: employed Current occupational exposures/hazards: No Sexual orientation: Straight/Heterosexual Gender identity: Female Cognitive needs: No Hearing needs: No Vision needs: Yes (glasses) Female Reproductive History Menstrual Age of Menarche: 9 Review of Systems Const All systems reviewed & are unremarkable except as noted in HPI and below Reports snoring (Loud) Eyes Reports no additional complaints ENT Reports nasal congestion (Mild intermittent) Card Reports no additional complaints Resp Reports snoring (Loud) and Reports wheezing (Intermittent on exposure to certain kinds of dust and smoke) GI Reports no additional complaints Reports no additional complaints Musc Reports no additional complaints Skin/Breast Reports system reviewed and no additional complaints, except as documented Neuro Reports no additional complaints Psych Reports no additional complaints Endo Reports no additional complaints Aller/Immun Reports wheezing (Intermittent on exposure to certain kinds of dust and smoke) Physical Exam Vital Signs: Last Vital Signs Pulse 75 10/10/24 09:55 BP 140/94 H 10/10/24 09:55 Pulse Ox 97 10/10/24 09:55 Oxygen Delivery Method Room Air 10/10/24 09:55 BMI result Body Mass Index 27.7 Const General: healthy appearing, comfortable, no acute distress, alert and awake Orientation/consciousness: patient oriented x3 HEENT Other: She has 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 Head: Yes normal to inspection General nose exam: No nasal polyps present and No nasal discharge present Face and sinus: Yes sinuses nontender Mouth: oropharynx abnormals (Narrow and crowded, Mallampati class 3) Teeth and gingiva: other (Prominent retrognathia of the lower jaw) Throat: Yes posterior oropharynx normal Eyes General: appearance normal, both eyes and all related structures Neck Neck: Yes normal visual inspection, Yes no lymphadenopathy, Yes trachea midline and Yes no JVD Thyroid: Thyroid normal Chest Chest palpation & inspection: normal inspection of the chest, normal palpation of entire chest wall and no tenderness Resp Effort & Inspection: normal respiratory effort Auscultation: clear to auscultation bilaterally, no crackles and no wheezes Cardio Palpation: normal PMI Rate: regular rate Rhythm: regular rhythm Heart sounds: no gallops and no murmurs Peripheral pulses: Peripheral pulses 2+ throughout GI Palpation (GI): Soft to palpation, nontender, No hepatosplenomegaly present and no masses Auscultation: normal bowel sounds Back/Spine/Pelvis Thoracic/Lumbar Spine: thoracic and lumbar spine normal to inspection Skin General skin exam: no rashes or lesions noted Neuro General: patient oriented x3 and no focal motor deficits Cranial nerves: Yes CN's II-XII intact bilaterally Extrem General: Yes normal to inspection, Yes no clubbing, cyanosis or edema and Yes no calf tenderness Psych Appearance: grossly normal and well kempt Speech and movement: Normal speech and movement present Results Reviewed Results Reviewed: SLEEP STUDY FINDINGS. 09/20/2024, HOME-BASED SLEEP STUDY, TOTAL SLEEP TIME AHI 35.7, . SNORING FOR 3% OF SLEEP TIME O2 SAT BELOW 88% FOR 23 MINUTES. THESE FINDINGS ARE CONSISTENT WITH SEVERE HANNAH AND MILD NOCTURNAL HYPOXEMIA Assessment & Plan Assessment & Plan (1) HANNAH (obstructive sleep apnea): Comment: SHE HAS THE SYMPTOMS AND SLEEP STUDY FINDINGS CONSISTENT WITH SEVERE OBSTRUCTIVE SLEEP APNEA. Code(s): G47.33 - Obstructive sleep apnea (adult) (pediatric) Category: Medical Plan: EDUCATED ABOUT THE REASON FOR HER SLEEP APNEA AND THE TREATMENT PLANNING. SHE WILL BENEFIT FROM USE OF CPAP THERAPY DR. TERENCE GARCIA HAS ALREADY ORDERED THE CPAP, FROM [employer] , RELIABLE . PATIENT WOULD NEED FULLFACE MASK AND AUTO PAP SETTING. WILL WORK WITH HER [employer], AND THEN MONITOR HER COMPLIANCE AND BENEFITS. (2) Nocturnal hypoxemia: Comment: SHE DID HAVE MILD NOCTURNAL HYPOXEMIA BUT THIS IS EXPECTED TO CORRECT BY USE OF CPAP. Code(s): G47.34 - Idiopathic sleep related nonobstructive alveolar hypoventilation Category: Medical Plan: WHEN SHE IS USING CPAP REGULARLY WE CAN DO OVERNIGHT OXIMETRY RECORDING TO MAKE SURE THAT HYPOXEMIA IS CORRECTED (3) Asthma: Comment: SHE GIVES HISTORY OF MILD INTERMITTENT BRONCHIAL ASTHMA, SECONDARY TO EXPOSURE TO SOME TRIGGERS SUCH PAPER DOES, PRINTER INK, OUTSIDE DUST ETC. SHE ALSO HUIZAR S SYMPTOMS OF MILD ALLERGIC RHINITIS AT THE SAME TIME. Code(s): J45.909 - Unspecified asthma, uncomplicated Category: Medical Plan: USE VENTOLIN HFA 1 OR 2 PUFFS Q 4-6 HOURS ONLY P.R.N.. THERE IS NO NEED OF ANY CONTROLLER AGENT. AVOIDANCE TO HER TRIGGERS IS THE BEST APPROACH. Medications: Changed From loratadine 10 mg PO DAILY 90 tabs 3RF 90 days To loratadine 10 mg PO DAILY PRN Coding Level of Care Code New Pt Level 3 (05118) Diagnoses HANNAH (obstructive sleep apnea) G47.33 Nocturnal hypoxemia G47.34 Asthma J45.909
[2024-10-10 09:55] VITALS: BP 140/94; PULSE 75; O2SAT 97; BMI 27.7
--- OUTSIDE RECORDS SUMMARY | 2024-10-10 10:27 | XMS_ITS | Patient Health Record ---
Author Organization [facility] Address [address] [place] [address] Care Team Providers Care Injection Molding Machine Operator Name Role Phone Shanta Arthur Primary Care Provider Kayode Mathew Unavailable [phone] ALLERGIES Allergen (clinical drug ingredient) Drug/Non Drug [...] unspecified whether esophagitis present (K21.9) Active confirmed 831843217 Problem Screening for colon cancer (Z12.11) Active confirmed 598531138 Problem Gastroesophageal reflux disease (K21.9) Active confirmed Gastroesophagea l reflux disease (900998852) PLAN OF TREATMENT Future Test Test Name Order Date UPPER GI ENDOSCOPY 12/03/2022 COLONOSCOPY 12/03/2022 Insurance Providers Payer Name Payer Address Payer Phone Subscriber Number Group Number Insured Name Patient Relationship to Insured Coverage Start Date Coverage End Date [facility] [address] [place] [phone] [id number] JASPER CANO Self - patient is the insured MEDICAL (GENERAL) HISTORY Medical History History ICD Code Denies NE,DM,CVA,Lung disease,renal dise ase Hypertension Hypercholesterolemia GERD Anemia due to her menses-sees Dr. Moses and Dr. Wagner Surgical History Surgery Date(Month/Year)
--- OUTSIDE RECORDS SUMMARY | 2024-10-10 10:27 | XMS_ITS | Data Portability ---
Author Organization RENETTA Corey s, [address] Address [address] [place] [address] Care Team Providers Care Building Code Administrator Name Role Phone TERENCE ARMIJO Primary Care Provider Assessment No assessment recorded. Plan of Treatment Reminders Order Date Submit Date Provider Last Modified By Organization Details Last Modified Time Details Appointments None recorded. Lab None recorded. Referral None recorded. Procedures None recorded. Surgeries None recorded. Imaging None recorded. Medication Orders cephalexin 500 mg capsule 2022 023 [facility]/Pharmacy #[id number], [address] [place], [address], 09:59:32 Patient TargetsNo targets recorded. Patient Instructions Encounter Date Encounter Id Patient Instructions Last Modified By Organization Details Last Modified Time 03/17/2023 [id number] cellulitis: care instructions [email or web address] Not available 03/17/2023 09:59:30 Based on your [...] Address Organization Details Recorded Time Hypertensive disorder 67837439 Active 2022 COREY DEPINTO null, PA - [facility] 3 09:33:48 Gastroesophage al reflux disease 170104602 Active 2022 COREY DEPINTO null, PA - [facility] 3 09:34:00 Anemia 002049754 Active 2022 COREY DEPINTO null, PA - [facility] 3 09:34:35 Notes:enlarged uterus Problem Notes None recorded. Medical Equipment None Reported. Allergies Allergen ID Allergen Name Allergen Category Reaction Reaction Severity Criticality Documentation Date Start Date Code Code System Note Provider Name and Address Organization Details Recorded Time 905807 pravastat in medicatio n myalgias (muscle pain) Not available Not available 03/17/2023 88328 RxNorm [facility]PINTO null, [facility] [...] Not Available Vitals Date Recorded Body height Provider Name an d Address Organization Details Last Updated DateTime 03/17/2023 144.78 cm COREY DEPINTO PA - [facility] 0 03/17/2023 09:30:44 Date Recorded Body mass index (BMI) Body weight Provider Name and Address Organization Details Last Updated DateTime 03/17/2023 26.4 kg/m2 59330.27 g COREY DEPINTO PA - [facility] 03/17/2023 09:30:49 Date Recorded Pain severity - 0-10 verbal numeric rating [Score] - Reported Provider Name and Address Organization Details Last Updated DateTime 03/17/2023 2 COREY DEPINTO PA - [facility] 0 03/17/2023 09:31:07 Date Recorded Oxygen saturation Oxygen saturation in Arterial blood by Pulse oximetry Provider Name and Address Organization Details Last Updated DateTime 03/17/2023 99 % 99 % COREY DEPINTO PA - [facility] 03/17/2023 09:36:32 Date Recorded Heart rate Provider Name an d Address Organization Details Last Updated DateTime 03/17/2023 66 /min COREY HASSAN PA - [facility] 0 03/17/2023 09:36:34 Date Recorded Respiratory rate Provider Name a nd Address Organization Details Last Updated DateTime 03/17/2023 18 /min COREY HASSAN PA - [facility] 0 03/17/2023 09:36:35 Date Recorded Body temperature Provider Name a nd Address Organization Details Last Updated DateTime 03/17/2023 97.9 [degF] COREY HASSAN PA - [facility] 03/17/2023 09:36:39 Date Recorded Systolic blood pressure Diastolic blood pressure Provider Name and Address Organization Details Last Updated DateTime 03/17/2023 141 mm[Hg] 91 mm[Hg] COREY HASSAN PA - [facility] 03/17/2023 09:36:30 Social History Question Answer Notes LastModified by [employer] Details LastModified Time Tobacco Smoking Status Never Smoker COREY HASSAN nazia, PA - [facility] 03/17/2023 09:35:02 What Is Your [...] mcg/0.3 mL dose 05/28/2021 completed RENETTA Flynn [facility] 03/17/2023 09:31:17 COVID-19, mRNA, LNP-S, PF, 30 mcg/0.3 mL dose 06/18/2021 completed RENETTA Flynn [facility] 03/17/2023 09:31:17 Past Encounters Encounter ID Performer Location Encounter Start Date Encounter Closed Date Diagnosis/Indication Diagnosis SNOMED-CT Code Diagnosis ICD10 Code Diagnosis Note [id number] [address] [place] [address] 12/20/2020 15:19:12 12/20/2020 17:15:25 [id number] [address] [facility] [address] 12/23/2018 10:16:14 12/23/2018 11:14:51 [id number] RENETTA SORIA [address] [place] [address] 03/17/2023 08:33:26 03/17/2023 10:00:05 Cellulitis 538083130 L03.90 Health Concerns Section Related Observation LastModified by Organization Detai ls LastModified Time None Recorded Concern Status LastModified by Organization Details LastModified Time None Recorded Advance Directives Directive None Recorded Payers Encounter Date Sequence Insurance Name Policy Number Policy Dooley Covered Member ID Dooley Member ID Guarantor Name 12/20/2020 1 [facility] [id number] Markel Garcia [id number] Markel Garcia 03/17/[address] [place] [address] [id number] Kindra Radha [id number] Markel Garcia Notes Date Note Type Note [...] reports that she has not had MRSA. RENETTA SORIA [address] [place], [address], [place] - [facility] 03/18/2023 18:58:17 OBGyn Episode No OBEpisode recorded.
--- OUTSIDE RECORDS SUMMARY | 2024-10-10 10:28 | XMS_ITS ---
Author Organization [facility] Address [address] [place] [address] Care Team Providers Care Marketing Developer Name Role Phone Shanta Arthur Primary Care Provider Unavailab Kayode Mayer Unavailable [phone] REASON FOR VISIT screening colon PROBLEMS Problem Type ICD Code Onset Dates Problem Status W/U Status Risk SNOMED Code Notes Problem Gastroesophageal reflux disease (K21.9) Active confirmed Gastroesophagea l reflux disease (640259256) Encounters Encounter Location Date Provider Diagnosis [facility] Outpatient [address] [place] [address] [id number] 06/07/2023 Kayode Paz Encounter for screen ing [...]
== END 2024-10-10 10:25 | disposition home or self-care (01) ==
PROVIDERS: PCP Internal Medicine; Visit Provider Internal Medicine
DX: G47.33 Obstructive sleep apnea (adult) (pediatric) (principal); G47.34 Idiopathic sleep related nonobstructive alveolar hypoventilation; J45.909 Unspecified asthma, uncomplicated
CPT/HCPCS: 99213

== ENCOUNTER → 2024-10-10 09:51 | Outpatient (BNVA) | payer OTHER, SELFPAY | PROVIDERS: PCP Internal Medicine; Visit Provider Internal Medicine ==

== ENCOUNTER 2025-01-29 14:03 | Outpatient (AMB) | payer OTHER, SELFPAY ==
--- OUTSIDE RECORDS SUMMARY | 2025-01-29 14:09 | XMS_ITS | Data Portability ---
Author Organization RENETTA Corey s, [address] Address [address] [place] [address] Care Team Providers Care Automotive Parts Counter Assistant Name Role Phone TERENCE ARMIJO Primary Care Provider Assessment No assessment recorded. Plan of Treatment Reminders Order Date Submit Date Provider Last Modified By Organization Details Last Modified Time Details Appointments None recorded. Lab None recorded. Referral None recorded. Procedures None recorded. Surgeries None recorded. Imaging None recorded. Medication Orders cephalexin 500 mg capsule 2022 023 [facility]/Pharmacy #[id number], [address] [place], [address], 09:59:32 Patient TargetsNo targets recorded. Patient Instructions Encounter Date Encounter Id Patient Instructions Last Modified By Organization Details Last Modified Time 03/17/2023 [id number] cellulitis: care instructions Not available 03/17/2023 09:59:30 Based on your [...] if you have any questions or concerns. [email or web address] Not available 03/17/2023 09:59:29 Reason for Referral None Reported. Problems Name Problem SNOMED Code Status Onset Date Resolution Date Notes Provider Name and Address Organization Details Recorded Time Hypertensive disorder 54897276 Active 2022 COREY DEPINTO null, PA - [facility] 3 09:33:48 Gastroesophage al reflux disease 606623674 Active 2022 COREY DEPINTO null, PA - [facility] 3 09:34:00 Anemia 560617403 Active 2022 COREY DEPINTO null, PA - [facility] 3 09:34:35 Notes:enlarged uterus Problem Notes None recorded. Medical Equipment None Reported. Allergies Allergen ID Allergen Name Allergen Category Reaction Reaction Severity Criticality Documentation Date Start Date Code Code System Note Provider Name and Address Organization Details Recorded Time 882613 pravastat in medicatio n myalgias (muscle pain) Not available Not available 03/17/2023 80616 RxNorm C[facility]Y DEPINTO null, [facility] - [facility] [...] Updated DateTime 3 144.78 cm 26.4 kg/m2 92502.2 7 g 99 % 99 % 66 /min 18 /min 97.9 [degF] 141 mm[Hg] 91 mm[Hg] COREY Godoy [employer] [facility] 3 09:36:30 Social History Question Answer Notes LastModified by [employer] Details LastModified Time Tobacco Smoking Status Never Smoker RENETTA Flynn [facility] 03/17/2023 09:35:02 Have You Recently Traveled Abroad? No Information not available 03/17/2023 Sex: Unknown Functional Status Question Answer Note LastModified by [employer] Details LastModified Time How many times per week do you consume alcohol? Less than 1 time per week Information not available 03/17/2023 Do you use any illicit or recreational drugs? No Information not available 03/17/2023 Do you or have you ever used any other forms of tobacco or nicotine? No Information not available 03/17/2023 What is your level of alcohol consumption? Occasional Information not available 03/17/2023 Mental Status None recorded. Family History Relationship [...] mcg/0.3 mL dose 05/28/2021 completed RENETTA Flynn - [facility] 03/17/2023 09:31:17 COVID-19, mRNA, LNP-S, PF, 30 mcg/0.3 mL dose 06/18/2021 completed RENETTA Flynn - [facility] 03/17/2023 09:31:17 Past Encounters Encounter ID Performer Location Encounter Start Date Encounter Closed Date Diagnosis/Indication Diagnosis SNOMED-CT Code Diagnosis ICD10 Code Diagnosis Note [id number] [address] [place] [address] 12/20/2020 15:19:12 12/20/2020 17:15:25 [id number] [address] [place] [address] 12/23/2018 10:16:14 12/23/2018 11:14:51 [id number] RENETTA SORIA [address] [place] [address] 03/17/2023 08:33:26 03/17/2023 10:00:05 Cellulitis 012470808 L03.90 Health Concerns Section Related Observation LastModified by Organization Detai ls LastModified Time None Recorded Concern Status LastModified by Organization Details LastModified Time None Recorded Advance Directives Directive None Recorded Payers Insurance Date Sequence Insurance Name Policy Number Policy Dooley Covered Member ID Dooley Member ID Guarantor Name 03/17/2023 1 [facility] [id number] Markel Garcia [id number] Markel Garcia Notes Date Note Type Note [...] has not had MRSA. RENETTA SORIA [address] [place], [address], [place] - [facility] 03/18/2023 18:58:17 OBGyn Episode No OBEpisode recorded.
--- OUTSIDE RECORDS SUMMARY | 2025-01-29 14:09 | XMS_ITS | Patient Health Record ---
Author Organization [facility] Address [address] [place] [address] Care Team Providers Care Freight Adjuster Name Role Phone Shanta Arthur Primary Care Provider Kayode Mathew Unavailable [phone] Allergies Allergen (clinical drug ingredient) Drug/Non Drug Allergy documented on EMR Reaction Allergy Type Onset Date Status pravastatin Pravastatin Unknown Drug Allergy Act gldays Reason For Referral No Information Medications Medication SIG (Take, Route, Frequency, Duration) Notes [...] MOUTH EVERY DAY Oral for 90 Active Social History Tobacco Use: Social History Observation Description Date Details (start date - stop date) Never Smoker NA - NA Tobacco Use/Smoking Question Answer Notes Patient is [...] Never (0 point) Points 0 Interpretation Negative Problems Problem Type SNOMED Code ICD Code Onset Dates Problem Status W/U Status Risk Notes Problem Gastroesophageal reflux disease (K21.9) Active confirmed Problem 760853638 Screening for co christina cancer (Z12.11) Active confirmed Problem 367016611 Gastroesophageal reflux disease, unspecified whether esophagitis present (K21.9) Active confirmed Plan Of Treatment Future Test Test Name Order Date UPPER GI ENDOSCOPY 12/03/2022 COLONOSCOPY 12/03/2022 Insurance Providers Payer Name Payer Address Payer Phone Subscriber Number Group Number Insured Name Patient Relationship to Insured Coverage Start Date Coverage End Date [facility] [address] [place] [phone] [id number] JASPER CANO Self - patient is the insured Medical (General) History Medical History History ICD Code Denies NH,DM,CVA,Lung disease,renal dise ase Hypertension Hypercholesterolemia GERD Anemia due to her menses-sees Dr. Moses and Dr. Wagner Surgical History Surgery Date(Month/Year)
[2025-01-29 14:13] VITALS: BP 102/72; PULSE 67; O2SAT 98; BMI 28.6
--- NOTE | 2025-01-29 14:13 | A.OFFVIS_ITS ---
Vital Signs 01/29/25 14:13 Height 4 ft 9 in Weight 132 lb 4.438 oz BMI 28.6 BP 102/72 Blood Pressure Location Lt brachial Position Sitting Pulse 67 Pulse Source Pulse Oximeter Pulse Oximetry (%) 98 Oxygen Delivery Method Room Air Intake Visit Reasons: Sleep apnea Intake Note: pt is here for follow up and she is feeling better, breathing is good. 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 SHE LOVES THE CPAP AND IS NOT ABLE TO SLEEP WITHOUT USING IT. WITH THE CPAP SHE IS SLEEPING 7-8 HOURS PER NIGHT. HER WEIGHT IS NOT A BIG ISSUE BUT SHE HAS NOT BEEN ABLE TO LOSE MUCH. SHE DENIES ANY DAYTIME SLEEPINESS. [facility] Medical History HTN (hypertension) GERD (gastroesophageal reflux disease) Endometrial hyperplasia Hypercholesterolemia Rash due to allergy History of anemia Pure hyperglyceridemia Vitamin D insufficiency Asthma Surgical History History of D&C Family History Paternal Uncle Myocardial infarct Bipolar 1 disorder Mental health disorder Paternal Grandfather Stomach cancer Maternal Grandfather Lung cancer Mother Pancreatic cancer Father Essential hypertension Social History Household Members: Family Housing: Apartment Alcohol intake: current Alcohol intake frequency: holidays/special occasions only Patient Tobacco Use Status: Never used Tobacco e-Cigarette/Vaping Use: Never Used Second Hand Smoke Exposure: No service: No Current occupational status: employed Current occupational exposures/hazards: No Sexual orientation: Straight/Heterosexual Gender identity: Female Cognitive needs: No Hearing needs: No Vision needs: Yes (glasses) Female Reproductive History Menstrual Age of Menarche: 9 Review of Systems Const All systems reviewed & are unremarkable except as noted in HPI and below Reports snoring (Loud) Eyes Reports no additional complaints ENT Reports nasal congestion (Mild intermittent) Card Reports no additional complaints Resp Reports snoring (Loud) and Reports wheezing (Intermittent on exposure to certain kinds of dust and smoke) GI Reports no additional complaints Reports no additional complaints Musc Reports no additional complaints Skin/Breast Reports system reviewed and no additional complaints, except as documented Neuro Reports no additional complaints Psych Reports no additional complaints Endo Reports no additional complaints Aller/Immun Reports wheezing (Intermittent on exposure to certain kinds of dust and smoke) Physical Exam Vital Signs: Last Vital Signs Pulse 67 01/29/25 14:13 BP 102/72 01/29/25 14:13 Pulse Ox 98 01/29/25 14:13 Oxygen Delivery Method Room Air 01/29/25 14:13 BMI result Body Mass Index 28.6 Const General: healthy appearing, comfortable, no acute distress, alert and awake Orientation/consciousness: patient oriented x3 HEENT Other: She has 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 Head: Yes normal to inspection General nose exam: No nasal polyps present and No nasal discharge present Face and sinus: Yes sinuses nontender Mouth: oropharynx abnormals (Narrow and crowded, Mallampati class 3) Teeth and gingiva: other (Prominent retrognathia of the lower jaw) Throat: Yes posterior oropharynx normal Eyes General: appearance normal, both eyes and all related structures Neck Neck: Yes normal visual inspection, Yes no lymphadenopathy, Yes trachea midline and Yes no JVD Thyroid: Thyroid normal Chest Chest palpation & inspection: normal inspection of the chest, normal palpation of entire chest wall and no tenderness Resp Effort & Inspection: normal respiratory effort Auscultation: clear to auscultation bilaterally, no crackles and no wheezes Cardio Palpation: normal PMI Rate: regular rate Rhythm: regular rhythm Heart sounds: no gallops and no murmurs Peripheral pulses: Peripheral pulses 2+ throughout GI Palpation (GI): Soft to palpation, nontender, No hepatosplenomegaly present and no masses Auscultation: normal bowel sounds Back/Spine/Pelvis Thoracic/Lumbar Spine: thoracic and lumbar spine normal to inspection Skin General skin exam: no rashes or lesions noted Neuro General: patient oriented x3 and no focal motor deficits Cranial nerves: Yes CN's II-XII intact bilaterally Extrem General: Yes normal to inspection, Yes no clubbing, cyanosis or edema and Yes no calf tenderness Psych Appearance: grossly normal and well kempt Speech and movement: Normal speech and movement present Results Reviewed Results Reviewed: COMPLIANCE REPORT FOR THE LAST 30 NIGHTS IS REVIEWED AND SHE HAS USED 26/30 NIGHTS, 87%. MISSES USING THE CPAP ONLY WHEN SHE IS NOT IN THE HOUSE. AVERAGE USE IT PER NIGHT 7 HOURS 59 MINUTES, SLEEP QUALITY IS EXCELLENT. THERE IS ONLY MINIMAL AIR LEAK. RESIDUAL AHI 0.3 Assessment & Plan Assessment & Plan (1) HANNAH (obstructive sleep apnea): Comment: SHE HAS THE SYMPTOMS AND SLEEP STUDY FINDINGS CONSISTENT WITH SEVERE OBSTRUCTIVE SLEEP APNEA. 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 SHE IS VERY COMPLIANT IN USING THE CPAP, MISSING THE USAGE ONLY IF SHE IS NOT AT HOME. Code(s): G47.33 - Obstructive sleep apnea (adult) (pediatric) Category: Medical Plan: COMMENDED FOR GOOD COMPLIANCE AND ADVISED TO KEEP ON USING THE CPAP REGULARLY (2) Asthma: Comment: SHE GIVES HISTORY OF MILD INTERMITTENT BRONCHIAL ASTHMA, SECONDARY TO EXPOSURE TO SOME TRIGGERS SUCH PAPER DUST, PRINTER INK, OUTSIDE DUST ETC. SHE ALSO HAS SYMPTOMS OF MILD ALLERGIC RHINITIS AT THE SAME TIME. SHE IS ABLE TO AVOID EXPOSURE TO THE ALLERGENS AND HAS NOT NEEDED TO USE THE VENTOLIN FOR ALMOST 6 MONTHS. Code(s): J45.909 - Unspecified asthma, uncomplicated Category: Medical Plan: ADVISED TO KEEP VENTOLIN ON HAND AND USE IT ONLY P.R.N. Coding Level of Care Code Est Pt Level 3 (95272) Diagnoses HANNAH (obstructive sleep apnea) G47.33 Asthma J45.909
== END 2025-01-29 14:53 | disposition home or self-care (01) ==
LOC: HO.HPS 14:04
PROVIDERS: PCP Internal Medicine; Visit Provider Internal Medicine
DX: G47.33 Obstructive sleep apnea (adult) (pediatric) (principal); J45.909 Unspecified asthma, uncomplicated
CPT/HCPCS: 99213

== ENCOUNTER → 2025-01-29 14:03 | Outpatient (BNVA) | payer OTHER, SELFPAY | PROVIDERS: PCP Internal Medicine; Visit Provider Internal Medicine ==

== ENCOUNTER 2025-02-06 07:11 | Outpatient (REF) | payer OTHER, SELFPAY ==
--- OUTSIDE RECORDS SUMMARY | 2025-02-06 07:13 | XMS_ITS | Data Portability ---
Author Organization RENETTA Corey s, [address] Address [address] [place] [address] Care Team Providers Care Traffic Maintenance Supervisor Name Role Phone TERENCE ARMIJO Primary Care Provider Assessment No assessment recorded. Plan of Treatment Reminders Order Date Submit Date Provider Last Modified By Organization Details Last Modified Time Details Appointments None recorded. Lab None recorded. Referral None recorded. Procedures None recorded. Surgeries None recorded. Imaging None recorded. Medication Orders cephalexin 500 mg capsule 2022 023 [facility]/Pharmacy #[id number], [address] [place], [address], 09:59:32 Patient TargetsNo targets recorded. Patient Instructions Encounter Date Encounter Id Patient Instructions Last Modified By Organization Details Last Modified Time 03/17/2023 [id number] cellulitis: care instructions [email or web address] Not available 03/17/2023 09:59:30 Based on your [...] if you have any questions or concerns. [email or web address] Not available 03/17/2023 09:59:29 Reason for Referral None Reported. Problems Name Problem SNOMED Code Status Onset Date Resolution Date Notes Provider Name and Address Organization Details Recorded Time Hypertensive disorder 88225846 Active 2022 COREY DEPINTO null, PA - [facility] 3 09:33:48 Gastroesophage al reflux disease 515305386 Active 2022 COREY DEPINTO null, PA - [facility] 3 09:34:00 Anemia 239749084 Active 2022 COREY DEPINTO null, PA - [facility] 3 09:34:35 Notes:enlarged uterus Problem Notes None recorded. Medical Equipment None Reported. Allergies Allergen ID Allergen Name Allergen Category Reaction Reaction Severity Criticality Documentation Date Start Date Code Code System Note Provider Name and Address Organization Details Recorded Time 350198 pravastat in medicatio n myalgias (muscle pain) Not available Not available 03/17/2023 39367 RxNorm C[facility] DEPINTO null, [facility] [...] Heart rate Respiratory rate Body temperature Systolic And Diastolic Provider Name and Address Organization Details Last Updated DateTime 3 144.78 cm 26.4 kg/m2 84932.2 7 g 99 % 99 % 66 /min 18 /min 97.9 [degF] 141/91 mm[Hg] COREY Godoy [facility] 3 09:36:30 Social History Question Answer Notes LastModified by [employer] Details LastModified Time Tobacco Smoking Status Never Smoker RENETTA Flynn [facility] 03/17/2023 09:35:02 Have You Recently Traveled Abroad? No Information not available 03/17/2023 Sex: Unknown Functional Status Question Answer Note LastModified by [employer] Details LastModified Time How many times per [...] PF, 30 mcg/0.3 mL dose 05/28/2021 completed COREYSterling mandujano PA - [facility] 03/17/2023 09:31:17 COVID-19, mRNA, LNP-S, PF, 30 mcg/0.3 mL dose 06/18/2021 completed COREY DEPMIGUELINAO null PA - [facility] 03/17/2023 09:31:17 Past Encounters Encounter ID Performer Location Encounter Start Date Encounter Closed Date Diagnosis/Indication Diagnosis SNOMED-CT Code Diagnosis ICD10 Code Diagnosis Note [id number] [address] [place] [address] 12/20/2020 15:19:12 12/20/2020 17:15:25 [id number] [address] [place] [address] 12/23/2018 10:16:14 12/23/2018 11:14:51 [id number] [address]TA SORIA [address] [place] [address] 03/17/2023 08:33:26 03/17/2023 10:00:05 Cellulitis 809238270 L03.90 Health Concerns Section Related Observation LastModified by Organization Detai ls LastModified Time None Recorded Concern Status LastModified by Organization Details LastModified Time None Recorded Advance Directives Directive None Recorded Payers Insurance Date Sequence Insurance Name Policy Number Policy Dooley Covered Member ID Dooley Member ID Guarantor Name 03/17/2023 1 [facility] [id number] Markel Garcia [id number] Markel Garcia Notes Date Note Type Note [...] has not had MRSA. RENETTA SORIA [address] [place], [address], [place] - [facility] 03/18/2023 18:58:17 OBGyn Episode No OBEpisode recorded.
[2025-02-06 09:04] LABS: Alanine Aminotransferase 25 U/L (0-31); Alkaline Phosphatase 84 U/L (39-117); Anion Gap 13 (12-20); Aspartate Amino Transferase 26 U/L (5-31); Bilirubin Total 0.2 mg/dL (0.0-1.0); Blood Urea Nitrogen 11 mg/dL (9-16); Calcium 8.7 mg/dL (8.4-10.2); Carbon Dioxide 22 mmol/L (22-29); Chloride 109 mmol/L (96-108); Cholesterol 216 mg/dL (<200); Estimated Glomerular Filt Rate > 60; Glucose Fasting 93 mg/dL (60-99); HDL Cholesterol 75 mg/dL (>40); LDL Cholesterol Calculated 112 mg/dL (<100); Potassium 4.6 mmol/L (3.3-5.1); Sodium 139 mmol/L (135-145); Total Protein 7.3 g/dL (6.5-8.0); Triglycerides 146 mg/dL (<150)
== END 2025-02-06 07:12 | disposition home or self-care (01) ==
LOC: HO.LAB 07:11
PROVIDERS: PCP Internal Medicine; Visit Provider Internal Medicine
DX: E78.5 Hyperlipidemia, unspecified (principal); I10 Essential (primary) hypertension
CPT/HCPCS: 36415; 80053; 80061

== ENCOUNTER 2025-02-07 07:29 | Outpatient (AMB) | payer OTHER, SELFPAY ==
--- OUTSIDE RECORDS SUMMARY | 2025-02-07 07:32 | XMS_ITS | Data Portability ---
Author Organization RENETTA Corey s, [address] Address [address] [place] [address] Care Team Providers Care Nurse Transplant Name Role Phone TERENCE ARMIJO Primary Care Provider Assessment No assessment recorded. Plan of Treatment Reminders Order Date Submit Date Provider Last Modified By Organization Details Last Modified Time Details Appointments None recorded. Lab None recorded. Referral None recorded. Procedures None recorded. Surgeries None recorded. Imaging None recorded. Medication Orders cephalexin [address] [facility] ([place], [place]Pharmacy #[id number], [address] [place], [address], 09:59:32 Patient TargetsNo targets recorded. Patient Instructions Encounter Date Encounter Id Patient Instructions Last Modified By Organization Details Last Modified Time 03/17/2023 [id number] cellulitis: care instructions [email or web address] Not available 03/17/2023 09:59:30 Based on your [...] if you have any questions or concerns. [email or web address] Not available 03/17/2023 09:59:29 Reason for Referral None Reported. Problems Name Problem SNOMED Code Status Onset Date Resolution Date Notes Provider Name and Address Organization Details Recorded Time Hypertensive disorder 04181199 Active 2022 COREY DEPINTO null, [place] - [facility] 3 09:33:48 Gastroesophage al reflux disease 879801152 Active 2022 COREY DEPINTO null, PA - [facility] 3 09:34:00 Anemia 565544493 Active 2022 COREY DEPINTO null, PA - [facility] 3 09:34:35 Notes:enlarged uterus Problem Notes None recorded. Medical Equipment None Reported. Allergies Allergen ID Allergen Name Allergen Category Reaction Reaction Severity Criticality Documentation Date Start Date Code Code System Note Provider Name and Address Organization Details Recorded Time 061194 pravastat in medicatio n myalgias (muscle pain) Not available Not available 03/17/2023 08124 RxNorm [facility], [facility] [...] Updated DateTime 3 144.78 cm 26.4 kg/m2 30124.2 7 g 99 % 99 % 66 /min 18 /min 97.9 [degF] 141 mm[Hg] 91 mm[Hg] COREY Godoy [employer] [facility] 3 09:36:30 Social History Question Answer Notes LastModified by [employer] Details LastModified Time Tobacco Smoking Status Never Smoker RENETTA Flynn [facility] 03/17/2023 09:35:02 Have You Recently Traveled Abroad? No Information not available 03/17/2023 Sex: Unknown Functional Status Question Answer Note LastModified by [employer] Details LastModified Time How many times per [...] SNOMED-CT Code Diagnosis ICD10 Code Diagnosis Note [id number] [address] [place] [address] 12/20/2020 15:19:12 12/20/2020 17:15:25 [id number] [address] [place] [address] 12/23/2018 10:16:14 12/23/2018 11:14:51 [id number] RENETTA SORIA [address] [place] [address] 03/17/2023 08:33:26 03/17/2023 10:00:05 Cellulitis 525389636 L03.90 Health Concerns Section Related Observation LastModified by Organization Detai ls LastModified Time None Recorded Concern Status LastModified by Organization Details LastModified Time None Recorded Advance Directives Directive None Recorded Payers Insurance Date Sequence Insurance Name Policy Number Policy Dooley Covered Member ID Dooley Member ID Guarantor Name 03/17/2023 1 [facility] [id number] Markel Garcia [id number] Markel Garcia Notes Date Note Type Note [...] MRSA. RENETTA SORIA [address] [place], [address], [place] - [facility] 03/18/2023 18:58:17 OBGyn Episode No OBEpisode recorded.
[2025-02-07 07:36] VITALS: BP 136/82; BMI 28.3
--- NOTE | 2025-02-07 07:36 | A.OFFPC_ITS ---
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 Accompanied by: Self / Same As Patient Allergies pravastatin Adverse Reaction (Unknown, Verified 02/07/25 07:58) myalgias Medication List - Last Reconciled 02/07/25 by Shanta Garcia MD CPAP As directed famotidine 20 mg PO DAILY loratadine 10 mg PO DAILY PRN losartan 25 mg PO DAILY 90 days multivitamin 1 tab PO DAILY Ventolin HFA 90 mcg/actuation (albuterol sulfate) 2 puffs inhalation Q4-6H PRN 30 days NS Tobacco use date assessed: 02/07/25 Dental Screening Dental Screen Date: 02/07/25 Did you have a dental visit in the last 12 months?: Yes Did you have a dental problem in the last 6 months where you did not have access to dental care?: No Was dental information given to patient?: Patient has dentist HPI HPI Comments History of Present Illness Details The patient is a 44-year-old female presenting for her annual physical examination and health maintenance. 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 Her medical history includes a dilation and curettage (D&C) procedure, and she is under regular surveillance for a pre-cancerous condition with biopsies. She has a history of hyperlipidemia, currently showing improved cholesterol levels. Pravastatin was previously prescribed but discontinued due to muscle pain. Her hypertension is under control. The patient manages obstructive sleep apnea with a CPAP machine and takes multiple medications, including famotidine, loratadine, losartan, multivitamins, and an inhaler used sparingly. She denies smoking and reports infrequent alcohol consumption. She is experiencing worsening finger weakness, affecting strength-dependent movements, and is considering surgical options. To manage symptoms, she is advised to stay hydrated, limit salt intake, and elevate her feet. - Annual mammogram was conducted last , with an appointment scheduled for this year. - Up to date with Papanicolaou test; reg ular biopsies due to pre-cancerous condition. - Colonoscopy performed last year with a 10-year follow-up recommended. - Cholesterol levels have improved, now at 16. - Dtap vaccine required. [facility] Medical History (Updated 02/07/25 @ 08:09 by Shanta Garcia MD) HTN (hypertension) GERD (gastroesophageal reflux disease) Endometrial hyperplasia Hypercholesterolemia Rash due to allergy History of anemia Pure hyperglyceridemia Vitamin D insufficiency Asthma Surgical History History of D&C Family History Paternal Uncle Myocardial infarct Bipolar 1 disorder Mental health disorder Paternal Grandfather Stomach cancer Maternal Grandfather Lung cancer Mother Pancreatic cancer Father Essential hypertension Social History (Updated 02/07/25 @ 08:04 by Shanta Garcia MD) Household Members: Family Housing: Apartment Alcohol intake: current Alcohol intake frequency: a few times a month Patient Tobacco Use Status: Never used Tobacco e-Cigarette/Vaping Use: Never Used Second Hand Smoke Exposure: No service: No Current occupational status: employed Current occupational exposures/hazards: No Sexual orientation: Straight/Heterosexual Gender identity: Female Cognitive needs: No Hearing needs: No Vision needs: Yes (glasses) Female Reproductive History Menstrual Age of Menarche: 9 Questionnaire PHQ-9 Over the last 2 weeks, how often have you been bothered by any of the following problems? 1. Little interest or pleasure in doing things: not at all 2. Feeling down, depressed, or hopeless: not at all 3. Trouble falling or staying asleep, or sleeping too much: not at all 4. Feeling tired or having little energy: not at all 5. Poor appetite or overeating: not at all 6. Feeling bad about yourself - or that you are a failure or have let yourself or your family down: not at all 7. Trouble concentrating on things, such as reading the newspaper or watching television: not at all 8. Moving or speaking so slowly that other people could have noticed. Or the opposite - being so fidgety or restless that you have been moving around a lot more than usual: not at all 9. Thoughts that you would be better off or of hurting yourself in some way: not at all Total score: 0 Depression Screening Interpretation: Negative Depression Screening Done: Yes 93020 - PHQ-9 Billing: Yes Source: Developed by Drs. Kayode Waite, Glo Schwab, Demarcus Yi and colleagues, with an educational renee from [employer]. Thrive Questionnaire Date Thrive assessed: 02/07/25 I am a: Patient What is your living situation today?: I have a steady place to live Within the past 12 months, did the food you bought not last and you didn't have the money to get more?: Never true Within the past 12 months, did you worry whether your food would run out before you got money to buy more?: Never true Do you have trouble paying for medicines?: No Do you have trouble getting transportation to medical appointments?: No Do you have trouble paying your heating and electricity bill?: No Do you have trouble taking care of your child, family member or friend?: No Do you have trouble with day-to-day activities such as bathing, preparing meals, shopping, managing finances, etc.?: No Are you currently unemployed and looking for a job?: No Are you interested in more education?: No Please select the resources that you would like help with: None Currently or been in a relationship where the following occur: No concerns reported THRIVE Score: 0 AUDIT C Alcohol Use Questionnaire (AUDIT-C) 1. How often do you have a drink containing alcohol?: 2-4 times a month 2. How many drinks containing alcohol do you have on a typical day when you are drinking?: 3 or 4 3. How often do you have six or more drinks on one occasion?: Never Total Score: 3 Score Reviewed/Action Taken: No SHAYY-7 AMB Questionnaire SHAYY-7 Date SHAYY - 7 assessed: 02/07/25 Feeling nervous, anxious, or on edge: 0 = Not at all Not being able to stop or control worryin = Not at all Worrying too much about different things: 0 = Not at all Trouble relaxin = Not at all Being so restless that it is hard to sit still: 0 = Not at all Becoming easily annoyed or irritable: 0 = Not at all Feeling afraid as if something awful might happen: 0 = Not at all Total SHAYY-7 score (0-4 normal; 5-9 mild; 10-14 moderate; 15-21 severe): 0 Source: Developed by Drs. Kayode Waite, Glo Schwab, Demarcus Yi and colleagues, with an educational renee from [employer]. SHAYY-7 Assessment Billing SHAYY-7 Assessment Tool: SHAYY-7 Assessment 00602 Review of Systems Const All systems reviewed & are unremarkable except as noted in HPI and below Card Denies chest pain at rest, Denies chest pain with activity, Denies edema, Denies irregular heart rhythm, Denies claudication, Denies dyspnea, Denies dyspnea on exertion, Denies orthopnea, Denies paroxysmal nocturnal dyspnea and Denies slow heart rate Resp Denies cough, Denies dyspnea and Denies dyspnea on exertion GI Denies abdominal pain, Denies change in bowel habits, Denies excessive flatus, Denies nausea and Denies vomiting Denies urinary incontinence, Denies urinary hesitancy and Denies urinary urgency Musc Reports arthralgias and Reports numbness Skin/Breast Denies bleeding lesions, Denies changing lesions and Denies rash Neuro Denies behavioral changes, Denies lack of coordination and Reports numbness Psych Denies behavioral changes Physical exam (Primary Care) Vital Signs: Last Vital Signs BP 136/82 02/07/25 07:36 BMI result Body Mass Index 28.3 Tobacco/Smoking Status: Tobacco use Status Tobacco use date assessed 02/07/25 02/07/25 07:42 Patient Tobacco Use Status Never used Tobacco 02/07/25 08:04 e-Cigarette/Vaping Use Never Used 02/07/25 08:04 PHQ-9: PHQ-9 Score PHQ-9: Total score 0 02/07/25 08:12 Depression Screening Interpretation: Negative Thrive Assessment: Date of Thrive Assessment Date Thrive assessed 02/07/25 02/07/25 07:42 Currently or been in a relationship where the following occur: No concerns reported [facility] Head: Yes normal to inspection, Yes normocephalic and Yes atraumatic Ears: external ears normal Eyes General: appearance normal, both eyes and all related structures Eyelids: Yes eyelids normal Conjunctivae: conjunctivae normal Neck Neck: Yes normal visual inspection and Yes supple Resp Effort & Inspection: normal respiratory effort Auscultation: clear to auscultation bilaterally Cardio Jugular venous distension: no JVD Rate: regular rate Rhythm: regular rhythm Heart sounds: S1 normal heart sound present and S2 normal heart sound present GI Inspection: Yes normal to inspection Palpation (GI): Soft to palpation and nontender Auscultation: normal bowel sounds Skin General skin exam: no rashes or lesions noted Neuro General: no focal motor deficits Extrem General: Yes full ROM Psych Appearance: grossly normal Immunizations Boostrix Tdap 2.5 Lf unit-8 mcg-5 Lf/0.5 mL intramuscular syringe Performing Provider: Shanta Garcia MD Performing Location: [facility] Administered by: SANTOS aBez on 02/07/25 08:13 Dose Route Admin Location Dispensed Lot Number Expiration Date [employer] 0.5 mL IM Left Deltoid 0.5 mL [id number] 05/09/27 [id number] Algorithmia VIS Given Date VIS Provided VIS Publication Date 02/07/25 Single Vaccine 24 Eligibility Eligibility Date Funding Source Not [facility] Eligible 02/07/25 Private Coding Level of Care Code Est Pt Level 3 (72438) Est Pt Prev Care 40-64y(19849) Diagnoses Physical exam Z00.00 Bilateral carpal tunnel syndrome G56.03 Additional Codes SHAYY-7 Assessment Billing - SHAYY-7 Assessment Tool: SHAYY-7 Assessment 62261 ([id number]) PHQ-9 - 09222 - PHQ-9 Billing: Yes ([id number]) Time Spent (min) 35 Assessment & Plan Assessment & Plan (1) Physical exam: Comment: Hx of pap and biopsy in 09/2020. Last exam 2 years ago, due. Last dental exam 4 years ago, due. COVID IZ X 2. Declines flu for now. Pt missed her mammogram since she was in [place]. She will call to r/s. Pt missed her abdominal US for elevated LFT's. She will call to r/s. PPD today. Pt to get labs done, as well. Code(s): Z00.00 - Encounter for general adult medical examination without abnormal findings Category: Medical (2) Bilateral carpal tunnel syndrome: Code(s): G56.03 - Carpal tunnel syndrome, bilateral upper limbs Category: Medical Plan I will address the patient's menopause-related weight gain with lifestyle modifications. Hypertension and hyperlipidemia management will continue with current strategies, avoiding pravastatin due to muscle pain. I will monitor her obstructive sleep apnea treatment with CPAP. For finger weakness, surgical options will be considered if symptoms persist. Health maintenance includes a Dtap vaccine and staying current with screenings. I will continue surveillance for her pre-cancerous condition. Patient was informed and verbally consented to the use of an ambient scribe for clinic note documentation during this visit. During the visit, I discussed the patient's menopause-related weight gain and the importance of lifestyle changes. I reviewed her controlled hypertension and hyperlipidemia management, noting the improved cholesterol levels. We addressed the pravastatin-induced myalgia and the need to avoid this medication. The patient's obstructive sleep apnea management with CPAP was confirmed, and her finger weakness was discussed with potential surgical options. I emphasized the importance of hydration, reduced salt intake, and foot elevation to manage symptoms. I ensured she would receive the Dtap vaccine and remain current with her mammogram and colonoscopy schedules. The pre-cancerous condition will require ongoing surveillance with regular biopsies. Orders: Orders Mumps Virus IgG Antibody Today Z23 - Encounter for immunization XR chest 2V Today R76.11 - Nonspecific reaction to tuberculin skin test without active tuberculosis NE nerve conduction velocity Today G56.03 - Carpal tunnel syndrome, bilateral upper limbs NE electromyogram (EMG) Today G56.03 - Carpal tunnel syndrome, bilateral upper limbs TDaP Immunization Today Z23 - Encounter for immunization T Spot TB Today Z11.1 - Encounter for screening for respiratory tuberculosis Rubeola IgG (Measles) Today Z23 - Encounter for immunization Rubella IgG Antibody Today Z23 - Encounter for immunization Referrals Orthopedics Referral G56.03 - Carpal tunnel syndrome, bilateral upper limbs Patient Instructions: - Follow a balanced diet and increase physical activity to manage weight. - Continue current medication regimen, avoiding pravastatin. - Use CPAP machine as directed. - Stay hydrated, reduce salt intake, and elevate feet regularly. - Schedule and attend upcoming mammogram and colonoscopy appointments. - Receive the Dtap vaccine as discussed. - Monitor finger weakness and discuss any changes or worsening symptoms.
== END 2025-02-07 08:12 | disposition home or self-care (01) ==
LOC: HO.HMCH 07:30
PROVIDERS: PCP Internal Medicine; Visit Provider Internal Medicine
DX: Z00.00 Encounter for general adult medical examination without abnormal findings (principal); G56.03 Carpal tunnel syndrome, bilateral upper limbs; Z23 Encounter for immunization

== ENCOUNTER 2025-02-07 08:18 | Outpatient (REF) | payer OTHER, SELFPAY ==
--- NOTE | ~2025-02-07 | XR_ITS ---
EXAMINATION: XR CHEST CLINICAL INFORMATION: R76.11 - Nonspecific reaction to tuberculin skin test without active tub... COMPARISON: 01/14/2024. TECHNIQUE: 2 views of the chest were obtained. FINDINGS: The cardiac, hilar, and mediastinal contours are normal. The lungs are clear bilaterally. There is no pneumothorax or pleural effusion. There is no focal osseous or soft tissue abnormality. XR/XR chest 2V IMPRESSION: Normal chest. Electronically signed by: Fer Aviles MD 02/07/2025 10:12 AM EDT
--- NOTE | ~2025-02-07 | MM_ITS ---
EXAMINATION: MM SCREENING DIGITAL BREAST TOMOSYNTHESIS, BILATERAL CLINICAL INFORMATION: Screening. Asymptomatic. COMPARISON: Mammography: Comparison is made with available priors TECHNIQUE: Digital breast mammography with tomosynthesis is performed in both the craniocaudal and mediolateral oblique views along with computer-aided detection (CAD). FINDINGS: The breasts are heterogeneously dense, which may obscure small masses (ACR BI-RADS breast composition Category c). There are no significant masses, abnormal calcifications, or other abnormalities. MM/MM tomosynthesis screening BI IMPRESSION: No mammographic evidence of malignancy. ASSESSMENT: BI-RADS BI-RADS 1 - Negative RECOMMENDATION: Routine annual mammography screening. 1 year F/U This examination should not preclude the clinical evaluation of a suspicious palpable abnormality. This patient's information was entered into a reminder system with a target due date for their next mammogram. Electronically signed by: Latasha Pena DO 02/11/2025 08:39 PM EDT
[2025-02-08 04:54] LABS: Rubella IgG Antibody 5.21 Index
[2025-02-10 15:28] LABS: TS Negative Control Passed; TS Panel A 4; TS Panel B 5; TS Positive Control Passed; TSpotTB Borderline (Negative)
== END 2025-02-07 08:19 | disposition home or self-care (01) ==
LOC: HO.MAMMO 08:18
PROVIDERS: PCP Internal Medicine; Visit Provider Internal Medicine
DX: Z00.00 Encounter for general adult medical examination without abnormal findings (principal); Z23 Encounter for immunization; G56.03 Carpal tunnel syndrome, bilateral upper limbs; R76.11 Nonspecific reaction to tuberculin skin test without active tuberculosis; Z11.1 Encounter for screening for respiratory tuberculosis; Z12.31 Encounter for screening mammogram for malignant neoplasm of breast
CPT/HCPCS: 36415; 71046; 77063; 77067; 86481; 86735; 86762; 86765; 90471; 90715; 96127

== ENCOUNTER → 2025-02-07 09:38 | Outpatient (BNV) | payer OTHER, SELFPAY | PROVIDERS: PCP Internal Medicine; Visit Provider Radiology Diagnostic Radiology | DX: R76.11 Nonspecific reaction to tuberculin skin test without active tuberculosis (principal) | CPT/HCPCS: 71046 ==

== ENCOUNTER 2025-03-27 08:07 | Outpatient (REF) | payer OTHER, SELFPAY ==
--- NOTE | 2025-03-27 08:09 | EMG_ITS ---
Please see the attached neurophysiology report MTDD
--- OUTSIDE RECORDS SUMMARY | 2025-03-27 08:09 | XMS_ITS | Patient Health Record ---
Author Organization [facility] Address [address] [place] [address] Care Team Providers Care Machine Presser Name Role Phone Shanta Arthur Primary Care Provider Kayode Mathew Unavailable [phone] Allergies Allergen (clinical drug ingredient) Drug/Non Drug Allergy documented on EMR Reaction Allergy Type Onset Date Status pravastatin Pravastatin Unknown Drug Allergy Act gladys Reason For Referral No Information Medications Medication [...] Gastroesophageal reflux disease (K21.9) Active confirmed Problem 619627401 Screening for co christina cancer (Z12.11) Active confirmed Problem 013799727 Gastroesophageal reflux disease, unspecified whether esophagitis present (K21.9) Active confirmed Plan Of Treatment Future Test Test Name Order Date UPPER GI ENDOSCOPY 12/03/2022 COLONOSCOPY 12/03/2022 Insurance Providers Payer Name Payer Address Payer Phone Subscriber Number Group Number Insured Name Patient Relationship to Insured Coverage Start Date Coverage End Date [facility] [address] [place] [phone] [id number] JASPER CANO Self - patient is the insured Medical (General) History Medical History History ICD Code Denies HI,DM,CVA,Lung disease,renal dise ase Hypertension Hypercholesterolemia GERD Anemia due to her menses-sees Dr. Moses and Dr. Wagner Surgical History Surgery Date(Month/Year)
--- OUTSIDE RECORDS SUMMARY | 2025-03-27 08:09 | XMS_ITS | Data Portability ---
Author Organization RENETTA Corey s, [address] Address [address] [place] [address] Care Team Providers Care Data Quality Consultant Name Role Phone TERENCE ARMIJO Primary Care Provider Assessment No assessment recorded. Plan of Treatment Reminders Order Date Submit Date Provider Last Modified By Organization Details Last Modified Time Details Appointments None recorded. Lab None recorded. Referral None recorded. Procedures None recorded. Surgeries None recorded. Imaging None recorded. Medication Orders cephalexin [address] [facility]Pharmacy #[id number], [address] [place], [address], 09:59:32 Patient TargetsNo targets recorded. Patient Instructions Encounter Date Encounter Id Patient Instructions Last Modified By Organization Details Last Modified Time 03/17/2023 [id number] cellulitis: care instructions Not available 03/17/2023 09:59:30 [...] if you have any questions or concerns. [email or web address] Not available 03/17/2023 09:59:29 Reason for Referral None Reported. Problems Name Problem SNOMED Code Status Onset Date Resolution Date Notes Provider Name and Address Organization Details Recorded Time Hypertensive disorder 77566864 Active 2022 COREY DEPINTO null, [place] - [facility] 3 09:33:48 Gastroesophage al reflux disease 675036440 Active 2022 COREY DEPINTO null, [place] - [facility] 3 09:34:00 Anemia 424503131 Active 2022 COREY DEPINTO null, [place] - [facility] 3 09:34:35 Notes:enlarged uterus Problem Notes None recorded. Medical Equipment None Reported. Allergies Allergen ID Allergen Name Allergen Category Reaction Reaction Severity Criticality Documentation Date Start Date Code Code System Note Provider Name and Address Organization Details Recorded Time 338494 pravastat in medicatio n myalgias (muscle pain) Not available Not available 03/17/2023 66184 RxNorm [facility], [facility] [...] Updated DateTime 3 144.78 cm 26.4 kg/m2 58805.2 7 g 99 % 99 % 66 /min 18 /min 97.9 [degF] 141/91 mm[Hg] COREY Godoy [facility] 3 09:36:30 Social History Question Answer Notes LastModified by [employer] Details LastModified Time Tobacco Smoking Status Never Smoker RENETTA Flynn [facility] 03/17/2023 09:35:02 Have You Recently Traveled Abroad? No Information not available 03/17/2023 Sex: Unknown Functional Status Question Answer Note LastModified by [employer] Details LastModified Time How many times [...] PF, 30 mcg/0.3 mL dose 06/18/2021 completed COREYSterling OROO nazia PA - [facility] 03/17/2023 09:31:17 Past Encounters Encounter ID Performer Location Encounter Start Date Encounter Closed Date Diagnosis/Indication Diagnosis SNOMED-CT Code Diagnosis ICD10 Code Diagnosis Note [id number] [address] [place] [address] 12/20/2020 15:19:12 12/20/2020 17:15:25 [id number] [address] [place] [address] 12/23/2018 10:16:14 12/23/2018 11:14:51 [id number] [address]TA SORIA [address] [place] [address] 03/17/2023 08:33:26 03/17/2023 10:00:05 Cellulitis 059035710 L03.90 Health Concerns Section Related Observation LastModified by Organization Detai ls LastModified Time None Recorded Concern Status LastModified by Organization Details LastModified Time None Recorded Advance Directives Directive None Recorded Payers Insurance Date Sequence Insurance Name Policy Number Policy Dooley Covered Member ID Dooley Member ID Guarantor Name 03/17/2023 1 [facility] [id number] Markel Garcia [id number] Markel Garcia Notes Date Note Type Note [...] MRSA. RENETTA SORIA [address] [place], [address], [place] - [facility] 03/18/2023 18:58:17 OBGyn Episode No OBEpisode recorded.
== END 2025-03-27 08:08 | disposition home or self-care (01) ==
LOC: HO.NEURO 08:07
PROVIDERS: PCP Internal Medicine; Visit Provider Internal Medicine
DX: G56.03 Carpal tunnel syndrome, bilateral upper limbs (principal)
CPT/HCPCS: 95886; 95913

== ENCOUNTER → 2025-03-27 08:09 | Outpatient (BNV) | payer OTHER, SELFPAY | PROVIDERS: PCP Internal Medicine; Visit Provider Psychiatry & Neurology Neurology | DX: G56.03 Carpal tunnel syndrome, bilateral upper limbs (principal); G56.23 Lesion of ulnar nerve, bilateral upper limbs | CPT/HCPCS: 95886; 95913 ==

== ENCOUNTER 2025-04-04 08:46 | Outpatient (AMB) | payer OTHER, SELFPAY ==
--- NOTE | 2025-04-04 08:59 | A.OFFVIS_ITS ---
Vital Signs 04/04/25 09:02 Height 4 ft 9 in Weight 131 lb BMI 28.3 Intake Visit Reasons: OV - Bilateral Carpal Tunnel, Discuss Surgery Intake Note: Markel is a 44 year old right hand dominant female who presents today for a follow up of her Bilateral Hand Pain, numbness and tingling. Patient was last seen with Delmy in 2023 where they briefly discussed surgical intervention, at the time patient wanted to think about it. Patient reports her left hand symptoms have worsened. She is describing her symptoms as weakness and difficulty gripping and grabbing items, daily. Denies finger locking. Denies new injuries to her hands since her last visit. EMG of the bilateral hands, obtained on 07/22/2023, revealed: 1. [id number] bilateral median neuropathy across carpal tunnel. 2. Mild bilateral ulnar neuropathy across cubital tunnel. Allergies pravastatin Adverse Reaction (Unknown, Verified 04/04/25 09:02) myalgias PFSH Medical History HTN (hypertension) GERD (gastroesophageal reflux disease) Endometrial hyperplasia Hypercholesterolemia Rash due to allergy History of anemia Pure hyperglyceridemia Vitamin D insufficiency Asthma Surgical History History of D&C Family History Paternal Uncle Myocardial infarct Bipolar 1 disorder Mental health disorder Paternal Grandfather Stomach cancer Maternal Grandfather Lung cancer Mother Pancreatic cancer Father Essential hypertension Social History (Updated 04/04/25 @ 09:02 by SANTOS William) Household Members: Family Housing: Apartment Alcohol intake: current Alcohol intake frequency: a few times a month Patient Tobacco Use Status: Never used Tobacco e-Cigarette/Vaping Use: Never Used Second Hand Smoke Exposure: No service: No Current occupational status: employed Current occupation: rt handed Current occupational exposures/hazards: No Sexual orientation: Straight/Heterosexual Gender identity: Female Cognitive needs: No Hearing needs: No Vision needs: Yes (glasses) Female Reproductive History Menstrual Age of Menarche: 9 Physical Exam Vital Signs: BMI result Body Mass Index 28.3 Assessment & Plan Assessment & Plan (1) Right carpal tunnel syndrome: Code(s): G56.01 - Carpal tunnel syndrome, right upper limb Category: Medical (2) Left carpal tunnel syndrome: Code(s): G56.02 - Carpal tunnel syndrome, left upper limb Category: Medical (3) Bilateral carpal tunnel syndrome: Code(s): G56.03 - Carpal tunnel syndrome, bilateral upper limbs Category: Medical Plan History of Present Illness The patient is a 44-year-old female presenting with symptoms of carpal tunnel syndrome and cubital tunnel syndrome. The patient reports that her symptoms began last year with numbness in her hand, described as a sensation of ants crawling, and have progressed to weakness, particularly in her hand when performing tasks such as tying shoelaces or handling her bra. She experiences difficulty gripping large objects with her affected hand, and the weakness is a new symptom that has developed over time. The numbness and tingling initially affected three fingers but now involve the entire hand, including the small finger, indicating involvement of both carpal and cubital tunnel syndromes. The patient has not mentioned any prior interventions or treatments for these symptoms. Review of Systems - Neurological: Reports numbness and tingling in the hand, weakness in hand redevelopment specialist, and difficulty performing tasks such as tying shoelaces and handling a bra. Physical Exam Neuro: Normal sensation of the tips of all digits of bilateral hands in the office today Vascular:Capillary refill brisk. ROM:Patient can make a fist and extend all their digits. Skin:No lacerations or abrasions noted. General:No ecchymosis. No erythema or evidence of infection. Results Plan The plan for the patient includes surgical intervention for both carpal tunnel syndrome and cubital tunnel syndrome. The surgeries will be performed under general anesthesia, with a four-week recovery period anticipated. The patient will have dressings on the wrist and elbow for the first five days postoperatively, which should be kept clean and dry. After five days, the dressings can be removed, and the incisions can be washed with soap and water, avoiding submersion in water for three weeks. The patient is advised to avoid heavy lifting and strenuous activities for four weeks post-surgery. A follow-up visit is scheduled two weeks after surgery to assess healing and remove sutures. I educated the patient about the condition. I discussed both operative and nonoperative treatment options. The patient would like to proceed with surgery. The risks and benefits of operative treatment were discussed with the patient and the patient wishes to proceed with surgery. These risks include, but are not limited to, risk of damage to blood vessels, nerves, tendons, infection, recurrence, incomplete relief of preoperative symptoms, persistent pain, possible need for further surgery, and the risks associated with regional blocks and/or anesthesia. Plan is to take the patient to the operating room at some point in the next few weeks for the following procedures: 1. Left cubital tunnel release under general 2. Left carpal tunnel release under general All of the preoperative paperwork including the consent was discussed today. All of the patient's questions were answered in the clinic today. The patient understands that they will be in contact with our surgical brace maker to discuss scheduling their procedure. Patient denies diabetes, blood thinners, asthma, heart issues, lung issues, kidney issues, or current smoking. Discussion Notes I discussed with the patient the diagnosis of carpal tunnel syndrome and cubital tunnel syndrome, explaining the surgical options available. We reviewed the necessity of general anesthesia for the procedures and the expected recovery period of four weeks. The patient was informed about postoperative care, including dressing management and activity restrictions. We also discussed the follow-up schedule, with a visit planned two weeks post-surgery to evaluate healing and remove sutures. Coding Level of Care Code Est Pt Level 4 (87295) Diagnoses Right carpal tunnel syndrome G56.01 Left carpal tunnel syndrome G56.02 Bilateral carpal tunnel syndrome G56.03
[2025-04-04 09:02] VITALS: BMI 28.3
--- OUTSIDE RECORDS SUMMARY | 2025-04-04 09:08 | XMS_ITS | Patient Health Record ---
Author Organization [facility] Address [address] [place] [address] Care Team Providers Care Foiling Machine Operator Name Role Phone Shanta Arthur Primary Care Provider Kayode Mathew Unavailable [phone] Allergies Allergen (clinical drug ingredient) Drug/Non Drug [...] Gastroesophageal reflux disease (K21.9) Active confirmed Problem 724951056 Screening for co christina cancer (Z12.11) Active confirmed Problem 027367960 Gastroesophageal reflux disease, unspecified whether esophagitis present (K21.9) Active confirmed Plan Of Treatment Future Test Test Name Order Date UPPER GI ENDOSCOPY 12/03/2022 COLONOSCOPY 12/03/2022 Insurance Providers Payer Name Payer Address Payer Phone Subscriber Number Group Number Insured Name Patient Relationship to Insured Coverage Start Date Coverage End Date [facility] [address] [place] [phone] [id number] JASPER CANO Self - patient is the insured Medical (General) History Medical History History ICD Code Denies AL,DM,CVA,Lung disease,renal dise ase Hypertension Hypercholesterolemia GERD Anemia due to her menses-sees Dr. Moses and Dr. Wagner Surgical History Surgery Date(Month/Year)
--- OUTSIDE RECORDS SUMMARY | 2025-04-04 09:08 | XMS_ITS | Data Portability ---
Author Organization RENETTA Corey s, [address] Address [address] [place] [address] Care Team Providers Care Telephone Lineman Name Role Phone TERENCE ARMIJO Primary Care Provider [phone] Assessment No assessment recorded. Plan of Treatment Reminders Order Date Submit Date Provider Last Modified By Organization Details Last Modified Time Details Appointments None recorded. Lab None recorded. Referral None recorded. Procedures None recorded. Surgeries None recorded. Imaging None recorded. Medication Orders cephalexin 500 mg capsule 2022 023 [id number], [address] [place], [address], 09:59:32 Patient TargetsNo targets recorded. Patient Instructions Encounter Date Encounter Id Patient Instructions Last Modified By Organization Details Last Modified Time 03/17/2023 [id number] cellulitis: care instructions [email or web address] Not available 03/17/2023 09:59:30 Based on your [...] if you have any questions or concerns. [email or web address] Not available 03/17/2023 09:59:29 Reason for Referral None Reported. Problems Name Problem SNOMED Code Status Onset Date Resolution Date Notes Provider Name and Address Organization Details Recorded Time Hypertensive disorder 30414106 Active 2022 COREY DEPINTO null, [place] - [facility] 3 09:33:48 Gastroesophage al reflux disease 932679666 Active 2022 COREY DEPINTO null, [place] - [facility] 3 09:34:00 Anemia 345465360 Active 2022 COREY DEPINTO null, [place] - [facility] 3 09:34:35 Notes:enlarged uterus Problem Notes None recorded. Medical Equipment None Reported. Allergies Allergen ID Allergen Name Allergen Category Reaction Reaction Severity Criticality Documentation Date Start Date Code Code System Note Provider Name and Address Organization Details Recorded Time 083445 pravastat in medicatio n myalgias (muscle pain) Not available Not available 03/17/2023 33509 RxNorm [facility], [place] [facility] [...] height Body mass index (BMI) Body weight Pain severity - 0-10 verbal numeric rating [Score] - Reported Oxygen saturation Oxygen saturation in Arterial blood by Pulse oximetry Heart rate Respiratory rate Body temperature Systolic And Diastolic Provider Name and Address Organization Details Last Updated DateTime 3 144.78 cm 26.4 kg/m2 04009.2 7 g 2 99 % 99 % 66 /min 18 /min 97.9 [degF] 141/91 mm[Hg] COREY Godoy [facility] 3 09:36:30 Social History Question Answer Notes LastModified by [employer] Details LastModified Time Tobacco Smoking Status Never Smoker RENETTA Flynn [facility] 03/17/2023 09:35:02 Have You Recently Traveled Abroad? No Information not available 03/17/2023 Sex: Unknown Functional Status Question Answer Note LastModified by [facility] Details LastModified Time How many times [...] PF, 30 mcg/0.3 mL dose 05/28/2021 completed COREY DEPINTO null, [place] - [facility] 03/17/2023 09:31:17 COVID-19, mRNA, LNP-S, PF, 30 mcg/0.3 mL dose 06/18/2021 completed COREY DEPINTO null, [place] - [facility] 03/17/2023 09:31:17 Past Encounters Encounter ID Performer Location Encounter Start Date Encounter Closed Date Diagnosis/Indication Diagnosis SNOMED-CT Code Diagnosis ICD10 Code Diagnosis Note [id number] [place] [address] 12/20/2020 15:19:12 12/20/2020 17:15:25 [id number] [address] [place] [address] 12/23/2018 10:16:14 12/23/2018 11:14:51 [id number] RENETTA SORIA [address] [facility] ZABRINA curtis [id number] 03/17/2023 08:33:26 03/17/2023 10:00:05 Cellulitis [id number] L03.90 Health Concerns Section Related Observation LastModified by Organization Kathie pruett LastModified Time None Recorded Concern Status LastModified by Organization Details LastModified Time None Recorded Advance Directives Directive None Recorded Payers Insurance Date Sequence Insurance Name Policy Number Policy Dooley Covered Member ID Dooley Member ID Guarantor Name 03/17/2023 1 [facility] [id number] Markel Garcia [id number] Markel Garcia Notes Date Note Type Note [...] not had MRSA. [facility] SORIA [address] [facility] [facility] [place] [address], [place] - [facility] 03/18/2023 18:58:17 OBGyn Episode No OBEpisode recorded.
== END 2025-04-04 09:24 | disposition home or self-care (01) ==
LOC: HO.HOS 08:47
PROVIDERS: PCP Internal Medicine
DX: G56.03 Carpal tunnel syndrome, bilateral upper limbs (principal)
CPT/HCPCS: 99214

== ENCOUNTER 2025-06-06 09:05 | Outpatient (AMB) | payer OTHER, SELFPAY ==
--- NOTE | 2025-06-06 09:08 | A.OFFVIS_ITS ---
Vital Signs 06/06/25 09:16 Height 4 ft 9 in Weight 131 lb BMI 28.3 BP 177/100 H Blood Pressure Location Lt brachial Position Sitting Pulse 71 Pulse Oximetry (%) 99 Intake Visit Reasons: Preop LT cubital/CTR 06/14/25 AR Intake Note: Lavon is a 44 year old right hand dominant woman who presents today for a pre operative visit to discuss her scheduled left carpal and cubital release with Dr Lisa Huang on 06/14/25. BP is elevated. Patient reports having a very stressful morning. Allergies pravastatin Adverse Reaction (Unknown, Verified 06/06/25 09:25) myalgias HPI HPI Preop LT cubital/CTR 06/14/25 AR: Details: Lavon is a 44 year old right hand dominant woman who presents today for a pre operative visit to discuss her scheduled left carpal and cubital release with Dr Lisa Huang on 06/14/25. BP is elevated. Patient reports having a very stressful morning. Patient reports no new diagnoses, new medications. 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 with negative chest x-ray HTN (hypertension) GERD (gastroesophageal reflux disease) Endometrial hyperplasia Hypercholesterolemia Rash due to allergy History of anemia Pure hyperglyceridemia Vitamin D insufficiency Asthma Surgical History History of esophagogastroduodenoscopy (EGD) H/O colonoscopy History of D&C Family History Paternal Uncle Myocardial infarct Bipolar 1 disorder Mental health disorder Paternal Grandfather Stomach cancer Maternal Grandfather Lung cancer Mother Pancreatic cancer Father Essential hypertension Social History Household Members: Family Housing: Apartment Are you a primary clinical manager home care to a significant other at home: No Do you presently have visiting nurse or other home services: No Alcohol intake: current Alcohol intake frequency: holidays/special occasions only Patient Tobacco Use Status: Never used Tobacco e-Cigarette/Vaping Use: Never Used Second Hand Smoke Exposure: No service: No Current occupational status: employed Current occupation: rt handed Current occupational exposures/hazards: No Sexual orientation: Straight/Heterosexual Gender identity: Female Cognitive needs: No Hearing needs: No Vision needs: Yes (glasses) Female Reproductive History Menstrual Age of Menarche: 9 Review of Systems Const All systems reviewed & are unremarkable except as noted in HPI and below Physical Exam Vital Signs: Last Vital Signs Pulse 71 06/06/25 09:16 BP 177/100 H 06/06/25 09:16 Pulse Ox 99 06/06/25 09:16 BMI result Body Mass Index 28.3 Extrem Other: Neuro: Normal sensation of the tips of all digits of the left hand in the office today No thenar or intrinsic wasting. Good APB muscle firing and good finger cross. Vascular: Capillary refill brisk. ROM: Patient can make a fist and extend all their digits. Skin: No lacerations or abrasions noted. General: No ecchymosis. No erythema or evidence of infection. Assessment & Plan Assessment & Plan (1) Left carpal tunnel syndrome: Code(s): G56.02 - Carpal tunnel syndrome, left upper limb Category: Medical (2) Cubital tunnel syndrome, bilateral: Code(s): G56.23 - Lesion of ulnar nerve, bilateral upper limbs Category: Medical Plan 1. Left cubital tunnel syndrome 2. Left carpal tunnel syndrome I educated the patient about the condition. I discussed both operative and nonoperative treatment options. The patient would like to proceed with surgery. The risks and benefits of operative treatment were discussed with the patient and the patient wishes to proceed with surgery. These risks include, but are not limited to, risk of damage to blood vessels, nerves, tendons, infection, recurrence, incomplete relief of preoperative symptoms, persistent pain, possible need for further surgery, and the risks associated with regional blocks and/or anesthesia. Plan is to take the patient to the operating room at some point in the next few weeks for the following procedures: 1. Left cubital tunnel release under general 2. Left carpal tunnel release under general All of the preoperative paperwork including the consent was discussed today. All of the patient's questions were answered in the clinic today. The patient understands that they will be in contact with our neurosurgical physician assistant to discuss scheduling their procedure. Patient denies diabetes, blood thinners, asthma, heart issues, lung issues, kidney issues, or current smoking. Coding Level of Care Code Est Pt Level 4 (64023) Diagnoses Left carpal tunnel syndrome G56.02 Cubital tunnel syndrome, bilateral G56.23
[2025-06-06 09:16] VITALS: BP 177/100; PULSE 71; O2SAT 99; BMI 28.3
--- OUTSIDE RECORDS SUMMARY | 2025-06-06 10:41 | XMS_ITS | Patient Health Record ---
Author Organization [facility] Address [address] [place] [id number] Care Team Providers Care Diesel Engine Inspector Name Role Phone Shanta Arthur Primary Care Provider Kayode Mathew Unavailable [phone] Allergies Allergen (clinical drug ingredient) Drug/Non Drug [...] Status Risk Notes Problem Gastroesophageal reflux disease (970729982) Gastroesophageal reflux disease (K21.9) Active confirmed Problem [id number] Screening for colon cancer (Z12.11) Active confirmed Problem [id number] Gastroesophageal reflux disease, unspecified whether esophagitis present (K21.9) Active confirmed Plan Of Treatment Future Test Test Name Order Date UPPER GI ENDOSCOPY 12/03/2022 COLONOSCOPY 12/03/2022 Insurance Providers Payer Name Payer Address Payer Phone Subscriber Number Group Number Insured Name Patient Relationship to Insured Coverage Start Date Coverage End Date [facility] [address] [place] [phone] [id number] JASPER CANO Self - patient is the insured Medical (General) History Medical History History ICD Code Denies MT,DM,CVA,Lung disease,renal dise ase Hypertension Hypercholesterolemia GERD Anemia due to her menses-sees Dr. Moses and Dr. Wagner Surgical History Surgery Date(Month/Year)
== END 2025-06-06 09:52 | disposition home or self-care (01) ==
LOC: HO.HOS 09:06
PROVIDERS: PCP Internal Medicine
DX: G56.02 Carpal tunnel syndrome, left upper limb (principal); G56.23 Lesion of ulnar nerve, bilateral upper limbs
CPT/HCPCS: 99024

== ENCOUNTER 2025-06-15 15:21 | Outpatient (AMB) | payer OTHER, SELFPAY ==
--- OUTSIDE RECORDS SUMMARY | 2025-06-15 15:24 | XMS_ITS | Patient Health Record ---
Author Organization [facility] Address [address] [place] [id number] Care Team Providers Care Shopfitter Name Role Phone Shanta Arthur Primary Care Provider Kayode Mathew Unavailable [phone] Allergies Allergen (clinical drug ingredient) Drug/Non Drug [...] Status Risk Notes Problem Gastroesophageal reflux disease (855285409) Gastroesophageal reflux disease (K21.9) Active confirmed Problem [id number] Screening for colon cancer (Z12.11) Active confirmed Problem [id number] Gastroesophageal reflux disease, unspecified whether esophagitis present (K21.9) Active confirmed Plan Of Treatment Future Test Test Name Order Date UPPER GI ENDOSCOPY 12/03/2022 COLONOSCOPY 12/03/2022 Insurance Providers Payer Name Payer Address Payer Phone Subscriber Number Group Number Insured Name Patient Relationship to Insured Coverage Start Date Coverage End Date [facility] [address] [place] [phone] [id number] JASPER CANO Self - patient is the insured Medical (General) History Medical History History ICD Code Denies CA,DM,CVA,Lung disease,renal dise ase Hypertension Hypercholesterolemia GERD Anemia due to her menses-sees Dr. Moses and Dr. Wagner Surgical History Surgery Date(Month/Year)
[2025-06-15 15:34] VITALS: BP 154/100; PULSE 70; RESP 18; TEMP 36.3; O2SAT 97; BMI 27.9
--- NOTE | 2025-06-15 15:34 | MHC.PC.OV ---
Vital Signs 06/15/25 15:34 Height 4 ft 9 in Weight 129 lb 2 oz BMI 27.9 BP 154/100 H Blood Pressure Location Lt brachial Position Sitting Respiration 18 Pulse 70 Pulse Source Pulse Oximeter Temp 97.3 F Temp Source Temporal Artery Scan Pulse Oximetry (%) 97 Oxygen Delivery Method Room Air [place] [facility] [place] High BP Supervisor Residential Required: No Accompanied by: Self / Same As Patient Allergies pravastatin Adverse Reaction (Unknown, Verified 06/15/25 15:51) myalgias Medication List - Last Reconciled 06/15/25 by Mikayla Wadsworth NP amlodipine 2.5 mg PO DAILY CPAP As directed famotidine 20 mg PO BID loratadine 10 mg PO DAILY PRN losartan 50 mg PO DAILY 90 days multivitamin 1 tab PO DAILY Ventolin HFA 90 mcg/actuation (albuterol sulfate) 2 puffs inhalation Q4-6H PRN 30 days NS Tobacco use date assessed: 06/15/25 Dental Screening Dental Screen Date: 06/15/25 Did you have a dental visit in the last 12 months?: Yes Did you have a dental problem in the last 6 months where you did not have access to dental care?: No Was dental information given to patient?: Patient has dentist HPI HPI Comments History of Present Illness Details 45 y/o Female patient who reports to the clinic today for EDF. Pt was admitted at [facility] on 06/14 for an evaluation and treatment of Elevated BP. Pt was found to have Systolic 200's and diastolic 100's. Pt reports headaches, lightheadedness, and mild chest tightness. Pt currently prescribed Losartan 50 mg once daily and the ED prescribed Amlodipine 2.5 mg once daily. Pt reports High BP readings at home despite treatment. 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 with negative chest x-ray HTN (hypertension) GERD (gastroesophageal reflux disease) Endometrial hyperplasia Hypercholesterolemia Rash due to allergy History of anemia Pure hyperglyceridemia Vitamin D insufficiency Asthma Surgical History History of esophagogastroduodenoscopy (EGD) H/O colonoscopy History of D&C Family History Paternal Uncle Myocardial infarct Bipolar 1 disorder Mental health disorder Paternal Grandfather Stomach cancer Maternal Grandfather Lung cancer Mother Pancreatic cancer Father Essential hypertension Social History Household Members: Family Housing: Apartment Are you a primary care services manager to a significant other at home: No Do you presently have visiting nurse or other home services: No Alcohol intake: current Alcohol intake frequency: holidays/special occasions only Patient Tobacco Use Status: Never used Tobacco e-Cigarette/Vaping Use: Never Used Second Hand Smoke Exposure: No service: No Current occupational status: employed Current occupation: rt handed Current occupational exposures/hazards: No Sexual orientation: Straight/Heterosexual Gender identity: Female Cognitive needs: No Hearing needs: No Vision needs: Yes (glasses) Female Reproductive History Menstrual Age of Menarche: 9 Questionnaire Thrive Questionnaire Date Thrive assessed: 02/05/25 I am a: Patient What is your living situation today?: I have a steady place to live Within the past 12 months, did the food you bought not last and you didn't have the money to get more?: Never true Within the past 12 months, did you worry whether your food would run out before you got money to buy more?: Never true Do you have trouble paying for medicines?: No Do you have trouble getting transportation to medical appointments?: No Do you have trouble paying your heating and electricity bill?: No Do you have trouble taking care of your child, family member or friend?: No Do you have trouble with day-to-day activities such as bathing, preparing meals, shopping, managing finances, etc.?: No Are you currently unemployed and looking for a job?: No Are you interested in more education?: No Please select the resources that you would like help with: None Currently or been in a relationship where the following occur: No concerns reported THRIVE Score: 0 SHAYY-7 AMB Questionnaire SHAYY-7 Date SHAYY - 7 assessed: 02/07/25 Source: Developed by Drs. Kayode Waite, Glo Schwab, Demarcus Yi and colleagues, with an educational renee from [employer] Review of Systems Const All systems reviewed & are unremarkable except as noted in HPI and below Physical exam (Primary Care) Vital Signs: Last Vital Signs Temp 97.3 F 06/15/25 15:34 Pulse 70 06/15/25 15:34 Resp 18 06/15/25 15:34 BP 154/100 H 06/15/25 15:34 Pulse Ox 97 06/15/25 15:34 Oxygen Delivery Method Room Air 06/15/25 15:34 BMI result Body Mass Index 27.9 Tobacco/Smoking Status: Tobacco use Status Tobacco use date assessed 06/15/25 06/15/25 15:38 Patient Tobacco Use Status Never used Tobacco 06/15/25 15:38 e-Cigarette/Vaping Use Never Used 06/15/25 15:38 Thrive Assessment: Date of Thrive Assessment Date Thrive assessed 02/05/25 06/15/25 15:38 Currently or been in a relationship where the following occur: No concerns reported Const General: no acute distress Nutritional Appearance: overweight Orientation/consciousness: patient oriented x3 Resp Effort & Inspection: normal respiratory effort Auscultation: clear to auscultation bilaterally Cardio Heart sounds: S1 normal heart sound present and S2 normal heart sound present Neuro General: patient oriented x3, gait normal and moves all extremities Coding Level of Care Code Est Pt Level 4 (51738) Diagnoses Essential (primary) hypertension I10 Time Spent (min) 20 Assessment & Plan Assessment & Plan (1) Essential (primary) hypertension: Code(s): I10 - Essential (primary) hypertension Category: Medical Plan: Advised to increase Losartan to 100 mg (Take 50 mg AM and 50 mg PM) plus Increase Amlodipine to 5 mg (Take 2 tabs 2.5 mg) once daily. Will Have Pt f/u in 2 weeks for BP Check with Nurse Navigator - Keep a Log of BP for review. Lifestyle changes; weight Loss, avoid High Sodium Diet, Avoid Stress and daily exercise.
== END 2025-06-15 16:19 | disposition home or self-care (01) ==
LOC: HO.HMCH 15:22
PROVIDERS: PCP Internal Medicine; Visit Provider Nurse Practitioner Family
DX: I10 Essential (primary) hypertension (principal)

== ENCOUNTER 2025-06-28 11:36 | Day surgery (SDC) | payer OTHER, SELFPAY ==
--- OUTSIDE RECORDS SUMMARY | 2025-05-01 10:10 | XMS_ITS | Patient Health Record ---
Author Organization [facility] Address [address] [place] [address] Care Team Providers Care Swinging Cut Off Saw Operator Name Role Phone Shanta Arthur Primary Care Provider Kayode Mathew Unavailable [phone] Allergies Allergen (clinical drug ingredient) Drug/Non Drug [...] Gastroesophageal reflux disease (K21.9) Active confirmed Problem 700839942 Screening for co christina cancer (Z12.11) Active confirmed Problem 112631984 Gastroesophageal reflux disease, unspecified whether esophagitis present (K21.9) Active confirmed Plan Of Treatment Future Test Test Name Order Date UPPER GI ENDOSCOPY 12/03/2022 COLONOSCOPY 12/03/2022 Insurance Providers Payer Name Payer Address Payer Phone Subscriber Number Group Number Insured Name Patient Relationship to Insured Coverage Start Date Coverage End Date [facility] [address] [place] [phone] [id number] JASPER CANO Self - patient is the insured Medical (General) History Medical History History ICD Code Denies CT,DM,CVA,Lung disease,renal dise ase Hypertension Hypercholesterolemia GERD Anemia due to her menses-sees Dr. Moses and Dr. Wagner Surgical History Surgery Date(Month/Year)
[2025-05-30 08:22] VITALS: BMI 28.3
[2025-05-31 09:35] VITALS: BMI 28.3
--- NOTE | 2025-05-31 14:03 | HO.ANESPROP2 ---
Documented by User: Kasia Quiros NP 06/15/25 10:26 HPI - Anesthesia Eval Consult details Narrative: 44yo F for Left Cubital Tunnel Release, Carpal Tunnel Release, 06/28/25 Pulmo optimized. Follows [facility] for HANNAH (retrognathia of lower jaw) and asthma. 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 PMF Active Problems Active Problems: All Active Problems PPD positive (Acute) HANNAH (obstructive sleep apnea) (Acute) Nocturnal hypoxemia (Acute) Essential (primary) hypertension (Acute) Daytime somnolence (Acute) Fatigue (Acute) Rib pain (Acute) Left carpal tunnel syndrome (Acute) Right carpal tunnel syndrome (Acute) Bilateral carpal tunnel syndrome (Acute) Mild asthma (Acute) Latent tuberculosis by blood test (Acute) Latent tuberculosis (Acute) Paresthesia (Acute) Enlarged uterus (Acute) Immunization due (Acute) Family history of pancreatic cancer (Acute) Iron deficiency anemia (Acute) Normocytic anemia (Acute) Elevated CA-125 (Acute) Iron deficiency anemia due to chronic blood loss (Acute) Microscopic hematuria (Acute) Seasonal allergic reaction (Acute) Tinea pedis (Acute) Complex ovarian cyst (Acute) Abnormal uterine bleeding (AUB) (Acute) Hyperlipidemia (Acute) Physical exam (Acute) Breast cancer screening by mammogram (Acute) Hypertension (Acute) LFT elevation (Acute) Thrombocytosis (Acute) Metrorrhagia (Acute) Well woman exam (Acute) GERD (gastroesophageal reflux disease) (Acute) Asthma (Acute) Hypercholesterolemia (Acute) Rash due to allergy (Acute) Past Medical History Medical History Vertigo 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 with negative chest x-ray HTN (hypertension) GERD (gastroesophageal reflux disease) Endometrial hyperplasia Hypercholesterolemia Rash due to allergy History of anemia Pure hyperglyceridemia Vitamin D insufficiency Asthma Family History Family History Paternal Uncle Myocardial infarct Bipolar 1 disorder Mental health disorder Paternal Grandfather Stomach cancer Maternal Grandfather Lung cancer Mother Pancreatic cancer Father Essential hypertension Family history of problems with anesthesia: No Surgical History Surgical History History of esophagogastroduodenoscopy (EGD) H/O colonoscopy History of D&C History of Problems with Anesthesia: No Social History Social History Household Members: Family Housing: Apartment Are you a primary healthcare network consultant to a significant other at home: No Do you presently have visiting nurse or other home services: No Alcohol intake: current Alcohol intake frequency: a few times a month Patient Tobacco Use Status: Never used Tobacco e-Cigarette/Vaping Use: Never Used Second Hand Smoke Exposure: No Use of substances other than those prescribed or required for medical reasons: No Have you been hit, kicked, punched, or otherwise hurt by someone within the past year? If so, by whom?: No Are you DNR?: No Advance Directives: No Advance Directives Information Provided: Yes Advance Directives on File: No Patient : No : No Poor oral hygiene: No service: No Current occupational status: employed Current occupation: rt handed Current occupational exposures/hazards: No Sexual orientation: Straight/Heterosexual Gender identity: Female Cognitive needs: No Hearing needs: No Vision needs: Yes (glasses) Meds Allergies Allergy/AdvReac Type Severity Reaction Status Date / Time pravastatin AdvReac Unknown myalgias Verified 06/15/25 15:51 Home Medications ?Medication ?Instructions ?Recorded ?Confirmed ?Last Taken ?Type multivitamin 1 tab PO DAILY 08/17/22 06/28/25 Unknown History famotidine 20 mg tablet 20 mg PO BID 01/28/23 06/28/25 06/28/25 History loratadine 10 mg tablet 10 mg PO DAILY PRN Allergy Symptoms 10/10/24 06/28/25 Unknown History amlodipine 2.5 mg tablet 5 mg PO DAILY 06/15/25 06/28/25 Unknown History losartan 50 mg tablet 50 mg PO BID 06/28/25 06/28/25 Unknown History Exam Height,Weight and Vital Signs: Height 4 ft 9 in Weight 59.421 kg Pertinent Lab Results Pertinent Lab Results: Laboratory Tests 03/07/24 02/06/25 09:16 07:42 WBC 6.5 Hgb 13.0 Hct 40.3 Plt Count 403 H Sodium 139 Potassium 4.6 Chloride 109 H Carbon Dioxide 22 BUN 11 Creatinine 0.63 Narrative Narrative: XR chest 2V 01/2025 IMPRESSION: Normal chest. Assessment and Plan Assessment Anesthesia Assessment: Chart Reviewed Final Anesthetic Review Family History of Problems with Anesthesia: No History of Problems with Anesthesia: No Documented by User: Nisreen Walsh NP 06/26/25 10:22 HPI - Anesthesia Eval Consult details Narrative: 44yo F for Left Cubital Tunnel Release, Carpal Tunnel Release, 06/28/25 Pulmo optimized. Follows [facility] for HANNAH (retrognathia of lower jaw) and asthma. 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 Work including head CT, chest xray also negative. She followed up with her PCP at [facility] who increased her BP medication on 06/15/25 and was told to return in 2 weeks for BP check. 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 with negative chest x-ray HTN (hypertension) GERD (gastroesophageal reflux disease) Endometrial hyperplasia Hypercholesterolemia Rash due to allergy History of anemia Pure hyperglyceridemia Vitamin D insufficiency Asthma Family History Family History Paternal Uncle Myocardial infarct Bipolar 1 disorder Mental health disorder Paternal Grandfather Stomach cancer Maternal Grandfather Lung cancer Mother Pancreatic cancer Father Essential hypertension Surgical History Surgical History History of esophagogastroduodenoscopy (EGD) H/O colonoscopy History of D&C Social History Social History Household Members: Family Housing: Apartment Are you a primary healthcare network consultant to a significant other at home: No Do you presently have visiting nurse or other home services: No Alcohol intake: current Alcohol intake frequency: a few times a month Patient Tobacco Use Status: Never used Tobacco e-Cigarette/Vaping Use: Never Used Second Hand Smoke Exposure: No Use of substances other than those prescribed or required for medical reasons: No Have you been hit, kicked, punched, or otherwise hurt by someone within the past year? If so, by whom?: No Are you DNR?: No Advance Directives: No Advance Directives Information Provided: Yes Advance Directives on File: No Patient : No : No Poor oral hygiene: No service: No Current occupational status: employed Current occupation: rt handed Current occupational exposures/hazards: No Sexual orientation: Straight/Heterosexual Gender identity: Female Cognitive needs: No Hearing needs: No Vision needs: Yes (glasses) Meds Allergies Allergy/AdvReac Type Severity Reaction Status Date / Time pravastatin AdvReac Unknown myalgias Verified 06/15/25 15:51 Home Medications ?Medication ?Instructions ?Recorded ?Confirmed ?Last Taken ?Type multivitamin 1 tab PO DAILY 08/17/22 06/28/25 Unknown History famotidine 20 mg tablet 20 mg PO BID 01/28/23 06/28/25 06/28/25 History loratadine 10 mg tablet 10 mg PO DAILY PRN Allergy Symptoms 10/10/24 06/28/25 Unknown History amlodipine 2.5 mg tablet 5 mg PO DAILY 06/15/25 06/28/25 Unknown History losartan 50 mg tablet 50 mg PO BID 06/28/25 06/28/25 Unknown History Documented by User: Omar Marx MD 06/28/25 12:07 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 with negative chest x-ray HTN (hypertension) GERD (gastroesophageal reflux disease) Endometrial hyperplasia Hypercholesterolemia Rash due to allergy History of anemia Pure hyperglyceridemia Vitamin D insufficiency Asthma Family History Family History Paternal Uncle Myocardial infarct Bipolar 1 disorder Mental health disorder Paternal Grandfather Stomach cancer Maternal Grandfather Lung cancer Mother Pancreatic cancer Father Essential hypertension Surgical History Surgical History History of esophagogastroduodenoscopy (EGD) H/O colonoscopy History of D&C Social History Social History Household Members: Family Housing: Apartment Are you a primary healthcare network consultant to a significant other at home: No Do you presently have visiting nurse or other home services: No Alcohol intake: current Alcohol intake frequency: a few times a month Patient Tobacco Use Status: Never used Tobacco e-Cigarette/Vaping Use: Never Used Second Hand Smoke Exposure: No Use of substances other than those prescribed or required for medical reasons: No Have you been hit, kicked, punched, or otherwise hurt by someone within the past year? If so, by whom?: No Are you DNR?: No Advance Directives: No Advance Directives Information Provided: Yes Advance Directives on File: No Patient : No : No Poor oral hygiene: No service: No Current occupational status: employed Current occupation: rt handed Current occupational exposures/hazards: No Sexual orientation: Straight/Heterosexual Gender identity: Female Cognitive needs: No Hearing needs: No Vision needs: Yes (glasses) Meds Allergies Allergy/AdvReac Type Severity Reaction Status Date / Time pravastatin AdvReac Unknown myalgias Verified 06/15/25 15:51 Home Medications ?Medication ?Instructions ?Recorded ?Confirmed ?Last Taken ?Type multivitamin 1 tab PO DAILY 08/17/22 06/28/25 Unknown History famotidine 20 mg tablet 20 mg PO BID 01/28/23 06/28/25 06/28/25 History loratadine 10 mg tablet 10 mg PO DAILY PRN Allergy Symptoms 10/10/24 06/28/25 Unknown History amlodipine 2.5 mg tablet 5 mg PO DAILY 06/15/25 06/28/25 Unknown History losartan 50 mg tablet 50 mg PO BID 06/28/25 06/28/25 Unknown History Exam Exam Date and Time: 06/28/25 Airway Mallampati Class: II TM Dist: >3cm Neck ROM: Full Heart: rrr Lungs: ctab vesicular Assessment and Plan Assessment Anesthesia Assessment: Anesthesia Plan Discussed and PAT Visit Final Anesthetic Review NPO: Yes ASA Class: III Final Preanesthetic Review: No Changes in Pt Med Stat, Meds/Allgs Chart Reviewed, Consent Obtained/Reviewed and Anes Risks/Benef Reviewed Patient Risk: Low Procedure Risk: Low Anesthetic Plan Anesthetic Plan: GA Disposition: Standard PACU
[2025-06-28] VITALS (7 sets, daily range): BP systolic 133–163; BP diastolic 79–107; PULSE 67–86; RESP 12–18; TEMP 36.7–37.4; O2SAT 93–98
[2025-06-28 12:04] LABS: UPreg QC Valid YES
--- NOTE | 2025-06-28 12:23 | MHC.SHP ---
Pre-Procedural Eval Section A - 24 Hr Update-Section A only Date of Service: 06/28/25 The patient is an INPATIENT: No Changes since office visit: No Cold of Flu in the past 2 weeks, No New Medical Problems, No Changes in Medication and No Patient answered all questions The patient has been examined within 24 hours of the surgical procedure. The History & Physical has been completed within 30 days and I have reviewed it.: Yes Section B - Complete if H&P > 30 days Chief Complaint: carpal tunnel,lesion of ulnar nerve Allergies: Allergies Allergy/AdvReac Type Severity Reaction Status Date / Time pravastatin AdvReac Unknown myalgias Verified 06/15/25 15:51 Plan I have reviewed the history and physical and performed a pertinent physical examination on my patient. No changes have occurred unless specified. Time Spent With Patient Time: Total time managing care of this patient today ____ minutes.
--- NOTE | 2025-06-28 12:24 | W.PM.OPN ---
Operative Note Operative Note Date of Service: 06/28/25 Narrative: Operative Note Narrative: Preop diagnosis: 1. Left Cubital tunnel syndrome 2. Left carpal tunnel syndrome Postop diagnosis: Same Procedure: 1. Left Cubital Tunnel Release 2. Left carpal tunnel release Surgeon: Lisa Huang MD Painter Tumbling Barrel: Cullen JACKSON Anesthesia: General Anesthesia Findings: Thickening and fibrosis about the ulnar nerve at the cubital tunnel Implants: none Tourniquet time: 30 minutes EBL: 5.0 ml Specimen: none Drains: None Complications: None Disposition: Brought to the recovery room in stable condition Plan: Follow-up in 10-14 days for wound check, and suture removal Indications: The patient is 45 years old with left carpal tunnel syndrome and left cubital tunnel syndrome . The risks and benefits of operative treatment, including but not limited to risk of damage to blood vessels, nerves, tendons, infection, recurrence, persistent pain or numbness, incomplete resolution of preoperative symptoms, or need for further surgery were discussed with the patient and they wished to proceed with surgery. Procedure: Once consent was obtained patient was brought back to the operating suite and placed in the operating table in a supine position. Perioperative antibiotics and anesthesia was administered by the anesthesia team. The limb was prepped and draped in a standard surgical fashion, and a sterile tourniquet applied to the proximal aspect of the left upper extremity. The limb was elevated exsanguinated with Esmarch bandage and the tourniquet inflated to 250 mm of mercury for a total tourniquet time of 30 minutes. Once assured that we had a good block, a 2.0 cm longitudinal incision was made centered over the left carpal tunnel. The incision was made through the skin to the subcutaneous tissues using a #15 blade. Dissection was made down to the level of the transverse carpal ligament with care being taken to protect the palmar cutaneous nerve. Once the transverse carpal ligament was clearly visualized, a longitudinal incision was made in the transverse carpal ligament 1st using a #15 blade, then using tenotomy scissors under direct visualization. Care was taken to look for and protect the motor branch of the median nerve when seen in this area. Once satisfied with our carpal tunnel release the wound was irrigated with normal saline. A 6 cm gently curved but longitudinally oriented incision was made centered over the cubital tunnel of the left upper extremity. Incision was made through the skin to the subcutaneous tissues using a # 15 Blade. I then dissected down to the level of the medial epicondyle and the cubital tunnel using tenotomy scissors. Care was taken to protect the medial antebrachial cutaneous nerve. The ulnar nerve was identified just posterior to the medial intermuscular septum. The ulnar nerve was released in a proximal to distal direction using tenotomy in iris scissors while directly visualizing and protecting the ulnar nerve. Thickening and fibrosis was appreciated about the ulnar nerve as it passed through the cubital tunnel. The ulnar nerve was assessed as I passed the elbow through full flexion and extension and was found to remain stable within its groove. At this point the tourniquet was deflated and hemostasis obtained with a brief period of local pressure and bipolar electrocautery. The wound was copiously irrigated with normal saline. The subcutaneous layer was closed with 4-0 Vicryl suture, and the skin edges were reapproximated with 5-0 nylon suture. The wound was infiltrated with some 1% lidocaine with epinephrine for postop pain control and sterile dressings were applied. The patient appears to have tolerated the procedure well and with no complications. All digits were well vascularized at the conclusion of the case.
[2025-06-28] MEDS: Lactated Ringers 1,000 ML 100 ML IVCONT (12:43)
== END 2025-06-28 15:04 | disposition home or self-care (01) ==
PROVIDERS: Nurse Practitioner; PCP Internal Medicine; Visit Provider Orthopaedic Surgery
PROC: (CPT 64718; principal; 2025-06-28 12:10)
PROC: (CPT 64721; 2025-06-28 12:10)
DX: G56.02 Carpal tunnel syndrome, left upper limb (principal); G56.22 Lesion of ulnar nerve, left upper limb; G47.33 Obstructive sleep apnea (adult) (pediatric); I10 Essential (primary) hypertension; E78.00 Pure hypercholesterolemia, unspecified; E78.1 Pure hyperglyceridemia; E55.9 Vitamin D deficiency, unspecified; J45.909 Unspecified asthma, uncomplicated; R42 Dizziness and giddiness; R76.11 Nonspecific reaction to tuberculin skin test without active tuberculosis; Z99.89 Dependence on other enabling machines and devices; Z79.899 Other long term (current) drug therapy; Z88.8 Allergy status to other drugs, medicaments and biological substances
CPT/HCPCS: 64721; 64718; 81025; J0131; J0690; J1100; J1885; J2003; J2004; J2250; J2371; J2405; J2704; J3010

== ENCOUNTER → 2025-06-28 11:36 | Outpatient (BNV) | payer OTHER, SELFPAY | PROVIDERS: PCP Internal Medicine; Visit Provider Orthopaedic Surgery | DX: G56.22 Lesion of ulnar nerve, left upper limb (principal); G56.02 Carpal tunnel syndrome, left upper limb | CPT/HCPCS: 64718; 64721 ==

== ENCOUNTER 2025-07-10 10:14 | Outpatient (AMB) | payer OTHER, SELFPAY ==
--- NOTE | 2025-07-10 10:23 | MHC.OFFVIS ---
Vital Signs 07/10/25 10:38 Handedness Right Intake Visit Reasons: PO LT cubital/CTR 06/28/25 AR Intake Note: Lavon is a 45 year old right hand dominant female who presents today for a Post-Operative Visit status post Left Cubital & Carpal Tunnel Release performed by Dr. Huang on 06/28/25. Patient reports extreme sensitivity in the elbow and the digits of her left hand. She expresses numbness and weird sensation in the left thumb. Denies drainage. Says narcisa days by the end of the day she still eels some numbness and tingling. Sutures removed and steri strips applied. Allergies pravastatin Adverse Reaction (Unknown, Verified 07/10/25 10:37) myalgias HPI HPI PO LT cubital/CTR 06/28/25 AR: Details: Lavon is a 45 year old right hand dominant female who presents today for a Post-Operative Visit status post Left Cubital & Carpal Tunnel Release performed by Dr. Huang on 06/28/25. Patient reports extreme sensitivity in the elbow and the digits of her left hand. She expresses numbness and weird sensation in the left thumb. Denies drainage. Says some days by the end of the day she still feels some numbness and tingling in the thumb. Sutures removed and steri strips applied. 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 with negative chest x-ray HTN (hypertension) GERD (gastroesophageal reflux disease) Endometrial hyperplasia Hypercholesterolemia Rash due to allergy History of anemia Pure hyperglyceridemia Vitamin D insufficiency Asthma Surgical History History of decompression of ulnar nerve History of carpal tunnel release History of esophagogastroduodenoscopy (EGD) H/O colonoscopy History of D&C Family History Paternal Uncle Myocardial infarct Bipolar 1 disorder Mental health disorder Paternal Grandfather Stomach cancer Maternal Grandfather Lung cancer Mother Pancreatic cancer Father Essential hypertension Social History Household Members: Family Housing: Apartment Are you a primary workforce investment act career manager to a significant other at home: No Do you presently have visiting nurse or other home services: No Alcohol intake: current Alcohol intake frequency: a few times a month Patient Tobacco Use Status: Never used Tobacco e-Cigarette/Vaping Use: Never Used Second Hand Smoke Exposure: No service: No Current occupational status: employed Current occupation: rt handed Current occupational exposures/hazards: No Sexual orientation: Straight/Heterosexual Gender identity: Female Cognitive needs: No Hearing needs: No Vision needs: Yes (glasses) Female Reproductive History Menstrual Age of Menarche: 9 Physical Exam Extrem Other: Patient is alert, oriented, and in no acute distress. Neuro: Normal sensation of the tips of all digits of the left hand at this time Vascular: Cap refill brisk Pain: No tenderness to palpation about the incision sites on left wrist or elbow ROM: Patient is able to make a closed fist and extend all digits of the left hand fully with encouragement, does have discomfort when doing this Range of motion of the left elbow full and intact Skin: Well approximated and well healing incision sites noted on medial left elbow and volar left wrist No lacerations or abrasions. General: No ecchymosis, erythema, or evidence of infection. Psych: Appears grossly normal Affect normal Attitude cooperative Assessment & Plan Assessment & Plan (1) Bilateral carpal tunnel syndrome: Code(s): G56.03 - Carpal tunnel syndrome, bilateral upper limbs Category: Medical (2) Cubital tunnel syndrome, bilateral: Code(s): G56.23 - Lesion of ulnar nerve, bilateral upper limbs Category: Medical Plan 1. Status post left cubital and carpal tunnel releases DOS 06/28/2025 Patient appears to be recovering well postoperatively Patient is educated about the typical recovery course At this time, OT referral placed for range of motion and strengthening of the left elbow, wrist, and hand in the setting of stiffness after left cubital and carpal tunnel releases No under water x1 week, 2 lb weight limit x2 weeks Patient should continue working on range of motion of the left hand, wrist, and elbow prior to seeing OT Patient understands this and is amenable to this plan Patient follow-up in 4-6 weeks for [id number] check, sooner with any acute concerns Orders: Orders OT Evaluation and Treatment Today G56.03 - Carpal tunnel syndrome, bilateral upper limbs, G56.23 - Lesion of ulnar nerve, bilateral upper limbs Coding Level of Care Code Global (07899) Diagnoses Bilateral carpal tunnel syndrome G56.03 Cubital tunnel syndrome, bilateral G56.23
--- OUTSIDE RECORDS SUMMARY | 2025-07-10 12:33 | XMS_ITS | Patient Health Record ---
Author Organization [facility] Address [address] [place] [id number] Care Team Providers Care Firestop/Containment Worker Name Role Phone Shanta Arthur Primary Care Provider Kayode Mathew Unavailable [phone] Allergies Allergen (clinical drug ingredient) Drug/Non Drug Allergy documented on EMR Reaction Allergy Type Onset Date Status pravastatin Pravastatin Unknown Drug Allergy Act gladys Reason For Referral No Information Medications Medication SIG (Take, Route, Frequency, Duration) Notes Start Date End Date Status Famotidine 20 MG 1 Orally Every morning and every evening; Duration: 30 day(s) Active Multivitamin Active Loratadine 10 MG TAKE 1 TABLET BY MOUTH EVERY DAY Oral; Duration: 90 Active medroxyPROGESTERone Acetate 10 MG TAKE 1 TABLET DAILY FROM DAY 15 TO 24 OF CYCLE EVERY MONTH,DAY 1 BEING 1ST DAY OF MENSES Oral; Duration: 90 Active Ferrous Sulfate 325 (65 Fe) MG TAKE 1 TA BLET BY MOUTH TWICE DAILY Oral; Duration: 90 Active Vitamin D Active Vitamin C 500 MG TAKE 1 TABLET BY MOUTH TWICE DAILY Oral; Duration: 30 Active amLODIPine Besylate 5 MG TAKE 1 TABLET B Y MOUTH EVERY DAY Oral; Duration: 90 Active Social History Tobacco Use: Social [...] Status Risk Notes Problem Gastroesophageal reflux disease (111226233) Gastroesophageal reflux disease (K21.9) Active confirmed Problem Screening for colon cancer (202504500) Screening for colon cancer (Z12.11) Active confirmed Problem Gastroesophageal reflux disease (914024448) Gastroesophageal reflux disease, unspecified whether esophagitis present (K21.9) Active confirmed Plan Of Treatment Future Test Test Name Order Date UPPER GI ENDOSCOPY 12/03/2022 COLONOSCOPY 12/03/2022 Insurance Providers Payer Name Payer Address Payer Phone Subscriber Number Group Number Insured Name Patient Relationship to Insured Coverage Start Date Coverage End Date [facility] [address] [place] [phone] [id number] JASPER CANO Self - patient is the insured Medical (General) History Medical History History ICD Code Denies CT,DM,CVA,Lung disease,renal dise ase Hypertension Hypercholesterolemia GERD Anemia due to her menses-sees Dr. Moses and Dr. Wagner Surgical History Surgery Date(Month/Year)
== END 2025-07-10 10:58 | disposition home or self-care (01) ==
LOC: HO.HOS 10:15
PROVIDERS: PCP Internal Medicine
DX: G56.03 Carpal tunnel syndrome, bilateral upper limbs (principal); G56.23 Lesion of ulnar nerve, bilateral upper limbs
CPT/HCPCS: 99024

== ENCOUNTER 2025-07-31 10:01 | Outpatient (AMB) | payer OTHER, SELFPAY ==
--- NOTE | 2025-07-31 10:10 | MHC.OFFVIS ---
Vital Signs 07/31/25 10:11 Height 4 ft 9 in Weight 130 lb 1.164 oz BMI 28.1 BP 130/72 Blood Pressure Location Lt brachial Position Sitting Pulse 75 Pulse Source Pulse Oximeter Pulse Oximetry (%) 98 Oxygen Delivery Method Room Air Intake Visit Reasons: Sleep apnea Intake Note: pt is here for follow up and states she is did have a surgery and struggled with cpap, she is getting back on. Electrician Control Equipment Required: No Exceptional Needs Teacher: Exceptional Needs Teacher offered & declined Allergies pravastatin Adverse Reaction (Unknown, Verified 07/31/25 10:48) myalgias Medication List - Last Reconciled 07/31/25 by Jamshid Parry MD amlodipine 5 mg (2 x 2.5 mg) PO DAILY 90 days CPAP As directed famotidine 20 mg PO BID loratadine 10 mg PO DAILY PRN losartan 50 mg PO BID multivitamin 1 tab PO DAILY Ventolin HFA 90 mcg/actuation (albuterol sulfate) 2 puffs inhalation Q4-6H PRN 30 days NS Do you need a note to return to daycare/school/sports/work: No HPI HPI Sleep apnea: Details: THIS 45 YEARS OLD FEMALE MODERATELY OBESE HAS OBSTRUCTIVE SLEEP APNEA AND MILD BRONCHIAL ASTHMA. SHE UNDERWENT RIGHT SHOULDER SURGERY AND DID VERY WELL. POSTOPERATIVELY SHE HAD DIFFICULTY IN PUTTING ON THE CPAP EVERY NIGHT. BUT NOW FOR THE PAST 10 DAYS SHE IS STARTING TO USE IT EVERY NIGHT AND SLEEPS WELL. BREATHING HAS BEEN VERY STABLE WITHOUT ANY ACUTE EXACERBATION. SHE IS NONSMOKER. 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 with negative chest x-ray HTN (hypertension) GERD (gastroesophageal reflux disease) Endometrial hyperplasia Hypercholesterolemia Rash due to allergy History of anemia Pure hyperglyceridemia Vitamin D insufficiency Asthma Surgical History History of decompression of ulnar nerve History of carpal tunnel release History of esophagogastroduodenoscopy (EGD) H/O colonoscopy History of D&C Family History Paternal Uncle Myocardial infarct Bipolar 1 disorder Mental health disorder Paternal Grandfather Stomach cancer Maternal Grandfather Lung cancer Mother Pancreatic cancer Father Essential hypertension Social History Household Members: Family Housing: Apartment Are you a primary neonatal intensive care nurse to a significant other at home: No Do you presently have visiting nurse or other home services: No Alcohol intake: current Alcohol intake frequency: a few times a month Patient Tobacco Use Status: Never used Tobacco e-Cigarette/Vaping Use: Never Used Second Hand Smoke Exposure: No service: No Current occupational status: employed Current occupation: rt handed Current occupational exposures/hazards: No Sexual orientation: Straight/Heterosexual Gender identity: Female Cognitive needs: No Hearing needs: No Vision needs: Yes (glasses) Female Reproductive History Menstrual Age of Menarche: 9 Review of Systems Const All systems reviewed & are unremarkable except as noted in HPI and below Reports snoring (Loud) Eyes Reports no additional complaints ENT Reports nasal congestion (Mild intermittent) Card Reports no additional complaints Resp Reports snoring (Loud) and Reports wheezing (Intermittent on exposure to certain kinds of dust and smoke) GI Reports no additional complaints Reports no additional complaints Musc Reports no additional complaints Skin/Breast Reports system reviewed and no additional complaints, except as documented Neuro Reports no additional complaints Psych Reports no additional complaints Endo Reports no additional complaints Aller/Immun Reports wheezing (Intermittent on exposure to certain kinds of dust and smoke) Physical Exam Vital Signs: Last Vital Signs Pulse 75 07/31/25 10:11 BP 130/72 07/31/25 10:11 Pulse Ox 98 07/31/25 10:11 Oxygen Delivery Method Room Air 07/31/25 10:11 BMI result Body Mass Index 28.1 Const General: healthy appearing, comfortable, no acute distress, alert and awake Orientation/consciousness: patient oriented x3 HEENT Other: She has 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 Head: Yes normal to inspection General nose exam: No nasal polyps present and No nasal discharge present Face and sinus: Yes sinuses nontender Mouth: oropharynx abnormals (Narrow and crowded, Mallampati class 3) Teeth and gingiva: other (Prominent retrognathia of the lower jaw) Throat: Yes posterior oropharynx normal Eyes General: appearance normal, both eyes and all related structures Neck Neck: Yes normal visual inspection, Yes no lymphadenopathy, Yes trachea midline and Yes no JVD Thyroid: Thyroid normal Chest Chest palpation & inspection: normal inspection of the chest, normal palpation of entire chest wall and no tenderness Resp Effort & Inspection: normal respiratory effort Auscultation: clear to auscultation bilaterally, no crackles and no wheezes Cardio Palpation: normal PMI Rate: regular rate Rhythm: regular rhythm Heart sounds: no gallops and no murmurs Peripheral pulses: Peripheral pulses 2+ throughout GI Palpation (GI): Soft to palpation, nontender, No hepatosplenomegaly present and no masses Auscultation: normal bowel sounds Back/Spine/Pelvis Thoracic/Lumbar Spine: thoracic and lumbar spine normal to inspection Skin General skin exam: no rashes or lesions noted Neuro General: patient oriented x3 and no focal motor deficits Cranial nerves: Yes CN's II-XII intact bilaterally Extrem General: Yes normal to inspection, Yes no clubbing, cyanosis or edema and Yes no calf tenderness Psych Appearance: grossly normal and well kempt Speech and movement: Normal speech and movement present Results Reviewed Results Reviewed: COMPLIANCE REPORT IS REVIEWED SHE HAS USED 16/30 NIGHTS, 53%. IN THE LAST 10 DAYS SHE IS USING IT ALMOST EVERY NIGHT. AVERAGE USAGE PER NIGHT 6 HOURS 16 MINUTES. RESIDUAL AHI ONLY 0.3 Assessment & Plan Assessment & Plan (1) HANNAH (obstructive sleep apnea): Comment: SHE HAS THE SYMPTOMS AND SLEEP STUDY FINDINGS CONSISTENT WITH SEVERE OBSTRUCTIVE SLEEP APNEA. 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 SHE IS VERY COMPLIANT IN USING THE CPAP, MISSING THE USAGE ONLY IF SHE IS NOT AT HOME. FOR A FEW WEEKS AFTER THE SHOULDER SURGERY SHE HAS NOT BEEN ABLE TO USE CPAP REGULARLY. NOW SHE HAS RESUMED USING IT EVERY NIGHT AND SLEEPS WELL. SHE USES F 40 FULL FACE MASK, WHICH IS COMFORTABLE Code(s): G47.33 - Obstructive sleep apnea (adult) (pediatric) Category: Medical Plan: USE CPAP EVERY NIGHT. WILL BE RECHECKED IN 4 MONTHS TO GO OVER THE COMPLIANCE. (2) Nocturnal hypoxemia: Comment: SHE DID HAVE MILD NOCTURNAL HYPOXEMIA BUT THIS IS EXPECTED TO CORRECT BY USE OF CPAP. Code(s): G47.34 - Idiopathic sleep related nonobstructive alveolar hypoventilation Category: Medical Plan: CLINICALLY I THINK SHE HAS NO SIGNIFICANT OBSTRUCTIVE AIRWAY DISORDER, AND WOULD NOT NEED ANY O2 SUPPLEMENTATION. (3) Asthma: Comment: SHE GIVES HISTORY OF MILD INTERMITTENT BRONCHIAL ASTHMA, SECONDARY TO EXPOSURE TO SOME TRIGGERS SUCH PAPER DUST, PRINTER INK, OUTSIDE DUST ETC. SHE ALSO HAS SYMPTOMS OF MILD ALLERGIC RHINITIS AT THE SAME TIME. SHE IS ABLE TO AVOID EXPOSURE TO THE ALLERGENS AND HAS NOT NEEDED TO USE THE VENTOLIN FOR ALMOST 6 MONTHS. Code(s): J45.909 - Unspecified asthma, uncomplicated Category: Medical Plan: USE ALBUTEROL HFA 2 PUFFS Q 4-6 HOURS ONLY P.R.N. Coding Level of Care Code Est Pt Level 3 (78714) Diagnoses HANNAH (obstructive sleep apnea) G47.33 Nocturnal hypoxemia G47.34 Asthma J45.909
[2025-07-31 10:11] VITALS: BP 130/72; PULSE 75; O2SAT 98; BMI 28.1
== END 2025-07-31 10:41 | disposition home or self-care (01) ==
LOC: HO.HPS 10:02
PROVIDERS: PCP Internal Medicine; Visit Provider Internal Medicine
DX: G47.33 Obstructive sleep apnea (adult) (pediatric) (principal); G47.34 Idiopathic sleep related nonobstructive alveolar hypoventilation; J45.909 Unspecified asthma, uncomplicated
CPT/HCPCS: 99213

== ENCOUNTER 2025-08-13 08:11 | Outpatient (AMB) | payer OTHER, SELFPAY ==
--- NOTE | 2025-08-13 08:20 | MHC.PC.OV ---
Vital Signs 08/13/25 08:21 Height 4 ft 9 in Weight 130 lb 2 oz BMI 28.2 BP 110/70 Blood Pressure Location Rt brachial Position Sitting Pulse 70 Pulse Source Pulse Oximeter Temp 97.1 F Temp Source Temporal Artery Scan Pulse Oximetry (%) 98 Oxygen Delivery Method Room Air Intake Visit Reasons: bp Intake Note: Patient is here to follow up on BP. Coil Cleaner Required: No Electroplating Sales Representative: Not Required per policy Accompanied by: Self / Same As Patient Allergies pravastatin Adverse Reaction (Unknown, Verified 08/13/25 08:30) myalgias Medication List - Last Reconciled 08/13/25 by Shanta Garcia MD amlodipine 5 mg (2 x 2.5 mg) PO DAILY 90 days CPAP As directed famotidine 20 mg PO BID loratadine 10 mg PO DAILY PRN losartan 50 mg PO BID multivitamin 1 tab PO DAILY Ventolin HFA 90 mcg/actuation (albuterol sulfate) 2 puffs inhalation Q4-6H PRN 30 days NS Tobacco use date assessed: 08/13/25 Dental Screening Dental Screen Date: 06/15/25 HPI HPI Comments History of Present Illness Details The patient is a 45 year old individual presenting for follow-up of chronic conditions. The patient has a history of hypertension, which recently culminated in a hypertensive crisis with a blood pressure reading of 207/137 mmHg. This event was associated with work-related stress from working 12-hour shifts and was accompanied by symptoms of blurry vision and dizziness. A subsequent workup including an echocardiogram, CT scan, and X-rays showed no acute organ damage. The patient's medication regimen was adjusted to amlodipine 5 mg and losartan in the morning, with a second dose of losartan in the evening, which has successfully stabilized the patient's blood pressure. The patient's last laboratory results indicated elevated cholesterol, but the [place] Risk Score was low, and therefore no cholesterol medication was initiated. The patient has a known allergy to pravastatin, which causes myalgias. Other chronic conditions include gastroesophageal reflux, which is well-controlled with famotidine twice daily, and obstructive sleep apnea managed with a CPAP machine under the care of a chucking machine operator. The patient underwent surgery on the hand and elbow on June 28 and is currently receiving physical therapy. The treating therapist recommends an additional month of therapy, as the patient has not yet started lifting weights of 5 pounds, and the arm remains sensitive. 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 with negative chest x-ray HTN (hypertension) GERD (gastroesophageal reflux disease) Endometrial hyperplasia Hypercholesterolemia Rash due to allergy History of anemia Pure hyperglyceridemia Vitamin D insufficiency Asthma Surgical History History of decompression of ulnar nerve History of carpal tunnel release History of esophagogastroduodenoscopy (EGD) H/O colonoscopy History of D&C Family History Paternal Uncle Myocardial infarct Bipolar 1 disorder Mental health disorder Paternal Grandfather Stomach cancer Maternal Grandfather Lung cancer Mother Pancreatic cancer Father Essential hypertension Social History Household Members: Family Housing: Apartment Are you a primary child day care center worker to a significant other at home: No Do you presently have visiting nurse or other home services: No Alcohol intake: current Alcohol intake frequency: a few times a month Patient Tobacco Use Status: Never used Tobacco e-Cigarette/Vaping Use: Never Used Second Hand Smoke Exposure: No service: No Current occupational status: employed Current occupation: rt handed Current occupational exposures/hazards: No Sexual orientation: Straight/Heterosexual Gender identity: Female Cognitive needs: No Hearing needs: No Vision needs: Yes (glasses) Female Reproductive History Menstrual Age of Menarche: 9 Questionnaire Thrive Questionnaire Date Thrive assessed: 02/05/25 I am a: Patient What is your living situation today?: I have a steady place to live Within the past 12 months, did the food you bought not last and you didn't have the money to get more?: Never true Within the past 12 months, did you worry whether your food would run out before you got money to buy more?: Never true Do you have trouble paying for medicines?: No Do you have trouble getting transportation to medical appointments?: No Do you have trouble paying your heating and electricity bill?: No Do you have trouble taking care of your child, family member or friend?: No Do you have trouble with day-to-day activities such as bathing, preparing meals, shopping, managing finances, etc.?: No Are you currently unemployed and looking for a job?: No Are you interested in more education?: No Please select the resources that you would like help with: None Currently or been in a relationship where the following occur: No concerns reported THRIVE Score: 0 SHAYY-7 AMB Questionnaire SHAYY-7 Date SHAYY - 7 assessed: 02/07/25 Source: Developed by Drs. Kayode Waite, Glo Schwab, Demarcus Yi and colleagues, with an educational renee from [email or web address]. Review of Systems Const All systems reviewed & are unremarkable except as noted in HPI and below Card Denies chest pain at rest, Denies chest pain with activity, Denies edema, Denies irregular heart rhythm, Denies claudication, Denies dyspnea, Denies dyspnea on exertion, Denies orthopnea, Denies paroxysmal nocturnal dyspnea and Denies slow heart rate Resp Denies cough, Denies dyspnea and Denies dyspnea on exertion GI Denies abdominal pain, Denies change in bowel habits, Denies excessive flatus, Denies nausea and Denies vomiting Physical exam (Primary Care) Vital Signs: Last Vital Signs Temp 97.1 F 08/13/25 08:21 Pulse 70 08/13/25 08:21 BP 110/70 08/13/25 08:21 Pulse Ox 98 08/13/25 08:21 Oxygen Delivery Method Room Air 08/13/25 08:21 BMI result Body Mass Index 28.2 Tobacco/Smoking Status: Tobacco use Status Tobacco use date assessed 08/13/25 08/13/25 08:25 Patient Tobacco Use Status Never used Tobacco 08/13/25 08:25 e-Cigarette/Vaping Use Never Used 08/13/25 08:25 Thrive Assessment: Date of Thrive Assessment Date Thrive assessed 02/05/25 08/13/25 08:25 Currently or been in a relationship where the following occur: No concerns reported Resp Effort & Inspection: normal respiratory effort Auscultation: clear to auscultation bilaterally Cardio Jugular venous distension: no JVD Rate: regular rate Rhythm: regular rhythm Heart sounds: S1 normal heart sound present and S2 normal heart sound present Extrem General: Yes full ROM Coding Level of Care Code Complex visit Add On G2211 Diagnoses Essential (primary) hypertension I10 Hyperlipidemia E78.5 GERD (gastroesophageal reflux disease) K21.9 HANNAH (obstructive sleep apnea) G47.33 Time Spent (min) 21 Assessment & Plan Assessment & Plan (1) Essential (primary) hypertension: Code(s): I10 - Essential (primary) hypertension Category: Medical (2) Hyperlipidemia: Code(s): E78.5 - Hyperlipidemia, unspecified Category: Medical (3) GERD (gastroesophageal reflux disease): Code(s): K21.9 - Gastro-esophageal reflux disease without esophagitis Category: Medical (4) HANNAH (obstructive sleep apnea): Comment: SHE HAS THE SYMPTOMS AND SLEEP STUDY FINDINGS CONSISTENT WITH SEVERE OBSTRUCTIVE SLEEP APNEA. 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 SHE IS VERY COMPLIANT IN USING THE CPAP, MISSING THE USAGE ONLY IF SHE IS NOT AT HOME. FOR A FEW WEEKS AFTER THE SHOULDER SURGERY SHE HAS NOT BEEN ABLE TO USE CPAP REGULARLY. NOW SHE HAS RESUMED USING IT EVERY NIGHT AND SLEEPS WELL. SHE USES F 40 FULL FACE MASK, WHICH IS COMFORTABLE Code(s): G47.33 - Obstructive sleep apnea (adult) (pediatric) Category: Medical Plan Plan 1. Hypertension The patient's blood pressure is well-controlled at 110/70 mmHg on the current regimen following a recent hypertensive crisis. Continue amlodipine 5 mg and losartan in the morning, and losartan in the evening. Repeat labs in 6 months to monitor. 2. Hypercholesterolemia Prior labs showed elevated cholesterol; however, the patient's [place] Risk Score is low, indicating that pharmacotherapy is not necessary at this time. Lipids will be re-evaluated with laboratory studies in 6 months. 3. GERD Continue famotidine. 4. Obstructive sleep apnea Continue CPAP machine. Follow-up with pulmonology. Orders: Orders Lipid Panel 6 Months E78.5 - Hyperlipidemia, unspecified Vitamin D 25-OH Total 6 Months E55.9 - Vitamin D deficiency, unspecified Comprehensive [place]. Panel Fast 6 Months I10 - Essential (primary) hypertension Medications: Changed From losartan 50 mg PO BID To losartan 50 mg PO BID 180 tabs 1RF 90 days Refilled amlodipine 5 mg (2 x 2.5 mg) PO DAILY 180 tabs 1RF 90 days
[2025-08-13 08:21] VITALS: BP 110/70; PULSE 70; TEMP 36.2; O2SAT 98; BMI 28.2
--- OUTSIDE RECORDS SUMMARY | 2025-08-13 08:23 | XMS_ITS | Patient Health Record ---
Author Organization [facility] Address [address] [place] [id number] Care Team Providers Care Recycler Forklift Driver Truck Driver Name Role Phone Shanta Arthur Primary Care Provider Kayode Mathew Unavailable [phone] Allergies Allergen (clinical drug ingredient) Drug/Non Drug Allergy documented on EMR Reaction Allergy Type Onset Date Status pravastatin Pravastatin Unknown Drug Allergy Act gladys Reason For Referral No Information Medications Medication SIG (Take, Route, Frequency, Duration) Notes Start Date End Date Status Famotidine 20 MG Tablet 1 Orally Every morning and every evening; Duration: 30 day(s) Active Multivitamin Active Loratadine 10 MG Tablet TAKE 1 TABLET BY MOUTH EVERY DAY Oral; Duration: 90 Active medroxyPROGESTERone Acetate 10 MG Tablet TAKE 1 TABLET DAILY FROM DAY 15 TO 24 OF CYCLE EVERY MONTH,DAY 1 BEING 1ST DAY OF MENSES Oral; Duration: 90 Active Ferrous Sulfate 325 (65 Fe) MG Tablet TAKE 1 TABLET BY MOUTH TWICE DAILY Oral; Duration: 90 Active Vitamin D Active Vitamin C 500 MG Tablet TAKE 1 TABLET BY MOUTH TWICE DAILY Oral; Duration: 30 Active amLODIPine Besylate 5 MG Tablet TAKE 1 T ABLET BY MOUTH EVERY DAY Oral; Duration: 90 Active Social History Tobacco Use: Social History Observation Description Date Details (start date - stop date) Never Smoker NA - NA Social History Drugs/Alcohol: Social Info Question Answer Notes Alcohol Screen Did you have a drink containing alcohol in the past year? Yes How often did you have a drink containing alcohol in the past year? Never (0 point) How many drinks did you have on a typical day when you were drinking in the past year? 1 or 2 drinks (0 point) How often did you have 6 or more drinks on one occasion in the past year? 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 Problems Problem Type SNOMED Code ICD Code Onset Dates Problem Status W/U Status Risk Notes Problem Gastroesophageal reflux disease (252201363) Gastroesophageal reflux disease (K21.9) Active confirmed Problem Screening for colon cancer (227149546) Screening for colon cancer (Z12.11) Active confirmed Problem Gastroesophageal reflux disease (434827004) Gastroesophageal reflux disease, unspecified whether esophagitis present (K21.9) Active confirmed Plan Of Treatment Future Test Test Name Order Date UPPER GI ENDOSCOPY 12/03/2022 COLONOSCOPY 12/03/2022 Insurance Providers Payer Name Payer Address Payer Phone Subscriber Number Group Number Insured Name Patient Relationship to Insured Coverage Start Date Coverage End Date [facility] [address] [place] [phone] [id number] JASPER CANO Self - patient is the insured Medical (General) History Medical History History ICD Code Denies [place],DM,CVA,Lung disease,renal dise ase Hypertension Hypercholesterolemia GERD Anemia due to her menses-sees Dr. Moses and Dr. Wagner Surgical History Surgery Date(Month/Year)
== END 2025-08-13 08:40 | disposition home or self-care (01) ==
LOC: HO.HMCH 08:12
PROVIDERS: PCP Internal Medicine; Visit Provider Internal Medicine
DX: I10 Essential (primary) hypertension (principal); E78.5 Hyperlipidemia, unspecified; K21.9 Gastro-esophageal reflux disease without esophagitis; G47.33 Obstructive sleep apnea (adult) (pediatric)

== ENCOUNTER 2025-08-21 14:40 | Outpatient (AMB) | payer OTHER, SELFPAY ==
[2025-08-21 14:43] VITALS: BMI 28.1
--- NOTE | 2025-08-21 14:43 | MHC.OFFVIS ---
Vital Signs 08/21/25 14:43 Height 4 ft 9 in Weight 130 lb BMI 28.1 Intake Visit Reasons: PO LT cubital/CTR 06/28/25 AR-ROM check Intake Note: Lavon is a 45 year old right hand dominant female who presents today for a Post-Operative Visit status post Left Cubital & Carpal Tunnel Release performed by Dr. Huang on 06/28/25. At her last visit she was referred to occupational therapy. Patient was instructed to avoid underwater activities for 1 more week and to remain at a 2 lb weight limit for 2 weeks. Patient reports she continues working with occupational therapy, currently lifitng 5 lbs. Patient states she was advised to continue occupational therapy for 1 more months. She would like to discuss her return to work status. She is expected to return today. 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 Huang on 06/28/25. At her last visit she was referred to occupational therapy. Patient was instructed to avoid underwater activities for 1 more week and to remain at a 2 lb weight limit for 2 weeks. Patient reports she continues working with occupational therapy, currently lifitng 5 lbs. Patient states she was advised to continue occupational therapy for 1 more months. Patient states that OT does not feel she should go beyond this lifting capacity for at least 1 more month. She would like to discuss her return to work status. She is expected to return today. 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 with negative chest x-ray HTN (hypertension) GERD (gastroesophageal reflux disease) Endometrial hyperplasia Hypercholesterolemia Rash due to allergy History of anemia Pure hyperglyceridemia Vitamin D insufficiency Asthma Surgical History History of decompression of ulnar nerve History of carpal tunnel release History of esophagogastroduodenoscopy (EGD) H/O colonoscopy History of D&C Family History Paternal Uncle Myocardial infarct Bipolar 1 disorder Mental health disorder Paternal Grandfather Stomach cancer Maternal Grandfather Lung cancer Mother Pancreatic cancer Father Essential hypertension Social History Household Members: Family Housing: Apartment Are you a primary critical care physician assistant to a significant other at home: No Do you presently have visiting nurse or other home services: No Alcohol intake: current Alcohol intake frequency: a few times a month Patient Tobacco Use Status: Never used Tobacco e-Cigarette/Vaping Use: Never Used Second Hand Smoke Exposure: No service: No Current occupational status: employed Current occupation: rt handed Current occupational exposures/hazards: No Sexual orientation: Straight/Heterosexual Gender identity: Female Cognitive needs: No Hearing needs: No Vision needs: Yes (glasses) Female Reproductive History Menstrual Age of Menarche: 9 Physical Exam Vital Signs: BMI result Body Mass Index 28.1 Extrem Other: Patient is alert, oriented, and in no acute distress. Neuro: Normal sensation of the tips of all digits of the left hand at this time Vascular: Cap refill brisk Pain: No tenderness to palpation about the incision sites on left wrist or elbow ROM: Range of motion of both left hand and left elbow is full and intact, painless Skin: Well approximated and well healed incision sites noted on medial left elbow and volar left wrist No lacerations or abrasions. General: No ecchymosis, erythema, or evidence of infection. Psych: Appears grossly normal Affect normal Attitude cooperative Assessment & Plan Assessment & Plan (1) Bilateral carpal tunnel syndrome: Code(s): G56.03 - Carpal tunnel syndrome, bilateral upper limbs Category: Medical (2) Cubital tunnel syndrome, bilateral: Code(s): G56.23 - Lesion of ulnar nerve, bilateral upper limbs Category: Medical Plan 1. Status post left cubital and carpal tunnel releases DOS 06/28/2025 Patient appears to be recovering well postoperatively Patient is educated about the typical recovery course Continue OT for range of motion and strengthening of the left wrist and elbow Out of work until 09/24/2025, as I do not feel it is advisable for the patient to return lifting 20 lb until OT has cleared her, and this was the clearance date provided by therapy Patient understands this and is amenable to this plan Patient follow-up as needed with any acute concerns Coding Level of Care Code Global (63039) Diagnoses Bilateral carpal tunnel syndrome G56.03 Cubital tunnel syndrome, bilateral G56.23
--- OUTSIDE RECORDS SUMMARY | 2025-08-21 20:35 | XMS_ITS | Patient Health Record ---
Author Organization [facility] Address [address] [place] [id number] Care Team Providers Care Substation Mechanic Name Role Phone Shanta Arthur Primary Care Provider Kayode Mathew Unavailable [phone] Allergies Allergen (clinical drug ingredient) Drug/Non Drug [...] Status Risk Notes Problem Gastroesophageal reflux disease (049316121) Gastroesophageal reflux disease (K21.9) Active confirmed Problem Screening for colon cancer (419615315) Screening for colon cancer (Z12.11) Active confirmed Problem Gastroesophageal reflux disease (232535264) Gastroesophageal reflux disease, unspecified whether esophagitis present (K21.9) Active confirmed Plan Of Treatment Future Test Test Name Order Date UPPER GI ENDOSCOPY 12/03/2022 COLONOSCOPY 12/03/2022 Insurance Providers Payer Name Payer Address Payer Phone Subscriber Number Group Number Insured Name Patient Relationship to Insured Coverage Start Date Coverage End Date [facility] [address] [place] [phone] [id number] JASPER CANO Self - patient is the insured Medical (General) History Medical History History ICD Code Denies [place],DM,CVA,Lung disease,renal dise ase Hypertension Hypercholesterolemia GERD Anemia due to her menses-sees Dr. Moses and Dr. Wagner Surgical History Surgery Date(Month/Year)
== END 2025-08-21 14:58 | disposition home or self-care (01) ==
LOC: HO.HOS 14:40
PROVIDERS: PCP Internal Medicine
DX: G56.03 Carpal tunnel syndrome, bilateral upper limbs (principal); G56.23 Lesion of ulnar nerve, bilateral upper limbs
CPT/HCPCS: 99024

== ENCOUNTER 2025-08-28 11:00 | Outpatient (RCR) | payer OTHER, SELFPAY ==
--- NOTE | 2025-07-25 14:57 | MHC.OT.EP ---
[facility] Office [address] [phone] F: [phone] F: [phone] Occupational Therapy Plan of Care Patient Name: Markel Garcia Date of Evaluation: 07/25/25 Diagnosis: s/p left cubital and carpal tunnel release Pain Location: Left elbow: 0/10 at rest 6/10 with activity Left wrist: 0/10 5/10 with activity Pain Score: 5 Pain Scale Used: Numeric (0 - 10) Aggravating Factors: Elbow ROM, forceful grasp Alleviating Factors: Ice, rest Assessment: Lavon is a 45 year old right hand dominant female referred to OT s/p Left Cubital & Carpal Tunnel Release performed by Dr. Huang on 06/28/25. Patient demonstrates decreased active range of motion in left thumb, wrist, elbow, and shoulder with guarded, protective movement patterns. Sensitivity is improving, however still prominent at the cubital tunnel. Quick DASH score of 65%, indicating significant upper extremity disability impacting activities of daily living. Pt was instructed in scar massage techniques to promote scar mobility and desensitization and importance of maintaining joint range of motion to prevent stiffness and promote optimal recovery. Pt would benefit from skilled OT to address desensitization, edema management, ROM deficits, strengthening, and functional retraining. Frequency and Duration: The patient will be seen 2x/wk for 6 weeks Short Term Goals: Decrease left wrist and elbow pain to <3/10 IND with scar massage and edema management techniques Pt will report decreased hypersensitivity to allow for functional grasp patterns Retirement Goals: Demo pain-free functional ROM in left thumb, wrist, elbow, and shoulder Decrease Quick DASH score to <30%, indicating minimal disability Improve L gross grasp >20# to increase ease with lifting/carrying IND with progression of HEP Treatment Plan: Therapeutic Exercise Therapeutic Activity Home Exercise Program Patient Education Desensitization/Sensory Re-ed Edema Control ADL Training Ultrasound MHP Joint Mobilization Soft Tissue Mobilization Electronically Signed By: Milagros Daly MS OTR/L Please Sign and return to therapist. Thank you once again for your referral.
--- NOTE | 2025-08-16 13:58 | MHC.OT.OP ---
[facility] Office [address] [phone] F: [phone] F: [phone] Occupational Therapy Progress Note Patient Name: Markel Garcia Diagnosis: s/p left cubital and carpal tunnel release Date of Surgery: 06/28/25 Date of Evaluation: 07/25/25 Treatments to Date: 5 Subjective: I was able to cook and mop yesterday Pain Score: 1 Pain Location: left elbow Objective Measures: Gross grasp R: 50# L: 15# Left wrist Flex/ext: 30/35 Elbow ext/flex - 0 - 100 degrees Functional Dexterity Test R: 29.0 seconds L: 33.7 seconds Assessment: Lavon is 7 weeks s/p left cubital and carpal tunnel release. She has follow up with ortho on 08/21. Patient reports improved functional use of L UE including dishes, folding laundry, and carrying light bags. 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 Light duty is not available. Excellent carryover with nerve glides and ROM exercises. Continues to demonstrate limitations with wrist extension and elbow flexion. Wrist AROM is 30 degrees flex, 35 degrees extension, elb flex 100 degrees. Gross grasp strength has improved to 15# on the left (compared to 50# on the right). Recommending continued skilled OT to focus on strengthening program, progressive functional activities, and ROM exercises. Short Term Goals: Decrease left wrist and elbow pain to <3/10 - MET IND with scar massage and edema management techniques - MET Pt will report decreased hypersensitivity to allow for functional grasp patterns - MET Chcf Goals: Demo pain-free functional ROM in left thumb, wrist, elbow, and shoulder Decrease Quick DASH score to <30%, indicating minimal disability Improve L gross grasp >20# to increase ease with lifting/carrying IND with progression of HEP Frequency and Duration: The patient will be seen 2x/wk for 6 weeks Treatment Plan: Therapeutic Exercise Therapeutic Activity Home Exercise Program Patient Education Desensitization/Sensory Re-ed Edema Control ADL Training Ultrasound MHP Joint Mobilization Soft Tissue Mobilization Electronically Signed By: Milagros Daly, MS OTR/L Reviewed/agree with student documentation: Therapist:
== END 2025-08-28 12:01 | disposition home or self-care (01) ==
LOC: HO.OTS 11:00
PROVIDERS: PCP Internal Medicine
DX: G56.23 Lesion of ulnar nerve, bilateral upper limbs (principal); G56.03 Carpal tunnel syndrome, bilateral upper limbs
CPT/HCPCS: 97110; 97140; 97165